=== PATIENT | male | born 1965 ===

== ENCOUNTER 2024-05-04 15:43 | Inpatient (IN) | payer BC, SELFPAY ==
[2024-05-04 15:48] VITALS: BP 140/83
--- NOTE | 2024-05-04 15:52 | HPS.HSE ---
Family Physician
-
Family Physician: Lesly GRIMM
Chief Complaint
-
NSTEMI/chest pain
History of Present Illness
58-year-old male with past medical history of insulin-dependent diabetes, HTN, hyperlipidemia presented to [facility] with complaints of chest pain for the last 2 to 3 days. Initial presentation to the emergency room showed a blood
pressure of 209/109 and EKG showed some abnormal T wave inversions and an heparin infusion was started after his troponins were positive. Echocardiogram showed an EF of 55-60% with apical anterior and apex abnormalities. He was eventually taken to
the Therapeutic Radiologist today and his left heart cath showed multivessel disease. Therefore he was transferred to [facility] for surgical evaluation.
Medical History
Past Medical History
Past Medical History: Reports HTN, Hypercholesterolemia, IDDM and MN
Past Surgical History: Reports None
Social History
Tobacco: Non-smoker
Alcohol: Occasional (weekly)
Drug: None
Personal:
Living: With Family
Family History
Family History: CAD
Allergies / Home Medications
Allergies reflects when Allergies were last updated in [facility].
Home Medications with original date entered in [facility]
Allergy/Medication List:
NKDA
Home Medications
�Medication �Instructions �Recorded
Humulin 70/30 U-100 Insulin 32 units SC BID 05/04/24
losartan 50 mg tablet 50 mg PO BID 05/04/24
rosuvastatin 20 mg tablet 20 mg PO DAILY 05/04/24
If medication reconciliation has not been performed, why?: Medication List N/A
Review of Systems
-
History Source: Patient (security orderly [id number])
A 12 point ROS was completed and negative except as noted: Yes
Cardiac: Reports Chest Pain
Physical Exam
Physical Exam
General: Well Developed and Well Nourished
HEENT: NormoCephalic and Moist mucous membranes
Respiratory: Clear
Cardiac: S1/S2 and Regular Rhythm
Breast: N/A
GI: Soft and Non Tender
Rectal: Deferred by Provider
Musculoskeletal: No Clubbing and No Edema
Skin: Warm and Dry
Neuro: AO x 3 and No Motor Deficits
Hematologic/Lymphatic: No Lymphadenopathy
Psych: Calm
Laboratory Results
-
05/04/24 17:17
05/04/24 17:17
Impression/Plan
-
IMPRESSION:
58 y/o male with PMHx listed above presented to [facility] with c/o CP x 2-3 days. He r/I for a NSTEMI and was found to have MVD via LHC. He was transferred to for CABG evaluation.
PLAN:
#CAD
#NSTEMI
- Patient's case will be discussed with attending physician. Further details regarding surgical timing intervention will be determined after attending physicians full evaluation
- Routine preoperative cardiothoracic surgery orders will be initiated.
- STS risk stratification score will be calculated after preoperative testing is complete
- Continue nitroglycerin paste and heparin gtt
- Surgery date TBD
- Continue ASA, check EKG
#Diabetes mellitus type 2
-Continue sliding scale insulin
-Hemoglobin A1c pending
#Hypertension
-Continue beta-blockers for blood pressure control
- Will hold losartan
#Hyperlipidemia
-Continue statin
--- NOTE | 2024-05-04 16:02 | CON.CAR ---
Addendum entered and electronically signed by Arley Lozano MD 05/04/24 17:34:
I saw and examined the patient.
The COMMUNITY DEVELOPMENT TECHNICIAN's note was reviewed and I agree with the note.
58-year-old male with a history of hypertension and diabetes who presented to [facility] with chest discomfort, severe hypertension and NSTEMI. Cath revealed multivessel disease Now transferred for evaluation for CABG by CT surgery. Currently
chest pain-free. Radial cath site stable.
-Continue IV heparin and aspirin
-Continue nitrates /Nitropaste if issues with recurrent chest pain would change to IV nitro
- Continue metoprolol
- CT surgery evaluationin progress. r
Original Note:
Consultation
Consultation Request
Date/Time Consultation Requested: 05/04/2024 15:55
Date/Time Consultation Performed: 05/04/2024 16:00
Requesting Provider: SIRISHA Velasquez
Performing Provider: SIRISHA Stewart for Dr. Lozano
Reason for Consultation: NSTEMI, CABG evaluation
Medical History
-
Chief Complaint: Chest pain
History of Present Illness:
Alon Zaragoza is a 58-year-old male with hypertension, dyslipidemia, and NIDDM who presented with acute onset of chest pain to [facility]. Initial blood pressure 200/109. He was found to have an elevated troponin. Transthoracic echocardiogram showed
preserved LVEF with apical lateral segment, apical anterior and apex abnormalities. He underwent cardiac catheterization with Dr. Inman. He was found to have multivessel coronary artery disease. He was transferred to [facility] for CABG
evaluation. He is currently free of chest pain at the time of this consultation.
Past Medical History
Past Medical History: CAD, HTN, Hypercholesterolemia and NIDDM
Past Surgical History: Other (Skin graft)
Social History
Alcohol: None
Drug: None
Personal:
Living: With Family
Family History
Family History: Reviewed & Not Pertinent
Review of Systems
-
History Source: Patient
All other systems: Negative unless noted
Constitutional: No Symptoms
EENT: No Symptoms
Respiratory: No Symptoms
Cardiac: No Symptoms
Abdomen/GI: No Symptoms
: No Symptoms
Musculoskeletal: No Symptoms
Skin: No Symptoms
Neurological: No Symptoms
Endocrine: No Symptoms
Hematologic/Lymphatic: No Symptoms
Physical Exam
Physical Exam
General: Well Developed, Well Nourished, No Apparent Distress and Comfortable
HEENT: Normocephalic, Anicteric and Moist Mucous Membranes
Respiratory: Clear and Non Labored Respirations
Cardiac: S1/S2 and Regular Rhythm
Breast: Deferred by me
GI: Soft, Non Tender, Non Distended and Normal Bowel Sounds
Rectal: Deferred by Provider
Genito-urinary: No Costovertebral Tender
Musculoskeletal: No Clubbing, No Cyanosis and No Edema
Skin: Warm and Dry
Neuro: AO x 3
Hematologic/Lymphatic: No Lymphadenopathy
Psych: Calm
Impression / Plan
-
IMPRESSION/PLAN: 58M with HTN, HLD, and NIDDM presented to [facility] with chest pain. An abnormal troponin led to C which demonstrated MVCAD.
NSTEMI
MVCAD
-Continue ASA/heparin
-Avoiding ACEI/ARB pending CABG evaluation
-Chest pain-free
-Right radial site stable without hematoma
-Preoperative testing per CT surgery
HTN emergency, resolved
-Initial blood pressure 200/109 in the emergency department at [facility]
-Outpatient losartan on hold
-Continue beta-tone and NTG paste
HLD
-Fasting lipid panel pending
-High intensity statin with goal LDL <55
NIDDM, HgbA1c pending
DATA:
Transthoracic echocardiogram, 05/04/2024 ([facility]):
#1 left ventricular systolic function is low normal
2. Left ventricular ejection fraction is estimated 55-60%
3. Apical lateral segment, apical anterior segment, and apex are abnormal
4. Grade 1 DD
5. Borderline LVH
6. TDS
7. Mildly dilated LA
8. Mild mitral valve regurgitation
Cardiac catheterization, 05/04/2024 ([facility]):
#1 PDA is occluded with collaterals
2. Significant distal RCA lesion
3. Significant mid LAD and proximal and mid junction D2 lesions
4. Significant OM 4 proximal and moderate mid lesions
5. OM 3 is an atretic vessel with subtotal stenosis
6. Mild disease and multiple other areas
Data Reviewed
-
Medical Tests (Nuc Med, Echo etc): Report Reviewed by me
Old Records: Reviewed
--- NOTE | 2024-05-04 16:06 | PTCARENOTE ---
Received patient transferred by ambulance to 2244. IV heparin infusing at 15ml/hr on the pump via left hand. Right radial site dressing is dry and intact with palpable radial pulse. Patient speaks malayalam, will use language line to do nursing
admission assessment. Call boyle within reach, family at the bedside.
[2024-05-04 16:13] VITALS: BMI 29.8
--- NOTE | 2024-05-04 17:23 | PTCARENOTE ---
Nursing admission assessment completed using ipad aix system administrator to answer questions. Patient denies any chest pain or sob, aware that he should notify nursing with any discomfort. Patient noted to be coughing occasionally and stated he has had some
throat pain for the past 3 days and has had a cough with some dark brown mucous. Notified CT surgery/cardiology OVEREDGE SEWER, labs sent as ordered.
[2024-05-04 17:32] LABS: Hematocrit 34.7 % (39.0-52.0); Hemoglobin 11.8 g/dL (13.0-18.0); Mean Corpuscular Hgb 30.3 pg (27.0-31.0); Mean Platelet Volume 10.3 fL (7.4-10.4); Platelet Count 238 10^3/uL (130-400); White Blood Cell Count 7.5 10^3/uL (4.8-10.8)
[2024-05-04 17:42] LABS: INR 0.97; PT 13.2 Sec (11.4-14.6)
[2024-05-04 17:44] LABS: APTT 85.1 Sec (23.4-35.0)
[2024-05-04 17:46] LABS: Glucose - Point of Care 230 mg/dl (70-99)
[2024-05-04 17:59] LABS: ALT (SGPT) 21 U/L (0-50); AST (SGOT) 29 U/L (17-59); Alkaline Phosphatase 127 U/L (38-126); Blood Urea Nitrogen 17 mg/dl (9-20); Calcium 9.1 mg/dl (8.4-10.2); Carbon Dioxide 23 mmol/L (22-30); Chloride 100 mmol/L (98-107); Estimated Creatinine Clearance 100 ml/min; Glucose 234 mg/dl (70-99); HDL Cholesterol 105 mg/dl; LDL Cholesterol, Calculated 32 mg/dl; Magnesium 1.8 mg/dl (1.6-2.3); Potassium 4.5 mmol/L (3.5-5.1); Sodium 135 mmol/L (135-145); Total Bilirubin 0.7 mg/dl (0.2-1.3); Total Cholesterol 167 mg/dl (50-199); Total Protein 6.7 g/dl (6.3-8.2); Triglyceride 152 mg/dl (10-149); Very Low Density Lipoprotein 30 mg/dl (0-30); eGFR > 60.00
[2024-05-04] MEDS: NOVOLOG FLEXPEN-MODERATE RESISTANCE 3 UNITS SC (18:00)
[2024-05-04 18:11] VITALS: BP 155/75
[2024-05-04 18:13] VITALS: BP 137/79
[2024-05-04 19:17] VITALS: BP 142/78
[2024-05-04] MEDS: LOPRESSOR 25 MG PO (19:26)
[2024-05-04] MEDS: COLACE 100 MG PO (19:26)
[2024-05-04] MEDS: SENOKOT 8.6 MG PO (19:26)
[2024-05-04] MEDS: NITRO-BID TOPICAL ×2 (19:30→23:54)
--- NOTE | 2024-05-04 19:44 | PTCARENOTE ---
Pt. received at change of shift. Pt. seen and assessed in room. Pt.'s son and at the bedside. Pt. AOx3, tele reading NSR. Pt. reports no chest pain at this time, but slight headache. Otherwise sitting comfortably in bed. This RN explained the
plan of care to patient and family, both verbalizing plan of care. Heparin gtt running at 1500units/hr, next PTT at 2300. Call boyle within reach. Continuing to monitor at this time.
[2024-05-04] MEDS: ANESTHETIC LOZENGE 1 LOZENGE PO (21:09)
[2024-05-04 21:42] LABS: Glucose - Point of Care 267 mg/dl (70-99)
[2024-05-04 22:59] VITALS: BP 112/72
[2024-05-04] MEDS: TYLENOL 650 MG PO (23:11)
[2024-05-04 23:27] LABS: APTT 115.5 Sec (23.4-35.0)
[2024-05-05] VITALS (8 sets, daily range): BP systolic 145–177; BP diastolic 74–97; BMI 29.7
--- NOTE | 2024-05-05 01:16 | W.PN.CT ---
Today's Communication / Plan
-
Plan:
-Cont. current meds (ASA, Heparin gtt, NTG paste, Lopressor, Novolog, Crestor, Artificial tears)
-Ongoing preop workup/evaluation
-Avoid JAMES-I/ARBs/Farxiga in preparation for OR
-Dr. Zaragoza to see and determine timing of CABG
Assessment / Plan
-
Assessment: 58 y/o male transfer from [facility] with MVCAD
-Multivessel CAD
-NSTEMI
-USA
-No valvular disease, per echo 05/04/24 @ [facility]
-LVEF 50-60%
-HTN (presented to [facility] with hypertensive urgency -BP 209/109)
-HLD
-T2DM (insulin dependent, A1C pending)
-Hx Shingles
-S/P skin grafts
Discussed patient care with: Cardiology, Nursing, Respiratory Therapy, Pharmacy and Care Team
Subjective
-
Date of Service: May 05, 2024
C/o 10/10 eye pain overnight which required flushing with saline this AM, appears to have resolved as pt is currently sound asleep. Denies CP/SOB
Objective Data
-
Lab Results
05/04/24 17:17
PT 13.2 Sec (11.4-14.6) 05/04/24 17:17
INR 0.97 05/04/24 17:17
APTT 115.5 Sec (23.4-35.0) H 05/04/24 23:07
Vital Signs
Vital Signs
Temp Pulse Resp BP Pulse Ox
97.8 F 89 18 112/72 97
05/04/24 23:11 05/04/24 23:00 05/04/24 23:11 05/04/24 22:59 05/04/24 23:11
SaO2: 97 (RA)
Physical Exam
-
General: Awake, Oriented and AOx3
Cardiovascular: Regular rate & rhythm, No Murmurs, No Rub and No Gallop
Respiratory: Clear
Extremities: No Edema
Data Reviewed
-
Lab Results: Results Reviewed
Medications: Active Meds Reviewed
Chest X-Ray: Report Reviewed and Image Reviewed
ECG: Report Reviewed and Image Reviewed
--- NOTE | 2024-05-05 03:15 | PTCARENOTE ---
VSS, no acute changes in assessment. SR 70s-80s. B/L radial and DP pulses palpable. Heparin gtt infusing per protocol. heart tones clear. B/L breath sounds present. pt wore 2L NC overnight, POX 97. on room air this morning, POX 99%. bowel sounds
audible. pt voids without difficulty. AM labs drawn and sent, EKG completed. pt c/o right eye discomfort, unrelieved by eye drops. CT PA notified of family's request to come to bedside.
[2024-05-05] MEDS: ANESTHETIC LOZENGE 1 LOZENGE PO ×2 (03:19→23:21)
--- NOTE | 2024-05-05 04:20 | PTCARENOTE ---
CT PA at bedside to flush pt's eye out with saline. pt reports the discomfort improved but is still there. orders received for artificial tears.
[2024-05-05 04:40] LABS: PT 13.5 Sec (11.4-14.6)
[2024-05-05 04:43] LABS: APTT 141.5 Sec (23.4-35.0)
[2024-05-05 04:59] LABS: ALT (SGPT) 20 U/L (0-50); AST (SGOT) 25 U/L (17-59); Albumin 3.8 g/dl (3.5-5.0); Alkaline Phosphatase 122 U/L (38-126); Blood Urea Nitrogen 18 mg/dl (9-20); Calcium 9.3 mg/dl (8.4-10.2); Carbon Dioxide 23 mmol/L (22-30); Chloride 103 mmol/L (98-107); Estimated Creatinine Clearance 89 ml/min; Glucose 259 mg/dl (70-99); Potassium 4.5 mmol/L (3.5-5.1); Sodium 138 mmol/L (135-145); Total Bilirubin 0.8 mg/dl (0.2-1.3); Total Protein 6.6 g/dl (6.3-8.2); eGFR > 60.00
[2024-05-05] MEDS: NITRO-BID TOPICAL ×3 (07:00→23:12)
[2024-05-05] MEDS: HEPARIN 25000 UNITS/250 ML IV ×2 (07:10→23:56)
[2024-05-05 07:47] LABS: Glucose - Point of Care 218 mg/dl (70-99)
[2024-05-05] MEDS: LOPRESSOR 25 MG PO ×2 (07:57→19:52)
[2024-05-05] MEDS: LOW STRENGTH ASPIRIN 81 MG PO (07:57)
[2024-05-05] MEDS: COLACE 100 MG PO ×2 (07:57→19:52)
[2024-05-05] MEDS: SENOKOT 8.6 MG PO ×2 (07:57→19:52)
[2024-05-05] MEDS: NOVOLOG FLEXPEN-MODERATE RESISTANCE 3 UNITS SC ×2 (08:01→12:04)
[2024-05-05] MEDS: CRESTOR 20 MG PO (08:01)
[2024-05-05] MEDS: REFRESH EYE DROPS (PF) 1 DROPS OPHTH (08:01)
--- NOTE | 2024-05-05 08:10 | W.PN.CD ---
Today's Communication / Plan
-
CP free overnight.
No new recommendation
Impression / Plan
-
IMPRESSION/PLAN: 58M with HTN, HLD, and NIDDM presented to [facility] with chest pain. An abnormal troponin led to [facility] which demonstrated MVCAD.
NSTEMI
MVCAD
-Continue ASA/heparin
-Avoiding ACEI/ARB pending CABG evaluation
-Chest pain-free
-Right radial site stable without hematoma
-Preoperative testing per CT surgery in progress
HTN emergency, resolved
-Initial blood pressure 200/109 in the emergency department at [facility]
-Outpatient losartan on hold
-Continue beta-tone
- NTP stopped due to headache
HLD
-High intensity statin with goal LDL <55
NIDDM, HgbA1c pending
DATA:
Transthoracic echocardiogram, 05/04/2024 ([facility]):
#1 left ventricular systolic function is low normal
2. Left ventricular ejection fraction is estimated 55-60%
3. Apical lateral segment, apical anterior segment, and apex are abnormal
4. Grade 1 DD
5. Borderline LVH
6. TDS
7. Mildly dilated LA
8. Mild mitral valve regurgitation
Cardiac catheterization, 05/04/2024 ([facility]):
#1 PDA is occluded with collaterals
2. Significant distal RCA lesion
3. Significant mid LAD and proximal and mid junction D2 lesions
4. Significant OM 4 proximal and moderate mid lesions
5. OM 3 is an atretic vessel with subtotal stenosis
6. Mild disease and multiple other areas
Physical Exam
Vital Signs/Labs
Vital Signs
Temp Pulse Resp BP Pulse Ox
97.8 F 81 18 159/75 95
05/05/24 07:52 05/05/24 07:51 05/05/24 07:52 05/05/24 07:51 05/05/24 07:52
05/04/24 05/05/24 05/06/24
06:59 06:59 06:59
Actual Weight 88.7 kg
05/04/24 17:17
05/05/24 03:28
PT 13.5 Sec (11.4-14.6) 05/05/24 03:28
INR 1.00 05/05/24 03:28
APTT 141.5 Sec (23.4-35.0) H 05/05/24 03:28
Magnesium 1.8 mg/dl (1.6-2.3) 05/04/24 17:17
Triglycerides 152 mg/dl (10-149) H 05/04/24 17:17
LDL Cholesterol, Calc 32 mg/dl 05/04/24 17:17
VLDL Cholesterol, Calc 30 mg/dl (0-30) 05/04/24 17:17
HDL Cholesterol 105 mg/dl 05/04/24 17:17
Physical Exam
Constitutional: No acute distress
Cardiovascular: Rhythm & rate is regular
Respiratory: Respiratory effort normal
GI: Soft
Neuro/Psych: Alert
Other: Other (cath site is fine)
Data Reviewed
-
Date of Service: May 05, 2024
Medical Decision Making: Reviewed Test Results
Medical Tests (PFT, Pathology etc): Report Reviewed by me
Labs: Labs Reviewed by me
[2024-05-05 09:11] LABS: Glycohemoglobin (HgbA1c) 10.6 % (4.0-5.6)
--- NOTE | 2024-05-05 11:19 | W.PN.UPDATE ---
Update Note
Progress Note Update
Occluded NICOLE d/shanon Bae. No intervention as unilateral disease and recommend outpatient follow-up.
[2024-05-05 12:05] LABS: Glucose - Point of Care 228 mg/dl (70-99)
--- NOTE | 2024-05-05 12:24 | CM ---
spoke to pt, and with son ( translating), he is prev indep, lives with his , 2 sons and a daughter in law in a 1 story home with no steps to enter. he is being worked up for CABG this admission. cm to preop teach medically ready. cm
following
[2024-05-05] MEDS: NITRO-BID 1 INCH TOPICAL (17:03)
[2024-05-05 17:13] LABS: Glucose - Point of Care 254 mg/dl (70-99)
[2024-05-05] MEDS: NOVOLOG FLEXPEN-MODERATE RESISTANCE 5 UNITS SC (17:14)
--- NOTE | 2024-05-05 17:25 | PTCARENOTE ---
Heparin gtt continues; Patient has denied chest pain throughout this shift; Telemetry shows normal sinus rhythm on the monitor; Patient on room air; PRN eye drops administered x1 per patient request; CT chest and cerebrovascular ultrasound completed
today; Son, , and other family members with patient throughout the day; Plan of care ongoing
[2024-05-05 18:45] LABS: APTT 104.2 Sec (23.4-35.0)
--- NOTE | 2024-05-05 21:52 | PTCARENOTE ---
Received patient at change of shift. NSR on the monitor, HR in the 80-90s. VSS. Urvashi patel in room to communicate with pt. No complaints from pt at this time, call boyle within reach.
[2024-05-05 22:26] LABS: Glucose - Point of Care 211 mg/dl (70-99)
[2024-05-06] VITALS (9 sets, daily range): BP systolic 125–174; BP diastolic 81–108; BMI 29.0
[2024-05-06] MEDS: ANESTHETIC LOZENGE 1 LOZENGE PO ×2 (03:36→20:33)
[2024-05-06] MEDS: TYLENOL 650 MG PO ×2 (03:36→21:32)
[2024-05-06 04:00] LABS: APTT 73.8 Sec (23.4-35.0)
[2024-05-06] MEDS: NITRO-BID TOPICAL ×3 (06:10→18:17)
--- NOTE | 2024-05-06 06:22 | W.PN.UPDATE ---
Update Note
Progress Note Update
CARDIAC SURGERY ATTENDING:
It was my pleasure to evaluate Mr. Zaragoza. I reviewed his available imaging. His preoperative workup is ongoing at present. I had a long conversation with Mr. Zaragoza and his family with the aid of [employer] dehydrogenation operator #[id number]. We reviewed his
coronary pathology, discussed the proposed operative interventions, reviewed the periprocedural risks (including, but not limited to, , stroke, FL, arrhythmia, PNA, MARISOL/F, bleeding, and infection), discussed the expected in-hospital
postprocedural course, and reviewed the expected outpatient recovery. All questions were answered to the best of my abilities. The patient was agreeable to proceed with surgery. I anticipate coronary artery bypass grafting x 3-5 with LONGORIA to LAD,
possible radial artery to OM, greater saphenous vein grafts to PDA, D2, and potentially D1. His carotid ultrasound demonstrated 100% occluded NICOLE, additional imaging of his head and neck have been ordered. We will complete the remainder of his
preoperative workup. I have scheduled him for surgical intervention this coming Saturday.
Thank you for the opportunity participate in the care of this patient.
Please call with any questions or concerns.
Olu Zaragoza MD
[phone]
--- NOTE | 2024-05-06 06:51 | W.PN.CT ---
Today's Communication / Plan
-
Plan:
-Cont. current meds (ASA, Heparin gtt, NTG paste, Lopressor, Novolog, Crestor, Artificial tears)
-Ongoing preop workup/evaluation (CTA of head/neck today)
-Avoid JAMES-I/ARBs/Farxiga in preparation for OR
-Cleared for surgery by Vascular Surgery in light of occluded NICOLE
-For CABG by Dr. Zaragoza on Friday 05/11
Assessment / Plan
-
Assessment: 58 y/o male transfer from [facility] with MVCAD
-Multivessel CAD
-NSTEMI
-[place]
-No valvular disease, per echo 05/04/24 @ [facility]
-LVEF 50-60%
-HTN (presented to [facility] with hypertensive urgency -BP 209/109)
-HLD
-T2DM (insulin dependent, A1C pending)
-Hx Shingles
-Carotid artery disease (100% occluded NICOLE per u/s 05/05/24)
-S/P skin grafts
Discussed patient care with: Cardiology, Nursing, Respiratory Therapy, Pharmacy and Care Team
Subjective
-
Date of Service: May 06, 2024
No issues overnight. Denies CP/SOB
Objective Data
-
Lab Results
05/04/24 17:17
05/05/24 03:28
PT 13.5 Sec (11.4-14.6) 05/05/24 03:28
INR 1.00 05/05/24 03:28
APTT 73.8 Sec (23.4-35.0) H 05/06/24 03:03
Vital Signs
Vital Signs
Temp Pulse Resp BP Pulse Ox
97.9 F 93 18 140/86 95
05/06/24 04:19 05/06/24 04:00 05/06/24 04:19 05/06/24 02:38 05/06/24 04:19
CT Intake/Output/Weight
05/05/24 05/05/24 05/06/24
06:59 18:59 06:59
Intake Total 144 / 144
Balance 144 / 144
SaO2: 95 (RA)
Physical Exam
-
General: Awake, Oriented and AOx3
Cardiovascular: Regular rate & rhythm, No Murmurs and No Gallop
Respiratory: Decreased Breath Sounds
Sternum: Stable
Incision: Clean, Dry, Intact and Dressing Intact
Extremities: No Edema
Data Reviewed
-
Lab Results: Results Reviewed
Medications: Active Meds Reviewed
Chest X-Ray: Report Reviewed and Image Reviewed
ECG: Report Reviewed and Image Reviewed
--- NOTE | 2024-05-06 08:02 | PN.DE.MGMTRT ---
Insulin Management
- -
05/06/2024 Diabetes Management Consult
Patient transferred from [facility], presented with chest pain, Nstemi, found to have multivessel disease. PMH diabetes, HTN, HLD. Prior to admission was taking 70/30 insulin 32 units BID. A1C 10.6%, cr .9, eGFR > 60.
Attempted to see patient twice this morning, patient off of the unit for testing.
Patient for CABG Saturday, 05/11. Patient receiving only corrective insulin. Glucose range yesterday 211 to 259, received 3 to 5 units corrective insulin. Will restart 70/30 insulin today at reduced dose 20 units BID first dose this AM with
moderate corrective insulin. 1800 calorie diet ordered.
Will follow
Discussed with patients nurse.
Diabetes History
- -
Pre-Admission Diabetes Regimen
Lab Results
Hemoglobin A1c 10.6 % (4.0-5.6) H 05/04/24 17:17
Insulin Pump Settings
IP Diabetes Regimen
05/05/24 05/05/24 05/05/24
12:03 17:12 22:22
POC Glucose 228 H 254 H 211 H
Meal type: Dinner
Meal type: Breakfast
Amount consumed: 100%
Amount consumed: 100%
Patient Education
[2024-05-06] MEDS: COLACE 100 MG PO ×2 (08:22→20:32)
[2024-05-06] MEDS: LOPRESSOR 25 MG PO (08:22)
[2024-05-06] MEDS: CRESTOR 20 MG PO (08:22)
[2024-05-06] MEDS: MIRALAX 17 GRAMS PO (08:22)
[2024-05-06] MEDS: SENOKOT 8.6 MG PO ×2 (08:22→20:32)
[2024-05-06] MEDS: LOW STRENGTH ASPIRIN 81 MG PO (08:22)
--- NOTE | 2024-05-06 08:46 | PN.CDI ---
CDI
- -
CDI:
Physician Documentation Request
Admit Date: 05/04/24 15:43
Dear Doctor Blake,
Patient admitted with multivessel disease.
Please review the following and provide your response in the progress notes.
The purpose of this query is not to question medical judgement, but to ensure the accuracy of the conditions reported for your patient.
Diagnosis: Hypertensive emergency
The diagnosis is documented in the record on 05/05.
There is either a lack of clinical support for this condition in the current medical record, or there is a lack of recognized standard criteria to support the condition.
Essential primary hypertension
Hypertensive Urgency - B/P is severely elevated (systolic > or = to 180 or diastolic > or = to 110) but there is no associated organ damage. Symptoms may include: headache, shortness of breath, nosebleeds, severe anxiety. Treatment usually consists
of addition to or adjusting of oral medications and does not generally necessitate hospitalization.
Hypertensive Emergency - B/P is severely elevated (systolic > or = to 180 or diastolic > or = to 110) but can occur at lower levels especially in patients who did not previously have high B/P. There is usually associated organ damage. Symptoms may
include: memory loss, LOC, CVA, VA, angina, renal failure, pulmonary edema. Generally requires more aggressive treatment and a hospitalization.
The request is for one of the following:
- Additional documentation to support the condition. Indicate if this is in lieu of what may be considered standard criteria, and/or support why the standard criteria may not be present for this patient.
- A more appropriate diagnosis, reflecting the patient's condition
- Hypertensive emergency remains a known or suspected condition for this patient and is further supported by (include additional documentation in the medical record- Ex/ associated organ damage)
- Hypertensive emergency has been ruled out and a more appropriate diagnosis for this patient's condition is .
- Other (please specify)
- Unable to determine
Use of terms such as suspected, likely, concern for, or probable (associated with a specific diagnosis that is being evaluated, monitored, or treated as if it exists) are acceptable and can be coded in the inpatient setting, when documented at the
time of discharge.
Thank you,
Camryn Tam RN, BSN
CDI Specialist
Available via [place] text
Please use your independent medical judgment in providing your response.
--- NOTE | 2024-05-06 08:59 | PN.CDI ---
CDI
- -
CDI:
Physician Documentation Request
Admit Date: 05/04/24 15:43
Dear Doctor Blake,
Patient admitted with multivessel disease.
05/05 Cardiology PN: 'HTN emergency, resolved
-Initial blood pressure 200/109 in the emergency department at [facility]
-Outpatient losartan on hold
-Continue beta-tone
- NTP stopped due to headache'
Please review the following and provide your response in the progress notes.
The purpose of this query is not to question medical judgement, but to ensure the accuracy of the conditions reported for your patient.
Diagnosis: Hypertensive emergency
The diagnosis is documented in the record on 05/05.
There is either a lack of clinical support for this condition in the current medical record, or there is a lack of recognized standard criteria to support the condition.
Essential primary hypertension
Hypertensive Urgency - B/P is severely elevated (systolic > or = to 180 or diastolic > or = to 110) but there is no associated organ damage. Symptoms may include: headache, shortness of breath, nosebleeds, severe anxiety. Treatment usually consists
of addition to or adjusting of oral medications and does not generally necessitate hospitalization.
Hypertensive Emergency - B/P is severely elevated (systolic > or = to 180 or diastolic > or = to 110) but can occur at lower levels especially in patients who did not previously have high B/P. There is usually associated organ damage. Symptoms may
include: memory loss, LOC, CVA, ND, angina, renal failure, pulmonary edema. Generally requires more aggressive treatment and a hospitalization.
The request is for one of the following:
- Additional documentation to support the condition. Indicate if this is in lieu of what may be considered standard criteria, and/or support why the standard criteria may not be present for this patient.
- A more appropriate diagnosis, reflecting the patient's condition
- Hypertensive emergency remains a known or suspected condition for this patient and is further supported by (include additional documentation in the medical record- Ex/ associated organ damage)
- Hypertensive emergency has been ruled out and a more appropriate diagnosis for this patient's condition is .
- Other (please specify)
- Unable to determine
Use of terms such as suspected, likely, concern for, or probable (associated with a specific diagnosis that is being evaluated, monitored, or treated as if it exists) are acceptable and can be coded in the inpatient setting, when documented at the
time of discharge.
Thank you,
Camryn Tam RN, BSN
CDI Specialist
Available via [facility] text
Please use your independent medical judgment in providing your response.
--- NOTE | 2024-05-06 09:29 | PTCARENOTE ---
Patient received at change of shift; Patient offers no complaints of pain or shortness of breath; Patient reports constipation, PRN miralax given; Heparin gtt infusing; radiation monitor demonstrates normal sinus rhythm; Plan of care ongoing
[2024-05-06 09:35] LABS: Glucose - Point of Care 209 mg/dl (70-99)
[2024-05-06] MEDS: NOVOLOG MIX 70/30 FLEXPEN 20 UNITS SC ×2 (09:36→18:13)
[2024-05-06] MEDS: NOVOLOG FLEXPEN-MODERATE RESISTANCE 3 UNITS SC ×2 (09:37→18:14)
--- NOTE | 2024-05-06 12:06 | CM ---
CM following for DC planning needs.
Met w/ patient, son Jerry and spouse at bedside. Son, Jerry translated for patient.
Plan is for Surgery, 05/11.
We reviewed CM role. Will plan to meet w/ patient on Saturday to complete pre-op teaching w/ family + bisque finisher.
Antic. DC to home w/ family support once medically stable.
Will follow.
[2024-05-06 12:49] LABS: Glucose - Point of Care 317 mg/dl (70-99)
[2024-05-06] MEDS: NOVOLOG FLEXPEN-MODERATE RESISTANCE 7 UNITS SC (12:59)
[2024-05-06 18:05] LABS: Glucose - Point of Care 215 mg/dl (70-99)
--- NOTE | 2024-05-06 18:45 | W.PN.CD ---
Today's Communication / Plan
-
Monitor BP.
Betab;locker increased to 50mg BID
can add amlodipine if addtional BPO control is needed.
Impression / Plan
-
IMPRESSION/PLAN: 58M with HTN, HLD, and NIDDM presented to [facility] with chest pain. An abnormal troponin led to [facility] which demonstrated MVCAD.
NSTEMI
MVCAD
-Continue ASA/heparin
-Avoiding ACEI/ARB pending CABG evaluation
-Chest pain-free
-Right radial site stable without hematoma
-Preoperative testing per CT surgery in progress
HTN emergency, resolved
-Initial blood pressure 200/109 in the emergency department at [facility]
-Continue beta-tone
- NTP
NICOLE occlusion -
per notes CT surgery has reviewed with vascular
plan to proceed with CABg
HLD - Rosuvasttain
-High intensity statin with goal LDL <55
NIDDM, HgbA1c >10
DM masnagment consult has been requested
DATA:
Transthoracic echocardiogram, 05/04/2024 ([facility]):
#1 left ventricular systolic function is low normal
2. Left ventricular ejection fraction is estimated 55-60%
3. Apical lateral segment, apical anterior segment, and apex are abnormal
4. Grade 1 DD
5. Borderline LVH
6. TDS
7. Mildly dilated LA
8. Mild mitral valve regurgitation
Cardiac catheterization, 05/04/2024 ([facility]):
#1 PDA is occluded with collaterals
2. Significant distal RCA lesion
3. Significant mid LAD and proximal and mid junction D2 lesions
4. Significant OM 4 proximal and moderate mid lesions
5. OM 3 is an atretic vessel with subtotal stenosis
6. Mild disease and multiple other areas
Physical Exam
Vital Signs/Labs
Vital Signs
Temp Pulse Resp BP Pulse Ox
98.6 F 90 18 142/81 98
05/06/24 15:38 05/06/24 18:00 05/06/24 15:38 05/06/24 15:26 05/06/24 15:45
05/05/24 05/06/24 05/07/24
06:59 06:59 06:59
Actual Weight 88.7 kg 86.6 kg
05/04/24 17:17
05/05/24 03:28
PT 13.5 Sec (11.4-14.6) 05/05/24 03:28
INR 1.00 05/05/24 03:28
APTT 73.8 Sec (23.4-35.0) H 05/06/24 03:03
Magnesium 1.8 mg/dl (1.6-2.3) 05/04/24 17:17
Triglycerides 152 mg/dl (10-149) H 05/04/24 17:17
LDL Cholesterol, Calc 32 mg/dl 05/04/24 17:17
VLDL Cholesterol, Calc 30 mg/dl (0-30) 05/04/24 17:17
HDL Cholesterol 105 mg/dl 05/04/24 17:17
Physical Exam
Constitutional: No acute distress
Cardiovascular: Rhythm & rate is regular
Respiratory: Respiratory effort normal
GI: Soft
Neuro/Psych: Alert
Data Reviewed
-
Date of Service: May 06, 2024
Medical Decision Making: Reviewed Test Results
--- NOTE | 2024-05-06 20:10 | PTCARENOTE ---
Addendum entered by Pamella Del Angel RN 05/06/24 22:32:
Patient still complaining of sore throat-- 15/10 pain. Gave Tylenol-- see MAR. Talked with son who states father has GERD. Discussed could be possible reflux given it is happening at night when patient lays flat. Told patient to call if pain does
not get better with everything given. Call boyle within reach.
Addendum entered by Pamella Del Angel RN 05/06/24 22:31:
Robitussin given-- see MAR.
Original Note:
Received patient at change of shift. Patient awake, alert, and oriented sitting on edge of bed. Family bedside. BP 165/88, NSR 70s-80s, 97% on room air. Patient c/o coughing and sore throat. States he has been coughing the last few nights.. Gave
Cepacol-- see MAR. Reached out to Narendra Jesus NP, to see about getting a cough syrup. Heparin drip running at 1200 units/min through left hand IV. Discussed plan of care. Verbalized understanding. Call boyle within reach.
[2024-05-06] MEDS: LOPRESSOR 50 MG PO (20:32)
[2024-05-06] MEDS: ROBITUSSIN DM 5 ML PO (21:01)
[2024-05-06] MEDS: HEPARIN 25000 UNITS/250 ML IV (21:02)
[2024-05-06 22:50] LABS: Glucose - Point of Care 105 mg/dl (70-99)
[2024-05-07] VITALS (8 sets, daily range): BP systolic 121–147; BP diastolic 64–86; BMI 29.0
[2024-05-07] MEDS: NITRO-BID TOPICAL ×2 (00:26→06:27)
--- NOTE | 2024-05-07 04:57 | W.PN.CT ---
Today's Communication / Plan
-
Plan:
-c/o dry cough, sore throat, mostly at night since Saturday. Remains afebrile -tx with Robitussin, Cepacol last night without much relief. Denies any pain or difficulty swallowing food. Denies nasal congestion or postnasal drip. Started Protonix for
possible GERD. R/o influenza/Covid (both negative)
-Denies any CP at rest or with walking. Refuses Nitro paste d/t headache. on Iv Heparin @ 1200 (renewed)
-Lopressor was increased to 50 bid for HTN
-Cont. current meds (ASA, Heparin gtt, Lopressor, Novolog 70/30, Crestor, Artificial tears)
-Ongoing preop workup/evaluation
-CTA of head/neck today 05/06 confirmed occluded NICOLE. Widely patent left carotid arterial system and proximal intracranial arterial circulation bilaterally.
-Avoid JAMES-I/ARBs/Farxiga in preparation for OR
-Cleared for surgery by Vascular Surgery in light of occluded NICOLE
-tentatively for CABG by Dr. Zaragoza on Friday 05/11
Assessment / Plan
-
Assessment: 58 y/o male transfer from [facility] with MVCAD
-Multivessel CAD
-NSTEMI
-USA
-100% occluded NICOLE, presumed chronic (US 05/05/24, Head/neck CTA 05/06/24)
-No valvular disease, per echo 05/04/24 @ [facility]
-LVEF 50-60%
-HTN (presented to [facility] with hypertensive urgency -BP 209/109)
-HLD
-T2DM (insulin dependent, A1C pending)
-Hx Shingles
-Carotid artery disease (100% occluded NICOLE per u/s 05/05/24)
-S/P skin grafts
-GERD
Chest CT 05/05/24:
1. No definitive acute abnormalities within the chest.
2. Normal caliber thoracic aorta with minimal foci of calcified plaque within the arch.
3. Moderate calcified plaque within the left coronary artery.
4. Small nodular area of consolidation within the posterior right lower lobe, likely atelectasis.
Carotid US 05/05/24:
1. Right carotid: Occluded right internal carotid artery. Likely chronic, but cannot ascertain definitively chronicity. Clinical correlation is advised. Recommend confirmatory enhanced imaging study.
2. Left carotid: No significant plaque or stenosis left internal carotid artery.
3. Antegrade flow bilateral vertebral arteries.
Head/neck CTA 05/06/24:
1. No blood flow identified in the right internal carotid artery suggesting proximal complete occlusion.
2. Widely patent left carotid arterial system and proximal intracranial arterial circulation bilaterally.
3. No findings to suggest bilateral vertebral artery or left internal carotid artery dissection bilaterally.
4. Mildly dominant left vertebral artery.
Palmar arch US 05/06/24:
findings suggestive of complete palmar arch
Discussed patient care with: Nursing and Care Team
Subjective
-
Date of Service: May 07, 2024
Objective Data
-
PT 13.5 Sec (11.4-14.6) 05/05/24 03:28
INR 1.00 05/05/24 03:28
APTT 73.8 Sec (23.4-35.0) H 05/06/24 03:03
Vital Signs
Vital Signs
Temp Pulse Resp BP Pulse Ox
98.1 F 72 20 145/108 98
05/06/24 23:24 05/06/24 22:00 05/06/24 23:24 05/06/24 20:32 05/06/24 23:42
CT Intake/Output/Weight
05/06/24 05/06/24 05/07/24
06:59 18:59 06:59
Intake Total 144 / 144
Balance 144 / 144
SaO2: 98
Data Reviewed
-
Lab Results: Results Reviewed
Medications: Active Meds Reviewed
Chest X-Ray: Report Reviewed and Image Reviewed
CT Scan: Report Reviewed
ECG: Report Reviewed and Image Reviewed
[2024-05-07 05:19] LABS: Hematocrit 37.6 % (39.0-52.0); Hemoglobin 12.4 g/dL (13.0-18.0); Mean Corpuscular Volume 90.8 fL (80.0-94.0); Mean Platelet Volume 10.5 fL (7.4-10.4); Platelet Count 229 10^3/uL (130-400); Red Blood Cell Count 4.14 10^6/uL (4.70-6.10); White Blood Cell Count 5.5 10^3/uL (4.8-10.8)
[2024-05-07 05:22] LABS: APTT 110.7 Sec (23.4-35.0)
[2024-05-07 05:37] LABS: Blood Urea Nitrogen 20 mg/dl (9-20); Calcium 9.2 mg/dl (8.4-10.2); Carbon Dioxide 27 mmol/L (22-30); Chloride 102 mmol/L (98-107); Estimated Creatinine Clearance 80 ml/min; Glucose 106 mg/dl (70-99); Magnesium 1.9 mg/dl (1.6-2.3); Potassium 4.2 mmol/L (3.5-5.1); Sodium 142 mmol/L (135-145); eGFR > 60.00
[2024-05-07 06:49] LABS: COVID-19 Antigen Negative (Negative)
[2024-05-07 09:31] LABS: Glucose - Point of Care 116 mg/dl (70-99)
[2024-05-07] MEDS: NOVOLOG FLEXPEN-MODERATE RESISTANCE SC (09:40)
[2024-05-07] MEDS: NOVOLOG MIX 70/30 FLEXPEN 20 UNITS SC ×2 (09:41→19:14)
[2024-05-07] MEDS: CRESTOR 20 MG PO (09:46)
[2024-05-07] MEDS: LOPRESSOR 50 MG PO ×2 (09:46→20:12)
[2024-05-07] MEDS: PROTONIX 40 MG PO (09:46)
[2024-05-07] MEDS: LOW STRENGTH ASPIRIN 81 MG PO (09:46)
[2024-05-07] MEDS: SENOKOT 8.6 MG PO ×2 (09:46→20:11)
[2024-05-07] MEDS: COLACE 100 MG PO ×2 (09:46→20:11)
--- NOTE | 2024-05-07 11:06 | W.PN.CD ---
Today's Communication / Plan
-
Continue current medical management.
Consider further evaluation for odynophagia
Impression / Plan
-
IMPRESSION/PLAN: 58M with HTN, HLD, and NIDDM presented to [facility] with chest pain. An abnormal troponin led to [facility] which demonstrated MVCAD.
NSTEMI
MVCAD
-Continue ASA/heparin
-Avoiding ACEI/ARB pending CABG evaluation
-Chest pain-free
-Right radial site stable without hematoma
-Preoperative testing per CT surgery in progress
HTN emergency, resolved
-improved, continue medications
- NTP
NICOLE occlusion -
per notes CT surgery has reviewed with vascular
plan to proceed with CABg
HLD - Rosuvasttain
-High intensity statin with goal LDL <55
NIDDM, HgbA1c >10
DM masnagment consult has been requested
Odynophagia:
-No white count, no fever
-worse last night with cough
-supportive measures not helping
-family requesting Abx, will d/w primary team, t/c medicine consult.
Subjective:
Feeling well right now but at night has severe sore throat with a cough that is nonproductive, does bring up some sputum in the AM. He has been afebrile. No white count.
DATA:
Transthoracic echocardiogram, 05/04/2024 ([facility]):
#1 left ventricular systolic function is low normal
2. Left ventricular ejection fraction is estimated 55-60%
3. Apical lateral segment, apical anterior segment, and apex are abnormal
4. Grade 1 DD
5. Borderline LVH
6. TDS
7. Mildly dilated LA
8. Mild mitral valve regurgitation
Cardiac catheterization, 05/04/2024 ([facility]):
#1 PDA is occluded with collaterals
2. Significant distal RCA lesion
3. Significant mid LAD and proximal and mid junction D2 lesions
4. Significant OM 4 proximal and moderate mid lesions
5. OM 3 is an atretic vessel with subtotal stenosis
6. Mild disease and multiple other areas
Physical Exam
Vital Signs/Labs
Vital Signs
Temp Pulse Resp BP Pulse Ox
98.1 F 100 20 138/79 94
05/07/24 08:08 05/07/24 10:00 05/07/24 08:08 05/07/24 09:46 05/07/24 08:10
05/06/24 05/07/24 05/08/24
06:59 06:59 06:59
Actual Weight 86.5 kg
05/07/24 04:37
05/07/24 04:37
PT 13.5 Sec (11.4-14.6) 05/05/24 03:28
INR 1.00 05/05/24 03:28
APTT 110.7 Sec (23.4-35.0) H 05/07/24 04:38
Magnesium 1.9 mg/dl (1.6-2.3) 05/07/24 04:37
Triglycerides 152 mg/dl (10-149) H 05/04/24 17:17
LDL Cholesterol, Calc 32 mg/dl 05/04/24 17:17
VLDL Cholesterol, Calc 30 mg/dl (0-30) 05/04/24 17:17
HDL Cholesterol 105 mg/dl 05/04/24 17:17
Physical Exam
Constitutional: No acute distress
Cardiovascular: Rhythm & rate is regular, Pedal edema is absent, JVD pressure is normal, Systolic murmur absent and Diastolic murmur absent
Respiratory: Respiratory effort normal, Lungs clear to auscul., Wheeze Absent, Crackles Absent and Rhonchi Absent
Neuro/Psych: AO x 3
Data Reviewed
-
Date of Service: May 07, 2024
Medical Decision Making: Review of Case with other Provider (ctpa C/O SORETHROAT)
EKG: Other (sinus with sinus tachycardia at times)
--- NOTE | 2024-05-07 11:17 | PTCARENOTE ---
Discussed all nursing measures and plan of care w/ pt's family. Pt's family translated plan of care w/ pt. Encouraged questions. Will monitor.
[2024-05-07 13:01] LABS: Glucose - Point of Care 202 mg/dl (70-99)
[2024-05-07] MEDS: NITRO-BID 1 INCH TOPICAL ×3 (13:16→22:56)
[2024-05-07] MEDS: NOVOLOG FLEXPEN-MODERATE RESISTANCE 3 UNITS SC ×2 (14:23→19:15)
--- NOTE | 2024-05-07 16:14 | W.PN.UPDATE ---
Update Note
Progress Note Update
Procedure Type:�Isolated CABG
PERIOPERATIVE OUTCOME ESTIMATE %
Operative Mortality 0.467%
Morbidity & Mortality 4.49%
Stroke 2.47%
Renal Failure 0.643%
Reoperation 1.39%
Prolonged Ventilation 1.65%
Deep Sternal Wound Infection 0.263%
Long Hospital Stay (>14 days) 1.89%
Short Hospital Stay (<6 days)* 68.1%
Clinical Summary
Planned Surgery: Isolated CABG, Urgent, First cardiovascular surgery
Demographics: 58 year old, male, 89kg, 173cm, BMI: 29.7 kg/m�
Lab Values: Creatinine: 0.8 mg/dL, Hematocrit: 34.7%, WBC Count: 7.5 10�/�L, Platelet Count: 220027 cells/�L
PreOp Medications: Insulin diabetes control
Substance Abuse: Never smoker, Alcohol use: 2-7 drinks/week
Risk Factors / Comorbidities: Insulin-dependent Diabetes Mellitus, Hypertension, Family Hx of CAD
Vascular RF: Cerebrovascular Disease: Other CVD, RT Carotid Sten. >=80%
Cardiac Status: NYHA Class II, Ejection Fraction = 55%
Coronary Artery Disease: 3 vessels diseased, Proximal LAD Stenosis >=70%, Non-ST Elevation WV, WV: 1 to 7 Days
Valve Disease: Mild MR, Mild TR
[2024-05-07] MEDS: TESSALON PERLES 200 MG PO (17:35)
[2024-05-07 19:08] LABS: Glucose - Point of Care 208 mg/dl (70-99)
[2024-05-07] MEDS: HEPARIN 25000 UNITS/250 ML IV (19:12)
[2024-05-07] MEDS: TYLENOL 650 MG PO (20:20)
--- NOTE | 2024-05-07 21:09 | PTCARENOTE ---
Received patient at change of shift. Patient awake, alert, and oriented, sitting on edge of bed. Family beside. 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 Heparin drip running @ 1200 units/min into left hand IV. No c/o of chest pain.
BP 123/76, NSR 90s, 100% on room air. Discussed plan of care for evening. Patient verbalized understanding. Call boyle within reach.
[2024-05-07 23:06] LABS: Glucose - Point of Care 142 mg/dl (70-99)
[2024-05-07] MEDS: CHLORASEPTIC/SORE THROAT SPRAY 1 SPRAY PO (23:19)
[2024-05-08] VITALS (7 sets, daily range): BP systolic 114–156; BP diastolic 69–89; BMI 28.8
--- NOTE | 2024-05-08 00:11 | PTCARENOTE ---
Patient c/o sore throat this evening. Order for chloraseptic/sore throat spray ordered and given-- see MAR. Patient stated it helped already.
--- NOTE | 2024-05-08 05:42 | W.PN.CT ---
Today's Communication / Plan
-
Plan:
-no significant issues overnight. Denies CP. C/o cough/sore throat - started Protonix for possible GERD, anesthetic spray, Tylenol. Negative for Influenza and Covid
-iv Heparin @ 1200 (renewed)
-BP is better controlled with increased Lopressor dose 50 bid
-Cleared for surgery by Vascular Surgery in light of occluded NICOLE
-tentatively for CABG on 05/[address] Zaragoza
Assessment / Plan
-
Assessment: 58 y/o male transfer from [facility] with MVCAD
-Multivessel CAD
-NSTEMI
-USA
-100% occluded NICOLE, presumed chronic (US 05/05/24, Head/neck CTA 05/06/24 with Widely patent left carotid arterial system and proximal intracranial arterial circulation bilaterally)
-No valvular disease, per echo 05/04/24 @ [facility]
-LVEF 50-60%
-HTN (presented to [facility] with hypertensive urgency -BP 209/109)
-HLD
-T2DM (insulin dependent, A1C pending)
-Hx Shingles
-Carotid artery disease (100% occluded NICOLE per u/s 05/05/24)
-S/P skin grafts
-GERD
-Sore throat/cough- afebrile, nl wbc. Negative for Covid and Influenza A&B
Chest CT 05/05/24:
1. No definitive acute abnormalities within the chest.
2. Normal caliber thoracic aorta with minimal foci of calcified plaque within the arch.
3. Moderate calcified plaque within the left coronary artery.
4. Small nodular area of consolidation within the posterior right lower lobe, likely atelectasis.
Carotid US 05/05/24:
1. Right carotid: Occluded right internal carotid artery. Likely chronic, but cannot ascertain definitively chronicity. Clinical correlation is advised. Recommend confirmatory enhanced imaging study.
2. Left carotid: No significant plaque or stenosis left internal carotid artery.
3. Antegrade flow bilateral vertebral arteries.
Head/neck CTA 05/06/24:
1. No blood flow identified in the right internal carotid artery suggesting proximal complete occlusion.
2. Widely patent left carotid arterial system and proximal intracranial arterial circulation bilaterally.
3. No findings to suggest bilateral vertebral artery or left internal carotid artery dissection bilaterally.
4. Mildly dominant left vertebral artery.
Palmar arch US 05/06/24:
findings suggestive of complete palmar arch
Discussed patient care with: Nursing and Care Team
Subjective
-
Date of Service: May 08, 2024
Objective Data
-
Lab Results
05/07/24 04:37
05/07/24 04:37
PT 13.5 Sec (11.4-14.6) 05/05/24 03:28
INR 1.00 05/05/24 03:28
APTT 110.7 Sec (23.4-35.0) H 05/07/24 04:38
Vital Signs
Vital Signs
Temp Pulse Resp BP Pulse Ox
97.9 F 77 16 124/73 98
05/07/24 23:09 05/07/24 22:56 05/07/24 23:09 05/07/24 22:56 05/07/24 23:09
CT Intake/Output/Weight
05/07/24 05/07/24 05/08/24
06:59 18:59 06:59
Intake Total 504 / 504
Balance 504 / 504
SaO2: 98
Physical Exam
-
General: Awake and AOx3
Cardiovascular: Regular rate & rhythm, No Murmurs and No Rub
Respiratory: Clear and Decreased Breath Sounds
Extremities: No Edema (DPs 2+ b/l)
Abdomen: soft, nontender, nondistended, + bowel sounds
Data Reviewed
-
Lab Results: Results Reviewed
Medications: Active Meds Reviewed
Chest X-Ray: Report Reviewed and Image Reviewed
ECG: Report Reviewed and Image Reviewed
[2024-05-08 06:07] LABS: APTT > 200 Sec (23.4-35.0)
[2024-05-08 06:09] LABS: Hematocrit 36.9 % (39.0-52.0); Hemoglobin 12.8 g/dL (13.0-18.0); Mean Corp Hgb Conc. 34.7 g/dL (33.0-37.0); Mean Corpuscular Hgb 31.3 pg (27.0-31.0); Mean Corpuscular Volume 90.2 fL (80.0-94.0); Mean Platelet Volume 10.7 fL (7.4-10.4); Platelet Count 249 10^3/uL (130-400); Red Blood Cell Count 4.09 10^6/uL (4.70-6.10); Red Cell Dist. Width 12.1 % (11.5-14.5); White Blood Cell Count 5.8 10^3/uL (4.8-10.8)
--- NOTE | 2024-05-08 08:54 | PN.DE.MGMTRT ---
Insulin Management
- -
05/08/2024 Diabetes Management f/u:
Patient transferred from , presented with chest pain, NSTEMI, found to have MVD CAD.
PMH: T2DM, HTN, HLD. Prior to admission was taking 70/30 insulin 32 units BID. States he has a working glucose monitor at home.
A1C 10.6%, cr .9, eGFR > 60.
Pt awake, alert, sitting up in chair with lots of family members at bedside, able to discuss diabetes mgt.
Patient for CABG Saturday, 05/11. Current diabetes regimen includes 20 units BID of 70/30 and low corrective
Glucose range yesterday 116 to 208. FBG 119 this AM.
Will make no changes to current regimen-70/30 20 units BID with moderate corrective insulin.
Will follow and adjust dose insulin if needed. Encouraged pt to contact PCP for script to start CGM use at home post discharge
Discussed with patient, family and Nurse.
Diabetes History
- -
Type of Diabetes: 2 requiring insulin
Pre-Admission Diabetes Regimen
Lab Results
Hemoglobin A1c 10.6 % (4.0-5.6) H 05/04/24 17:17
Insulin Pump Settings
IP Diabetes Regimen
05/07/24 05/07/24 05/07/24
09: 12:59 19:07
POC Glucose 116 H 202 H 208 H
05/07/24
23:05
POC Glucose 142 H
Patient Education
[2024-05-08] MEDS: NITRO-BID 1 INCH TOPICAL ×2 (09:02→17:37)
[2024-05-08 09:03] LABS: Glucose - Point of Care 119 mg/dl (70-99)
[2024-05-08] MEDS: CRESTOR 20 MG PO (09:03)
[2024-05-08] MEDS: SENOKOT 8.6 MG PO ×2 (09:03→19:28)
[2024-05-08] MEDS: LOPRESSOR 50 MG PO ×2 (09:03→19:28)
[2024-05-08] MEDS: PROTONIX 40 MG PO (09:03)
[2024-05-08] MEDS: COLACE 100 MG PO ×2 (09:03→19:28)
[2024-05-08] MEDS: LOW STRENGTH ASPIRIN 81 MG PO (09:04)
[2024-05-08] MEDS: NOVOLOG MIX 70/30 FLEXPEN 20 UNITS SC ×2 (09:04→18:06)
[2024-05-08] MEDS: NOVOLOG FLEXPEN-MODERATE RESISTANCE SC ×2 (09:07→13:18)
--- NOTE | 2024-05-08 10:59 | PTCARENOTE ---
Assumed care at 0700. Patient denies chest pain, SR on telemetry. Heparin was held until 0815 and restarted at 1000 units/hr. Family at bedside to help translate, call boyle in reach
[2024-05-08 13:15] LABS: Glucose - Point of Care 126 mg/dl (70-99)
[2024-05-08] MEDS: NITRO-BID TOPICAL (13:19)
[2024-05-08 14:20] LABS: APTT 123.3 Sec (23.4-35.0)
--- NOTE | 2024-05-08 16:41 | CM ---
CM following for DC planning needs.
Plan for CT Surgery, 05/11.
Met w/ patient, son Debi and spouse on this date to complete pre-op teaching w/ assistance of [employer] diesel crane operator.
Explained pre and post op routines.
Reviewed post op restrictions to include lifting, driving, flying and sternal precautions.
Cardiac Surgery booklet provided.
Reviewed post op MD appointments, Cardiac Rehab and visit from Transitional Care RN/ or VN based on geographical location.
Plan for Surgery 05/11.
Anticipated DC plan is for home w/ CT Transitional Care RN vs. VN.
Will follow.
[2024-05-08 17:37] LABS: Glucose - Point of Care 183 mg/dl (70-99)
[2024-05-08] MEDS: NOVOLOG FLEXPEN-MODERATE RESISTANCE 1 UNITS SC (17:42)
--- NOTE | 2024-05-08 17:54 | W.PN.CD ---
Addendum entered and electronically signed by Kimberlyn Fisher MD 05/08/24 20:11:
I saw and examined the patient.
The WOOL SCOURER's note was reviewed and I agree with the note.
Comment: No complaints me today, no chest pain shortness of breath or palpitations. On exam, he has a regular rate and rhythm normal S1-S2 no murmurs gallops were appreciated lungs clear to auscultation bilaterally. Will continue with heparin,
plan for On Saturday. Continue beta-tone. JAMES inhibitor on hold as per CT surgery team recommendation. Continue nitrate.
Original Note:
Today's Communication / Plan
-
-continue ASA, statin, BB
-continue IV heparin
Impression / Plan
-
IMPRESSION/PLAN: 58M with HTN, HLD, and NIDDM presented to [facility] with chest pain. An abnormal troponin led to [facility] which demonstrated MVCAD.
MVCAD, NSTEMI:
-Continue ASA/heparin
-Avoiding ACEI/ARB pending CABG evaluation
-Chest pain-free
-Right radial site stable without hematoma
-Preoperative testing per CT surgery in progress
HTN emergency: resolved
-continue metoprolol and nitro-paste
NICOLE occlusion:
-per notes CT surgery has reviewed with vascular and plan to proceed with CABG
HLD:
-High intensity statin with goal LDL <55
NIDDM, HgbA1c >10:
-diabetic WOOL SCOURER is following
Odynophagia:
-w/u and management per primary team
Subjective:
No complaints at present. He is OOB to chair. Denies any CP. Family helped with translation.
DATA:
Transthoracic echocardiogram, 05/04/2024 ([facility]):
#1 left ventricular systolic function is low normal
2. Left ventricular ejection fraction is estimated 55-60%
3. Apical lateral segment, apical anterior segment, and apex are abnormal
4. Grade 1 DD
5. Borderline LVH
6. TDS
7. Mildly dilated LA
8. Mild mitral valve regurgitation
Cardiac catheterization, 05/04/2024 ([facility]):
#1 PDA is occluded with collaterals
2. Significant distal RCA lesion
3. Significant mid LAD and proximal and mid junction D2 lesions
4. Significant OM 4 proximal and moderate mid lesions
5. OM 3 is an atretic vessel with subtotal stenosis
6. Mild disease and multiple other areas
Physical Exam
Vital Signs/Labs
Vital Signs
Temp Pulse Resp BP Pulse Ox
97.6 F 91 18 127/89 100
05/08/24 11:14 05/08/24 09:07 05/08/24 11:14 05/08/24 09:07 05/08/24 11:14
05/07/24 05/08/24 05/09/24
06:59 06:59 06:59
Actual Weight 86.5 kg 86 kg
05/08/24 05:35
05/07/24 04:37
PT 13.5 Sec (11.4-14.6) 05/05/24 03:28
INR 1.00 05/05/24 03:28
APTT 123.3 Sec (23.4-35.0) H 05/08/24 13:57
Magnesium 1.9 mg/dl (1.6-2.3) 05/07/24 04:37
Triglycerides 152 mg/dl (10-149) H 05/04/24 17:17
LDL Cholesterol, Calc 32 mg/dl 05/04/24 17:17
VLDL Cholesterol, Calc 30 mg/dl (0-30) 05/04/24 17:17
HDL Cholesterol 105 mg/dl 05/04/24 17:17
Physical Exam
Constitutional: No acute distress
EENT: Anicteric
Cardiovascular: Rhythm & rate is regular
Respiratory: Respiratory effort normal and Lungs clear to auscul.
Neuro/Psych: AO x 3
Data Reviewed
-
Date of Service: May 08, 2024
EKG: Other (tele )
--- NOTE | 2024-05-08 18:39 | PTCARENOTE ---
Patient with no complaints during the day. Heparin infusing per MAR. NSR on tele, call boyle in reach
[2024-05-08 20:17] LABS: APTT 107.8 Sec (23.4-35.0)
[2024-05-08] MEDS: ANESTHETIC LOZENGE 1 LOZENGE PO (20:34)
--- NOTE | 2024-05-08 21:03 | PTCARENOTE ---
Pt. received at change of shift. Pt. seen and assessed in room with and son at bedside. Pt. AOx3, no chest pain at this time with occasional non-productive cough. Tele reading NSR. Heparin gtt running at 900units/hr. Last PTT drawn at 8pm,
therapeutic x1. Next PTT to be drawn 05/09 at 2am. This RN explained plan of care to patient and family. Pt. and family verbalizes understanding. Call boyle within reach. Continuing to monitor at this time.
[2024-05-08 22:32] LABS: Glucose - Point of Care 73 mg/dl (70-99)
[2024-05-09] VITALS (7 sets, daily range): BP systolic 117–148; BP diastolic 66–84; BMI 28.9
[2024-05-09] MEDS: NITRO-BID TOPICAL ×2 (00:21→05:15)
[2024-05-09 02:35] LABS: Glucose - Point of Care 97 mg/dl (70-99)
[2024-05-09 03:17] LABS: APTT > 200 Sec (23.4-35.0)
--- NOTE | 2024-05-09 03:25 | PTCARENOTE ---
2am PTT resulted greater than 200, heparin drip on hold and titrated per protocol. CT Surg PA made aware. Continuing to monitor at this time.
--- NOTE | 2024-05-09 05:22 | W.PN.CT ---
Addendum entered and electronically signed by SIRISHA Bautista 05/09/24 14:45:
E&M code: [id number]
Original Note:
Today's Communication / Plan
-
Plan:
-no significant issues overnight. Denies CP. C/o cough/sore throat - started Protonix for possible GERD, anesthetic spray, Tylenol. Negative for Influenza and Covid
-PTT>200. iv Heparin was decreased to 700
-Cleared for surgery by Vascular Surgery in light of occluded NICOLE
-tentatively for CABG on 05/[address] Zaragoza
Assessment / Plan
-
Assessment: 58 y/o male transfer from [facility] with MVCAD
-Multivessel CAD
-NSTEMI
-[place]
-100% occluded NICOLE, presumed chronic (US 05/05/24, Head/neck CTA 05/06/24 with Widely patent left carotid arterial system and proximal intracranial arterial circulation bilaterally)
-No valvular disease, per echo 05/04/24 @ [facility]
-LVEF 50-60%
-HTN (presented to [facility] with hypertensive urgency -BP 209/109)
-HLD
-T2DM (insulin dependent, A1C pending)
-Hx Shingles
-Carotid artery disease (100% occluded NICOLE per u/s 05/05/24)
-S/P skin grafts
-GERD
-Sore throat/cough- afebrile, nl wbc. Negative for Covid and Influenza A&B
Chest CT 05/05/24:
1. No definitive acute abnormalities within the chest.
2. Normal caliber thoracic aorta with minimal foci of calcified plaque within the arch.
3. Moderate calcified plaque within the left coronary artery.
4. Small nodular area of consolidation within the posterior right lower lobe, likely atelectasis.
Carotid US 05/05/24:
1. Right carotid: Occluded right internal carotid artery. Likely chronic, but cannot ascertain definitively chronicity. Clinical correlation is advised. Recommend confirmatory enhanced imaging study.
2. Left carotid: No significant plaque or stenosis left internal carotid artery.
3. Antegrade flow bilateral vertebral arteries.
Head/neck CTA 05/06/24:
1. No blood flow identified in the right internal carotid artery suggesting proximal complete occlusion.
2. Widely patent left carotid arterial system and proximal intracranial arterial circulation bilaterally.
3. No findings to suggest bilateral vertebral artery or left internal carotid artery dissection bilaterally.
4. Mildly dominant left vertebral artery.
Palmar arch US 05/06/24:
findings suggestive of complete palmar arch
Discussed patient care with: Nursing and Care Team
Subjective
-
Date of Service: May 09, 2024
Objective Data
-
Lab Results
05/08/24 05:35
05/07/24 04:37
PT 13.5 Sec (11.4-14.6) 05/05/24 03:28
INR 1.00 05/05/24 03:28
APTT 107.8 Sec (23.4-35.0) H 05/08/24 19:57
Vital Signs
Vital Signs
Temp Pulse Resp BP Pulse Ox
98.3 F 78 20 132/79 98
05/08/24 22:58 05/08/24 23:00 05/08/24 22:58 05/08/24 22:28 05/08/24 22:58
CT Intake/Output/Weight
05/08/24 05/08/24 05/09/24
06:59 18:59 06:59
Intake Total 708 / 708
Balance 708 / 708
SaO2: 98
Physical Exam
-
General: Awake and AOx3
Cardiovascular: Regular rate & rhythm, No Murmurs and No Rub
Respiratory: Clear and Decreased Breath Sounds
Abdomen: soft, nontender, nondistended, + bowel sounds
Extremities: No Edema (DPs 2+ b/l)
Data Reviewed
-
Lab Results: Results Reviewed
Medications: Active Meds Reviewed
Chest X-Ray: Report Reviewed and Image Reviewed
ECG: Report Reviewed and Image Reviewed
[2024-05-09 08:43] LABS: Glucose - Point of Care 100 mg/dl (70-99)
[2024-05-09] MEDS: CRESTOR 20 MG PO (08:45)
[2024-05-09] MEDS: LOW STRENGTH ASPIRIN 81 MG PO (08:45)
[2024-05-09] MEDS: SENOKOT 8.6 MG PO ×2 (08:45→19:26)
[2024-05-09] MEDS: NOVOLOG FLEXPEN-MODERATE RESISTANCE SC (08:45)
[2024-05-09] MEDS: PROTONIX 40 MG PO (08:45)
[2024-05-09] MEDS: COLACE 100 MG PO ×2 (08:45→19:25)
[2024-05-09] MEDS: LOPRESSOR 50 MG PO ×2 (08:46→19:26)
[2024-05-09] MEDS: NOVOLOG MIX 70/30 FLEXPEN 20 UNITS SC ×2 (08:46→17:57)
--- NOTE | 2024-05-09 09:27 | W.PN.CD ---
Today's Communication / Plan
-
stble overnight
no new recommendations
Impression / Plan
-
IMPRESSION/PLAN: 58M with HTN, HLD, and NIDDM presented to [facility] with chest pain. An abnormal troponin led to [facility] which demonstrated MVCAD.
MVCAD, NSTEMI:
-Continue ASA/heparin
-Avoiding ACEI/ARB pending CABG evaluation
-Chest pain-free
-Right radial site stable without hematoma
-Pln for surgery Saturday
HTN emergency: resolved
-continue metoprolol and nitro-paste
NICOLE occlusion:
-per notes CT surgery has reviewed with vascular and plan to proceed with CABG
HLD:
-High intensity statin with goal LDL <55
NIDDM, HgbA1c >10:
-diabetic SENIOR DYNAMICS CRM DEVELOPER is following
Odynophagia:
-w/u and management per primary team
Subjective:
Comfortable
DATA:
Transthoracic echocardiogram, 05/04/2024 ([facility]):
#1 left ventricular systolic function is low normal
2. Left ventricular ejection fraction is estimated 55-60%
3. Apical lateral segment, apical anterior segment, and apex are abnormal
4. Grade 1 DD
5. Borderline LVH
6. TDS
7. Mildly dilated LA
8. Mild mitral valve regurgitation
Cardiac catheterization, 05/04/2024 ([facility]):
#1 PDA is occluded with collaterals
2. Significant distal RCA lesion
3. Significant mid LAD and proximal and mid junction D2 lesions
4. Significant OM 4 proximal and moderate mid lesions
5. OM 3 is an atretic vessel with subtotal stenosis
6. Mild disease and multiple other areas
Physical Exam
Vital Signs/Labs
Vital Signs
Temp Pulse Resp BP Pulse Ox
97.8 F 84 18 122/70 98
05/09/24 07:28 05/09/24 08:00 05/09/24 07:28 05/09/24 07:30 05/09/24 07:30
05/08/24 05/09/24 05/10/24
06:59 06:59 06:59
Actual Weight 86 kg 86.2 kg
05/08/24 05:35
05/07/24 04:37
PT 13.5 Sec (11.4-14.6) 05/05/24 03:28
INR 1.00 05/05/24 03:28
APTT > 200 Sec (23.4-35.0) H* 05/09/24 02:42
Magnesium 1.9 mg/dl (1.6-2.3) 05/07/24 04:37
Triglycerides 152 mg/dl (10-149) H 05/04/24 17:17
LDL Cholesterol, Calc 32 mg/dl 05/04/24 17:17
VLDL Cholesterol, Calc 30 mg/dl (0-30) 05/04/24 17:17
HDL Cholesterol 105 mg/dl 05/04/24 17:17
Physical Exam
Constitutional: No acute distress
Cardiovascular: Rhythm & rate is regular
Respiratory: Respiratory effort normal
GI: Soft
Data Reviewed
-
Date of Service: May 09, 2024
Medical Tests (PFT, Pathology etc): Report Reviewed by me
Labs: Labs Reviewed by me
[2024-05-09] MEDS: TESSALON PERLES 200 MG PO ×2 (11:31→19:26)
[2024-05-09] MEDS: NITRO-BID 1 INCH TOPICAL ×3 (11:31→23:30)
[2024-05-09 12:47] LABS: Glucose - Point of Care 156 mg/dl (70-99)
[2024-05-09] MEDS: NOVOLOG FLEXPEN-MODERATE RESISTANCE 1 UNITS SC ×2 (12:49→17:56)
[2024-05-09 17:37] LABS: Glucose - Point of Care 195 mg/dl (70-99)
--- NOTE | 2024-05-09 18:06 | PTCARENOTE ---
Pt completely content, denies any discomfort. Telemetry shows sinus rhythm.
[2024-05-09 19:04] LABS: APTT 64.7 Sec (23.4-35.0)
--- NOTE | 2024-05-09 20:53 | PTCARENOTE ---
Pt received at change of shift. NSR on tele with HR 70-80s. Pt with complaints of frequent dry cough, Tessalon given per order, see MAR. Martinez CP. R radial cath site c/d/i and MANUEL. Heparin gtt currently infusing at 700units/hr. Ambulating
independently in room without difficulty. Can make needs known. Call boyle within reach.
[2024-05-09 23:23] LABS: Glucose - Point of Care 260 mg/dl (70-99)
[2024-05-10] VITALS (7 sets, daily range): BP systolic 130–155; BP diastolic 75–89; BMI 28.9
[2024-05-10 01:42] LABS: Hematocrit 34.1 % (39.0-52.0); Hemoglobin 11.4 g/dL (13.0-18.0); Mean Corp Hgb Conc. 33.4 g/dL (33.0-37.0); Mean Corpuscular Hgb 30.2 pg (27.0-31.0); Mean Corpuscular Volume 90.5 fL (80.0-94.0); Platelet Count 235 10^3/uL (130-400); Red Blood Cell Count 3.77 10^6/uL (4.70-6.10); White Blood Cell Count 5.7 10^3/uL (4.8-10.8)
[2024-05-10] MEDS: TESSALON PERLES 200 MG PO ×3 (01:44→14:30)
[2024-05-10] MEDS: HEPARIN 25000 UNITS/250 ML IV (01:44)
[2024-05-10] MEDS: ANESTHETIC LOZENGE 1 LOZENGE PO ×4 (01:51→20:33)
--- NOTE | 2024-05-10 06:40 | W.PN.CT ---
Today's Communication / Plan
-
-No chest pain
-no significant issues overnight.
-heparin titrated to PTT, last ptt 134 drip now down to 500 u/hr pending repeat ptt
-Cleared for surgery by Vascular Surgery in light of occluded NICOLE
-tentatively for CABG on Mon 05/[address] Zaragoza
Assessment / Plan
-
Assessment: 58 y/o male transfer from [facility] with MVCAD
-Multivessel CAD
-NSTEMI
-[place]
-100% occluded NICOLE, presumed chronic (US 05/05/24, Head/neck CTA 05/06/24 with Widely patent left carotid arterial system and proximal intracranial arterial circulation bilaterally)
-No valvular disease, per echo 05/04/24 @ [facility]
-LVEF 50-60%
-HTN (presented to [facility] with hypertensive urgency -BP 209/109)
-HLD
-T2DM (insulin dependent, A1C pending)
-Hx Shingles
-Carotid artery disease (100% occluded NICOLE per u/s 05/05/24)
-S/P skin grafts
-GERD
-Sore throat/cough- afebrile, nl wbc. Negative for Covid and Influenza A&B
Chest CT 05/05/24:
1. No definitive acute abnormalities within the chest.
2. Normal caliber thoracic aorta with minimal foci of calcified plaque within the arch.
3. Moderate calcified plaque within the left coronary artery.
4. Small nodular area of consolidation within the posterior right lower lobe, likely atelectasis.
Carotid US 05/05/24:
1. Right carotid: Occluded right internal carotid artery. Likely chronic, but cannot ascertain definitively chronicity. Clinical correlation is advised. Recommend confirmatory enhanced imaging study.
2. Left carotid: No significant plaque or stenosis left internal carotid artery.
3. Antegrade flow bilateral vertebral arteries.
Head/neck CTA 05/06/24:
1. No blood flow identified in the right internal carotid artery suggesting proximal complete occlusion.
2. Widely patent left carotid arterial system and proximal intracranial arterial circulation bilaterally.
3. No findings to suggest bilateral vertebral artery or left internal carotid artery dissection bilaterally.
4. Mildly dominant left vertebral artery.
Palmar arch US 05/06/24:
findings suggestive of complete palmar arch
Subjective
-
Date of Service: May 10, 2024
Objective Data
-
Lab Results
05/10/24 01:33
05/07/24 04:37
PT 13.5 Sec (11.4-14.6) 05/05/24 03:28
INR 1.00 05/05/24 03:28
APTT 134.0 Sec (23.4-35.0) H 05/10/24 01:33
APTT Cancelled 05/10/24 01:33
Vital Signs
Vital Signs
Temp Pulse Resp BP Pulse Ox
97.7 F 78 16 133/84 98
05/10/24 01:58 05/10/24 02:00 05/10/24 01:58 05/10/24 01:59 05/10/24 01:59
CT Intake/Output/Weight
05/09/24 05/09/24 05/10/24
06:59 18:59 06:59
Intake Total 708 / 708
Balance 708 / 708
SaO2: 98
Physical Exam
-
General: Awake, Oriented and AOx3
Cardiovascular: Regular rate & rhythm
Respiratory: Clear
Extremities: No Edema
Data Reviewed
-
Lab Results: Results Reviewed
Medications: Active Meds Reviewed
CT Scan: Report Reviewed
ECG: Report Reviewed
[2024-05-10] MEDS: NITRO-BID 1 INCH TOPICAL ×4 (06:41→22:24)
[2024-05-10 08:06] LABS: Glucose - Point of Care 155 mg/dl (70-99)
--- NOTE | 2024-05-10 08:10 | PTCARENOTE ---
Assumed care of pt from prev nsg shift; Pt AAOx3 w/no c/o CP or SOB. Pt does speak only Malayalan, but has family at bedside to translate & translation device also in . Pt is able to make general needs known on his own. Pt's Vs stable this AM w/HR
in the 70's, BP 142/84. Pt w/Heparin IV infusing as ordered through patent IV line. Pt with callbell within reach & no addtl needs at this time.
--- NOTE | 2024-05-10 08:14 | W.PN.CD ---
Today's Communication / Plan
-
Dry cough reported last night. Lungs clear. Will check chest x-ray
PPI
No chest pain. Stable on telemetry.
Impression / Plan
-
IMPRESSION/PLAN: 58M with HTN, HLD, and NIDDM presented to [facility] with chest pain. An abnormal troponin led to [facility] which demonstrated MVCAD.
Mu;ltivessel CAD, NSTEMI-
-Continue ASA/heparin
-Avoiding ACEI/ARB pending CABG evaluation
-Chest pain-free
-Pln for surgery Saturday
HTN emergency: resolved
-continue metoprolol and nitro-paste
NICOLE occlusion:
-per notes CT surgery has reviewed with vascular and plan to proceed with CABG
HLD:
-High intensity statin with goal LDL <55
NIDDM, HgbA1c >10:
-diabetic BUILDING MAINTENANCE MECHANIC is following
Odynophagia listed in a previous note but in discussion with the patient with daughter interpreting he has no problem swallowing and no pain with swallowing he just had some discomfort in his throat on some nights when he was laying down. Exact
etiology unclear unclear if this could represent GERD. But he is had no problems eating no problems with food getting stuck.
Cough. Dry cough reported last night. Lungs clear. Will check chest x-ray
Subjective:
Comfortable
DATA:
Transthoracic echocardiogram, 05/04/2024 ([facility]):
#1 left ventricular systolic function is low normal
2. Left ventricular ejection fraction is estimated 55-60%
3. Apical lateral segment, apical anterior segment, and apex are abnormal
4. Grade 1 DD
5. Borderline LVH
6. TDS
7. Mildly dilated LA
8. Mild mitral valve regurgitation
Cardiac catheterization, 05/04/2024 ([facility]):
#1 PDA is occluded with collaterals
2. Significant distal RCA lesion
3. Significant mid LAD and proximal and mid junction D2 lesions
4. Significant OM 4 proximal and moderate mid lesions
5. OM 3 is an atretic vessel with subtotal stenosis
6. Mild disease and multiple other areas
Physical Exam
Vital Signs/Labs
Vital Signs
Temp Pulse Resp BP Pulse Ox
98.4 F 78 20 137/89 98
05/10/24 07:27 05/10/24 02:00 05/10/24 07:27 05/10/24 06:41 05/10/24 07:27
05/09/24 05/10/24 05/11/24
06:59 06:59 06:59
Actual Weight 86.2 kg 86.3 kg
05/10/24 01:33
05/07/24 04:37
PT 13.5 Sec (11.4-14.6) 05/05/24 03:28
INR 1.00 05/05/24 03:28
APTT 134.0 Sec (23.4-35.0) H 05/10/24 01:33
APTT Cancelled 05/10/24 01:33
Magnesium 1.9 mg/dl (1.6-2.3) 05/07/24 04:37
Triglycerides 152 mg/dl (10-149) H 05/04/24 17:17
LDL Cholesterol, Calc 32 mg/dl 05/04/24 17:17
VLDL Cholesterol, Calc 30 mg/dl (0-30) 05/04/24 17:17
HDL Cholesterol 105 mg/dl 05/04/24 17:17
Physical Exam
Constitutional: No acute distress
Cardiovascular: Rhythm & rate is regular
GI: Soft, Non tender and Normal bowel sounds
Neuro/Psych: Alert and Oriented
Data Reviewed
-
Date of Service: May 10, 2024
Medical Decision Making: Reviewed Test Results
Echo: Report Reviewed by me
Medical Tests (PFT, Pathology etc): Report Reviewed by me
Labs: Labs Reviewed by me
[2024-05-10] MEDS: CRESTOR 20 MG PO (08:50)
[2024-05-10] MEDS: LOPRESSOR 50 MG PO ×2 (08:50→20:32)
[2024-05-10] MEDS: NOVOLOG FLEXPEN-MODERATE RESISTANCE 1 UNITS SC ×2 (08:50→13:24)
[2024-05-10] MEDS: LOW STRENGTH ASPIRIN 81 MG PO (08:50)
[2024-05-10] MEDS: SENOKOT 8.6 MG PO ×2 (08:50→20:32)
[2024-05-10] MEDS: COLACE 100 MG PO ×2 (08:50→20:32)
[2024-05-10] MEDS: NOVOLOG MIX 70/30 FLEXPEN 20 UNITS SC ×2 (08:51→18:28)
[2024-05-10] MEDS: PROTONIX 40 MG PO (08:51)
[2024-05-10 12:48] LABS: Glucose - Point of Care 189 mg/dl (70-99)
[2024-05-10 16:24] LABS: APTT 55.5 Sec (23.4-35.0)
[2024-05-10 16:53] LABS: Glucose - Point of Care 212 mg/dl (70-99)
[2024-05-10] MEDS: NOVOLOG FLEXPEN-MODERATE RESISTANCE 3 UNITS SC (18:29)
[2024-05-10 22:33] LABS: Glucose - Point of Care 102 mg/dl (70-99)
[2024-05-10 22:54] LABS: APTT 69.3 Sec (23.4-35.0)
[2024-05-11] VITALS (15 sets, daily range): BP systolic 92–163; BP diastolic 54–85; BMI 28.3
--- NOTE | 2024-05-11 00:36 | PTCARENOTE ---
Pt remains NSR on tele with HR 70s. AAOx3, Malayalam speaking, material requirements worker in room and family at bedside to help with translating. Pt able to make needs known. Pt clipped and showered. No complaints of CP or SOB. Heparin gtt currently infusing
at 800units/hr. Plan for shift discussed with pt and family who verbalize understanding. NPO since midnight for CVOR in AM. Call boyle within reach.
[2024-05-11] MEDS: TESSALON PERLES 200 MG PO (01:15)
[2024-05-11] MEDS: PROTONIX 40 MG PO (05:50)
[2024-05-11] MEDS: LOPRESSOR 50 MG PO (05:50)
[2024-05-11] MEDS: MAGNESIUM OXIDE 500 MG PO (05:50)
[2024-05-11] MEDS: BACTROBAN 2% OINTMENT 1 APPLIC NASAL (05:51)
[2024-05-11] MEDS: NITRO-BID 1 INCH TOPICAL (05:51)
[2024-05-11 05:52] LABS: APTT 127.1 Sec (23.4-35.0)
[2024-05-11 06:26] LABS: Glucose - Point of Care 97 mg/dl (70-99)
[2024-05-11 07:31] LABS: ACT+ - POC 123 Seconds (82-134)
[2024-05-11 08:03] LABS: Urine Albumin 1+ (Neg - Trace); Urine Bilirubin Negative (Negative); Urine Character Clear (Clear); Urine Color Yellow; Urine Glucose Negative (Negative); Urine Ketone 1+ (Negative); Urine Leukocyte Negative (Negative); Urine Nitrite Negative (Negative); Urine Occult Blood Negative (Negative); Urine Urobilinogen Negative (Neg - 1+)
[2024-05-11 08:20] LABS: Urine Mucus Many; Urine Squamous Cell 0-2 /LPF (Few)
[2024-05-11 08:27] LABS: Urine Amorphous Seen
[2024-05-11 08:28] LABS: Urine Hyaline Cast 0-2 /LPF (0-2)
[2024-05-11 08:30] LABS: Urine Red Blood Cell 0-2 /HPF (0-2); Urine White Cell 0-2 /HPF (0-5)
--- NOTE | 2024-05-11 09:01 | W.PN.CD ---
Today's Communication / Plan
-
Surgery today.
Impression / Plan
-
IMPRESSION/PLAN: 58M with HTN, HLD, and NIDDM presented to [facility] with chest pain. An abnormal troponin led to [facility] which demonstrated MVCAD. He was subsequently transferred for CABG.
#Multivessel CAD/NSTEMI
-Acute.
-CABG today.
-Anticipate routine post operative management.
-Wean vent to extubate.
-Wean pressors for MAP > 65 mmHg, CI > 1.8 L/min/m2.
-Chest tube/pain control per CT surgery.
#HTN emergency
-Acute, resolved.
-We will address blood pressure post op.
#HARRY
-Chronic.
-NICOLE DRAFTER CIVIL (CAD).
-CT surgery has reviewed with vascular and plan to proceed with CABG.
#HLD
-Chronic.
-High intensity statin with goal LDL <55
#IDDM
-Chronic, uncontrolled.
-HgbA1c >10%.
-Diabetic WORKPLACE RELATIONS ADVISER is following.
-He will benefit from GLP1 analogs as an outpatient.
Subjective/Interval History:
Currently undergoing surgery.
DATA:
Transthoracic echocardiogram, 05/04/2024 ([facility]):
1. Left ventricular systolic function is low normal
2. Left ventricular ejection fraction is estimated 55-60%
3. Apical lateral segment, apical anterior segment, and apex are abnormal
4. Grade 1 DD
5. Borderline LVH
6. TDS
7. Mildly dilated LA
8. Mild mitral valve regurgitation
Cardiac catheterization, 05/04/2024 ([facility]):
1. PDA is occluded with collaterals
2. Significant distal RCA lesion
3. Significant mid LAD and proximal and mid junction D2 lesions
4. Significant OM 4 proximal and moderate mid lesions
5. OM 3 is an atretic vessel with subtotal stenosis
6. Mild disease and multiple other areas
Physical Exam
Vital Signs/Labs
Vital Signs
Temp Pulse Resp BP Pulse Ox
36.6 C 91 18 145/85 100
05/11/24 05:41 05/11/24 06:01 05/11/24 05:41 05/11/24 05:51 05/11/24 05:41
05/09/24 05/10/24 05/11/24
11:59 11:59 11:59
Actual Weight 86.2 kg 86.3 kg 84.4 kg
05/10/24 01:33
05/07/24 04:37
PT 13.5 Sec (11.4-14.6) 05/05/24 03:28
INR 1.00 05/05/24 03:28
APTT 127.1 Sec (23.4-35.0) H 05/11/24 05:25
APTT Cancelled 05/11/24 05:25
Magnesium 1.9 mg/dl (1.6-2.3) 05/07/24 04:37
Triglycerides 152 mg/dl (10-149) H 05/04/24 17:17
LDL Cholesterol, Calc 32 mg/dl 05/04/24 17:17
VLDL Cholesterol, Calc 30 mg/dl (0-30) 05/04/24 17:17
HDL Cholesterol 105 mg/dl 05/04/24 17:17
Physical Exam
Constitutional: Comfortable
Cardiovascular: Other (Currently arrested on bypass.)
Respiratory: Other (Vented.)
Neuro/Psych: Other (Sedated and unresponsive.)
Data Reviewed
-
Date of Service: May 11, 2024
Medical Decision Making: Reviewed Test Results, Independent Historian Assessment, Test Interpretation and Review of Case with other Provider
EKG: Tracing Personally Visualized and interpreted and Report Reviewed by me
Echo: Report Reviewed by me
X-Ray/CT/US/MRI/NUC/PET: Image Personally Visualized and interpreted and Report Reviewed by me
Medical Tests (PFT, Pathology etc): Report Reviewed by me
Labs: Labs Reviewed by me
Old Records: Reviewed
--- NOTE | 2024-05-11 09:11 | PN.DE.MGMTRT ---
Insulin Management
- -
05/11/2024: Diabetes Management f/u:
Patient transferred from [facility], presented with chest pain, NSTEMI, found to have MVD CAD.
PMH: T2DM, HTN, HLD. Prior to admission was taking 70/30 insulin 32 units BID. States he has a working glucose monitor at home.
A1C 10.6%, cr .9, eGFR > 60.
Pt is off the floor to the OR for CABG today. Was NPO after MN, FBG 97.
Pt was taking 20 units BID of 70/30 prior to surgery but will be managed on Critical Care Glycemic Protocol post-op x48 hrs.
Will follow up tomorrow
05/08 Encouraged pt to contact PCP for script to start CGM use at home post discharge/
Discussed with patient, family and Nurse.
Diabetes History
- -
Type of Diabetes: 2 requiring insulin
Pre-Admission Diabetes Regimen
Lab Results
Hemoglobin A1c 10.6 % (4.0-5.6) H 05/04/24 17:17
Insulin Pump Settings
IP Diabetes Regimen
05/10/24 05/10/24 05/10/24
12:47 16:51 22:32
POC Glucose 189 H 212 H 102 H
05/11/24
06:25
POC Glucose 97
Meal type: Breakfast
Amount consumed: 80%
Patient Education
[2024-05-11 10:15] LABS: B.E. - POC -2.8 mmol/L; Glucose - POC 120 mg/dl (70-99); HCO3 - POC 22 mmol/L (21-28); Hematocrit - POC 33 % PCV (42-52); Hemodilution- POC No; Hemoglobin Calculated - POC 11.3; Ionized Calcium - POC 1.25 mmol/L (1.15-1.33); O2 Saturation %Calculated-POC 99.6 % (94-98); PCO2 - POC 37 mmHg (35-48); PO2 - POC 179 mmHg (83-108); POC Comment PRE; Potassium - POC 4.3 mmol/L (3.5-5.1); Sodium - POC 137 mmol/L (136-145); pH - POC 7.38 (7.35-7.45)
[2024-05-11 10:22] LABS: ACT+ - POC 546 Seconds (82-134)
[2024-05-11 10:51] LABS: B.E. - POC -6.4 mmol/L; Glucose - POC 234 mg/dl (70-99); HCO3 - POC 19 mmol/L (21-28); Hematocrit - POC 32 % PCV (42-52); Hemodilution- POC No; Hemoglobin Calculated - POC 10.9; Ionized Calcium - POC 1.16 mmol/L (1.15-1.33); O2 Saturation %Calculated-POC 99.8 % (94-98); PCO2 - POC 37 mmHg (35-48); PO2 - POC 254 mmHg (83-108); POC Comment PRE; Potassium - POC 6.5 mmol/L (3.5-5.1); Sodium - POC 131 mmol/L (136-145); Specimen Type - POC Arterial; pH - POC 7.32 (7.35-7.45)
[2024-05-11 11:04] LABS: ACT+ - POC 600 Seconds (82-134)
[2024-05-11 11:21] LABS: B.E. - POC -1.4 mmol/L; Glucose - POC 197 mg/dl (70-99); HCO3 - POC 24 mmol/L (21-28); Hematocrit - POC 27 % PCV (42-52); Hemodilution- POC Yes; Hemoglobin Calculated - POC 9.1; Ionized Calcium - POC 1.06 mmol/L (1.15-1.33); O2 Saturation %Calculated-POC 99.9 % (94-98); PCO2 - POC 43 mmHg (35-48); PO2 - POC 312 mmHg (83-108); POC Comment CPB; Potassium - POC 7.5 mmol/L (3.5-5.1); Sodium - POC 131 mmol/L (136-145); Specimen Type - POC Arterial; pH - POC 7.36 (7.35-7.45)
[2024-05-11 11:35] LABS: ACT+ - POC 518 Seconds (82-134)
[2024-05-11 11:47] LABS: B.E. - POC 2.4 mmol/L; Glucose - POC 183 mg/dl (70-99); HCO3 - POC 28 mmol/L (21-28); Hematocrit - POC 25 % PCV (42-52); Hemodilution- POC Yes; Hemoglobin Calculated - POC 8.4; Ionized Calcium - POC 1.03 mmol/L (1.15-1.33); O2 Saturation %Calculated-POC 99.9 % (94-98); PCO2 - POC 46 mmHg (35-48); PO2 - POC 319 mmHg (83-108); POC Comment CPB; Potassium - POC 6.7 mmol/L (3.5-5.1); Sodium - POC 134 mmol/L (136-145); Specimen Type - POC Arterial; pH - POC 7.39 (7.35-7.45)
[2024-05-11 12:01] LABS: ACT+ - POC 477 Seconds (82-134)
--- NOTE | 2024-05-11 12:05 | CM ---
Reviewed chart. Mr. Zaragoza is in the operating room today. Prior to admission he resides with his spouse, two sone and D-I-L on a one story home without any steps to enter. Prior to admission he was independent with ambulation and adls. He does
not have any DME in the home. Medical work-up in progress. The discharge plan is to return home with his family and [facility] when medically stable.
[2024-05-11 12:24] LABS: Glucose - POC 159 mg/dl (70-99); HCO3 - POC 22 mmol/L (21-28); Hematocrit - POC 25 % PCV (42-52); Hemodilution- POC Yes; Hemoglobin Calculated - POC 8.5; Ionized Calcium - POC 1.03 mmol/L (1.15-1.33); O2 Saturation %Calculated-POC 99.9 % (94-98); PCO2 - POC 40 mmHg (35-48); PO2 - POC 315 mmHg (83-108); POC Comment CPH; Sodium - POC 139 mmol/L (136-145); Specimen Type - POC Arterial; pH - POC 7.36 (7.35-7.45)
[2024-05-11 12:38] LABS: ACT+ - POC 590 Seconds (82-134)
[2024-05-11 12:48] LABS: B.E. - POC -1.2 mmol/L; Glucose - POC 138 mg/dl (70-99); HCO3 - POC 24 mmol/L (21-28); Hematocrit - POC 24 % PCV (42-52); Hemodilution- POC Yes; Hemoglobin Calculated - POC 8.3; Ionized Calcium - POC 0.98 mmol/L (1.15-1.33); O2 Saturation %Calculated-POC 99.9 % (94-98); PCO2 - POC 39 mmHg (35-48); PO2 - POC 281 mmHg (83-108); POC Comment WARM; Potassium - POC 4.4 mmol/L (3.5-5.1); Sodium - POC 141 mmol/L (136-145); Specimen Type - POC Arterial; pH - POC 7.39 (7.35-7.45)
[2024-05-11 13:00] LABS: ACT+ - POC 571 Seconds (82-134)
[2024-05-11 13:25] LABS: B.E. - POC -1.1 mmol/L; Glucose - POC 132 mg/dl (70-99); HCO3 - POC 23 mmol/L (21-28); Hematocrit - POC 24 % PCV (42-52); Hemodilution- POC Yes; Hemoglobin Calculated - POC 8.2; Ionized Calcium - POC 0.93 mmol/L (1.15-1.33); O2 Saturation %Calculated-POC 99.9 % (94-98); PCO2 - POC 37 mmHg (35-48); PO2 - POC 340 mmHg (83-108); POC Comment WARM; Sodium - POC 141 mmol/L (136-145); Specimen Type - POC Arterial; pH - POC 7.41 (7.35-7.45)
[2024-05-11 13:34] LABS: ACT+ - POC 541 Seconds (82-134)
[2024-05-11 13:56] LABS: B.E. - POC -0.1 mmol/L; Glucose - POC 137 mg/dl (70-99); HCO3 - POC 24 mmol/L (21-28); Hematocrit - POC 24 % PCV (42-52); Hemodilution- POC Yes; Hemoglobin Calculated - POC 8.1; Ionized Calcium - POC 0.92 mmol/L (1.15-1.33); O2 Saturation %Calculated-POC 99.9 % (94-98); PCO2 - POC 37 mmHg (35-48); PO2 - POC 323 mmHg (83-108); POC Comment WARM; Potassium - POC 4.3 mmol/L (3.5-5.1); Sodium - POC 140 mmol/L (136-145); Specimen Type - POC Arterial; pH - POC 7.42 (7.35-7.45)
[2024-05-11 14:07] LABS: ACT+ - POC 534 Seconds (82-134)
[2024-05-11 14:53] LABS: B.E. - POC -1.7 mmol/L; Glucose - POC 124 mg/dl (70-99); HCO3 - POC 23 mmol/L (21-28); Hematocrit - POC 25 % PCV (42-52); Hemodilution- POC Yes; Hemoglobin Calculated - POC 8.6; Ionized Calcium - POC 1.21 mmol/L (1.15-1.33); PCO2 - POC 40 mmHg (35-48); PO2 - POC 398 mmHg (83-108); POC Comment WARM; Potassium - POC 4.1 mmol/L (3.5-5.1); Sodium - POC 143 mmol/L (136-145); Specimen Type - POC Arterial; pH - POC 7.38 (7.35-7.45)
[2024-05-11 14:56] LABS: ACT+ - POC 123 Seconds (82-134)
[2024-05-11 15:02] LABS: B.E. - POC -0.6 mmol/L; Glucose - POC 124 mg/dl (70-99); HCO3 - POC 25 mmol/L (21-28); Hematocrit - POC 22 % PCV (42-52); Hemodilution- POC Yes; Hemoglobin Calculated - POC 7.6; Ionized Calcium - POC 1.31 mmol/L (1.15-1.33); O2 Saturation %Calculated-POC 97.4 % (94-98); PCO2 - POC 42 mmHg (35-48); PO2 - POC 97 mmHg (83-108); POC Comment POST; Potassium - POC 3.9 mmol/L (3.5-5.1); Sodium - POC 142 mmol/L (136-145); Specimen Type - POC Arterial; pH - POC 7.38 (7.35-7.45)
--- NOTE | 2024-05-11 15:23 | W.CVOR.SURPR ---
CVOR Surgeon Immed Pre Op
-
I have examined this patient prior to performance of the scheduled procedure.
The patient's condition is unchanged from the time of the dictated/written History and
Physical and the patient is able to undergo the scheduled procedure.
--- NOTE | 2024-05-11 15:23 | W.IMMPOSTOP ---
Addendum entered and electronically signed by Olu Zaragoza MD 05/11/24 17:47:
ADDENDUM:
After chest closure, initial CT output was higher than expected. There was no clotting observed in CTs c/w coagulopathy. TEG obtained and indicated FFP deficiency. 2U FFP, additional 1pk PLTs, and additional 1U PRBC administered. Given CT output
was >300 over 1st 45min, I felt it was necessary to re-open and reassess surgical sites. I notified family. Upon re-entry, no significant mediastinal hematoma was present. I re-evaluated all surgical sites w/ exception of distal to OM. There was
no surgical source of bleeding. I reinforced the arteriotomy and oversewed a GSV graft clip. I placed additional topical hemostatic agents. Fortunately, with ongoing transfusion, the patient's coagulopathy improved. Chest closed.
Original Note:
Surgical Immed Post Op Note
-
CARDIAC SURGERY OPERATIVE NOTE:
Preoperative Dx:
Hypertensive emergency
NSTEMI
MVCAD
NIDDM
HTN/HLD
Postoperative Dx:
Same
Procedures:
1) Median sternotomy
2) Endoscopic harvest/prep of L RA
3) Endoscopic harvest/prep of RLE GSV
4) Takedown of ORLY (narrow pedicle)
5) CABG x 4 (ORLY to LAD, GSV to D2, RA to OM, GSV to PDA)
6) Redo of RA proximal - on-pump/arrested re-exploration of RA to OM distal anastomosis
7) Control of minor postoperative coagulopathy
Surgeon:
Olu Zaragoza M.D.
Assistants:
Niki Cadet P.A.-C.; property management assistant throughout, endoscopic harvest/prep of L RA
Latisha Diamond P.A.-C.; assist w/ endo L RA, closure ([id number])
Karen Stubbs P.A.-C.; endoscopic RLE GSV
Anesthesia:
Octavio Paredes M.D. and Anai Lee C.R.N.A.
Perfusion:
Rosie Vizcaino C.C.P. and Karen Hodges C.C.P.; XC: 100min, CPB: 235min
Findings:
ORLY was healthy appearing conduit w/ very brisk blood flow; ELD 2.5mm
L RA was adequately sized conduit w/ good back bleeding w/ scattered calcifications throughout its bryant; ELD 3.5mm
GSV was adequate conduit w/ ELD 3.0-3.25mm w/ slightly thin bryant
LAD was visible on epicardial surface distally. It took an intramyocardial course at its midpoint. Anastomosis performed just distal to intramyocardial segment. Normal bryant at this location. ELD 2.75mm
D2 was visible on the epicardial surface. ELD 1.5mm w/ normal bryant at anatomosis
OM was visible on the epicardial surface. It had scattered calcifications throughout its course. ELD 1.25mm
PDA was visible on the epicardial surface. It had dense calcifications throughout. ELD ~1.00mm to slightly less at arteriotomy. This was slightly smaller than anticipated based on surface profile.
TRANSIT TIME U/S assessment: Initially great flow in GSV to D2 and ORLY to LAD; marginal (xzro-[id number] biphasic) flow in GSV to PDA [expected given quality of distal target]; despite brisk backbleeding through RA which was used to de-air the
ascending aorta prior to removal of the partial clamp; there was NO FLOW on U/S flow probe assessment. I re-established cardioplegic arrest and took down proximal anastomosis. There was a minor dissection noted, but it was not clear this was the
causative etiology behind lack of flow. I resected approximately 1cm of graft. I hand injected cardioplegic solution through this graft and it flowed w/o resistance into distal target. Partial clamp was placed, cross-clamp was removed. Brisk
back bleeding through RA conduit observed. Repeat proximal anastomosis performed w/o incident. Good U/S flow in all grafts w/ exception of GSV to PDA (expected/small target).
Post-RODRÍGUEZ: LVEF 65%, no RWMA, no sig VHD
Transitions:
2U PRBC
1pk PLTs
Implants:
CT x 4 (B/L pleural, inferior mediastinal, superior mediastinal)
Sternal wires x 9
Complications:
Minor postoperative coagulopathy
Addition sutures placed, topical hemostatic agents applied, PLT transfused w/ improvement
Condition:
64 isoelectric sinus. 118/62. CVP 18. 100%
GTTS: levophed 4, insulin 0.5, precedex 0.5, dilt 2.5
Stable/guarded to CVICU
--- NOTE | 2024-05-11 15:31 | CON.INTV ---
Consultation
Consultation Request
Date/Time Consultation Requested: 05/11/2024 - 150
Date/Time Consultation Performed: 05/11/2024 - 153
Requesting Provider: SIRISHA Bautista
Performing Provider: Huy Montoya MD
Reason for Consultation: s/p CABG x4
Medical History
-
Chief Complaint: Chest pain
History of Present Illness:
58-year-old male non-smoker with a past medical history of DM type II, hypertension and hyperlipidemia who initially presented to [facility] with chest pain which had preceded for 2-3 days. Patient was initially hypertensive in the ER
to 209/109 with abnormal EKG with T wave inversions. Troponin was also positive. Heparin drip started. Echo reportedlty showed preserved LVEF at 55 to 60% with apical-anterior + apical abnormalities. Patient taken to the Newspaper Journalist showing
multivessel disease and then transferred here to [place] for surgical evaluation. While here, patient was maintained on heparin drip. Cardiothoracic surgery was following. A CTA head/neck was done on 05/06/2024 showing an occluded right
internal carotid artery. Vascular surgery discussed the case and no intervention was planned given it is unilateral disease and outpatient follow-up was recommended. Surgical intervention was discussed including its risks and benefits, and today
patient underwent CABG x 4 and during the case there had to be a reexploration of the RA to OM distal anastomosis. Postoperation RODRÍGUEZ showed LVEF at 65% with no regional wall motion abnormalities and no significant valvular heart disease. Patient
given a total of 2 units PRBCs and 1 pack platelets during the case. Patient then transferred to the CVICU postoperatively and automotive general manager/pulmonary service now consulted for additional management/recommendations.
When I saw the patient he was resting in bed in no acute distress. Heart rate 63, BP via right radial A-line: 105/49, BP via NIBP: 124/69 and CVP: 11. He is currently on Cardizem at 2.5mg/hr, Levophed at 2mcg/min, insulin 4 units/hr, and Precedex
at 0.5mcg/kg/hr. He has mediastinal chest tubes x 2+ bilateral pleural chest tubes. He is currently intubated on SIMV at 14/450/40%/5, with pressure support of 5. He is breathing at 14 breaths/min and VTe 564 mL and PIP: 27 cmH2O.
PMHx: Hypertension, hypercholesterolemia, DM type II and history of NE
PSHx: Non-contributory
Past Medical History
Past Medical History: Other (Above as per HPI)
Past Surgical History: Other (Above as per HPI)
Social History
Tobacco: Non-smoker
Alcohol: Occasional
Drug: None
Personal:
Living: With Family
Family History
Family History: CAD
Allergies / Home Medications
Allergies
Allergy/AdvReac Type Severity Reaction Status Date / Time
No Known Allergies Allergy Verified 05/04/24 17:03
Home Medications
�Medication �Instructions �Recorded �Confirmed �Last Taken �Type
Humulin 70/30 U-100 Insulin 32 units SC BID Diabetes 05/04/24 05/04/24 Unknown History
losartan 50 mg tablet 50 mg PO BID Blood Pressure 05/04/24 05/04/24 Unknown History
rosuvastatin 20 mg tablet 20 mg PO DAILY High Cholesterol 05/04/24 05/04/24 Unknown History
Review of Systems
-
Unable to Obtain full review of systems at this time due to: Patient Intubation
Vitals / Labs / Diagnostic Testing
Vital Signs
Temp Pulse Resp BP Pulse Ox
98.4 F 63 14 124/69 98
05/11/24 18:05 05/11/24 18:55 05/11/24 18:55 05/11/24 18:08 05/11/24 18:55
Lab Data
05/11/24 18:15
Laboratory Results
05/10/24 05/11/24 05/11/24
22:33 05:25 05:25
PT
INR
APTT 69.3 H Cancelled 127.1 H
pH
pCO2
pO2
HCO3
O2 Delivery Level
05/11/24
18:15
PT 18.8 H
INR 1.55
APTT 36.7 H
pH 7.40
pCO2 41
pO2 190 H
HCO3 25.4
O2 Delivery Level
Diagnostic Testing:
Physical Exam
-
HEENT: Normocephalic, Anicteric and Other (ETT in place)
Cardiovascular: S1/S2 and Peripheral Edema (negative)
Respiratory: Wheeze (negative), Rales (negative), Rhonchi (negative), Non-Labored Respirations and Other (Mechanical breath sounds heard bilaterally)
GI: Soft, Non Distended, Non Tender and Normal Bowel Sounds
Neurology: Tremors (negative)
Skin: Warm and Dry
General: Respiratory Distress (negative), Comfortable, Fever (negative) and Chills (negative)
Assessment
-
Assessment: 58-year-old male non-smoker with a past medical history of DM type II, hypertension and hyperlipidemia who initially presented to [facility] with chest pain which had preceded for 2-3 days. Patient was initially
hypertensive in the ER to 209/109 with abnormal EKG with T wave inversions. Troponin was also positive. Heparin drip started. Echo reportedlty showed preserved LVEF at 55 to 60% with apical-anterior + apical abnormalities. Patient taken to the
Newspaper Journalist showing multivessel disease and then transferred here to [place] for surgical evaluation. While here, patient was maintained on heparin drip. Cardiothoracic surgery was following. A CTA head/neck was done on 05/06/2024 showing an
occluded right internal carotid artery. Vascular surgery discussed the case and no intervention was planned given it is unilateral disease and outpatient follow-up was recommended. Surgical intervention was discussed including its risks and
benefits, and on 05/11/2024 the patient underwent CABG x 4 and during the case there had to be a reexploration of the RA to OM distal anastomosis. Postoperation RODRÍGUEZ showed LVEF at 65% with no regional wall motion abnormalities and no significant
valvular heart disease. Patient given a total of 2 units PRBCs and 1 pack platelets during the case. Patient then transferred to the CVICU postoperatively and automotive general manager/pulmonary service now consulted for additional management/recommendations.
Chronic conditions OIL LABORATORY ANALYST: HTN, hypercholesterolemia, DM type II and history of NE
Impression:
#Multivessel CAD with NSTEMI s/p CABG x 4 (POD #0)
#Reexploration of RA to OM distal anastomosis (POD #0)
#Acute anemia due to above
#Acute thrombocytopenia due to above
#Hypocalcemia
#Hypertensive crisis now resolved
#DM type II
#Hypertension
#Hyperlipidemia
Plan:
Ventilator settings reviewed
FiO2 will be weaned to maintain SpO2 >90-94%
Minute ventilation will be adjusted
Arterial blood gases will be monitored
Spontaneous breathing trial will be attempted with hopeful extubation after anesthesia/sedation wear off
prn nebulized bronchodilators
Pulmonary artery catheter parameters will be followed
Pressors/antihypertensive/inotropes/diuretics will be provided as needed
Maintain MAP>65
Replete electrolytes with K>4, Mg>2
Monitor chest tube output (mediastinal chest tubes x 2+ bilateral pleural chest tubes)
Monitor hemoglobin
Monitor platelet count and coags
Transfuse blood products as needed to maintain Hb>7g/dL, plt>50k (given post-operative status)
CT surgery managing chest tubes
Monitor blood sugar to maintain euglycemia with goal BG 140-180
Insulin drip per protocol
Aspiration precautions
VAP prevention protocol
DVT prophylaxis
Early nutrition
Early mobilization
Critical care statement: A total of 46 minutes of critical care time was provided for this patient today. This includes management of ventilator, spontaneous breathing trial, arterial blood gases, pressors, of unstable vital signs, evaluation of the
patient at bedside, reviewing the patient's pertinent medical records including radiographs, microbiology, laboratory evaluations, and discussion with primary team and critical care nursing.
[2024-05-11 17:44] LABS: B.E. - POC -3.2 mmol/L; Glucose - POC 125 mg/dl (70-99); HCO3 - POC 22 mmol/L (21-28); Hematocrit - POC 22 % PCV (42-52); Hemodilution- POC Yes; Hemoglobin Calculated - POC 7.6; Ionized Calcium - POC 1.19 mmol/L (1.15-1.33); PCO2 - POC 38 mmHg (35-48); PO2 - POC 397 mmHg (83-108); POC Comment POST; Potassium - POC 4.3 mmol/L (3.5-5.1); Sodium - POC 142 mmol/L (136-145); Specimen Type - POC Arterial; pH - POC 7.37 (7.35-7.45)
--- NOTE | 2024-05-11 18:13 | W.PN.UPDATE ---
Update Note
Progress Note Update
58-year-old male presented to outside hospital with chest pain ruled in for non-STEMI. He underwent left heart cath 1125 which reported triple-vessel coronary disease. Patient was transferred from [facility] for CABG evaluation. Intravenous
heparin was continued. Patient noted to have right ICA occlusion confirmed by CT of head and neck. Discussion with vascular confirmed plan for outpatient follow-up.
IV fluids: 3900
U.O.:� 2350�
Blood:� 3PRBC, 2FFP, 2Plts
Wires:� none
Inotropes:� none
Pressors:� Levophed @ 6
Sedatives:� Precedex @ 0.5
�
NEURO: sedated on Precedex, pupils +2mm B/L
RESP: #8OT @24cm> 500/60%/14/5. Lungs clear B/L. 2 mediastinal (75cc on arrival) and R/L pleural (50cc on arrival) chest tubes to -20cm suction. Sanguineous drainage
CV: RRR +S1, S2, no S3, no�rub, no murmur. Aquacell to median sternotomy. RIJ intact w/o [place]
ABD: round, soft, no BS
EXT: no edema, +2/4 DP pulses B/L, no femoral bruit, RLE JAMES wrap intact; Left radial JAMES wrap intact, pulse oximitry with adequate pleth. Right radial A-line intact
: Bae with clear yellow urine
�
A/P: POD #0 s/p CABG x 4 (ORLY to LAD, GSV to D2, RA to OM, GSV to PDA). Reopen in OR for bleeding
RODRÍGUEZ: EF�60-65%
- wean and extubate
- use train of 4 if needed (received 250 Fentanyl prior to arrival in CVICU)
- add calcium tone for radial patency as BP permits
# NSTEMI/CAD
- will require ASA/Plavix, statin (home Rosuvastatin), add beta tone when off Levophed
# Right ICA occlusion
- assess neuo status as awakens
- outpatient follow-up with vascular
- continue statin
�
# acute surgical blood loss anemia-expected
- trend CBC, coags, fibrinogen
�
�
# T2DM (A1C 10.6)
- insulin infusion x 48h
- Diabetes LOCKSTITCH ZIPPER SETTER will see patient to determine further insulin requirements after insulin infusion completed
- will benefit from addition of SGLT2i
�
[2024-05-11 18:16] LABS: Glucose - Point of Care 173 mg/dl (70-99)
[2024-05-11 18:20] LABS: B.E. 0.5 mmol/L; HCO3 25.4 mmol/L (21-28); Ionized Calcium 1.13 mMOL/L (1.15-1.33); PCO2 41 mmHg (35-48); PO2 190 mmHg (83-108); Potassium 4.5 mMOL/L (3.5-5.1); Sodium 140 mMOL/L (136-145)
[2024-05-11 18:29] LABS: Hematocrit 22.8 % (39.0-52.0); Hemoglobin 7.8 g/dL (13.0-18.0); Platelet Count 139 10^3/uL (130-400)
[2024-05-11] MEDS: ANCEF 10 IV ×2 (18:30)
--- NOTE | 2024-05-11 18:30 | PTCARENOTE ---
Pt received from CVOR at 1805; Sedated and intubated; NSR rhythm on monitor; VSS; DP and radial pulses present; Lungs diminished at bases; ETT size 8 positioned and secured at 24 cm right lip; Ventilator settings SIMV 14/550/5/5 FiO2 40%; CTx4 to
-20 cm wall suction draining bloody drainage- no air leak, tidaling, or crepitus noted; Hypoactive BS; Bae catheter in place draining clear, yellow urine; Sternal incision aquacel, approximated, and SKIVER SOCK LININGS; Right groin puncture site glued,
approximated with light drainage, ; Right A-line in place, Slic in right Cordis; all lines zeroed and leveled; #18 PIV present in right AC; Levo/insulin/precedex/Cardizem infusing. see nursing flowsheetsand worklist for detailed assessment.
[2024-05-11] MEDS: NEURONTIN PO (18:31)
[2024-05-11] MEDS: PACERONE PO (18:31)
[2024-05-11] MEDS: CRESTOR PO (18:31)
[2024-05-11] MEDS: TYLENOL PO (18:31)
[2024-05-11] MEDS: PROTONIX PO (18:31)
[2024-05-11] MEDS: NSS 500 IV (18:32)
[2024-05-11] MEDS: CALCIUM GLUCONATE 100 IV ×2 (18:32→20:00)
[2024-05-11 18:35] LABS: INR 1.55; PT 18.8 Sec (11.4-14.6)
[2024-05-11 18:36] LABS: APTT 36.7 Sec (23.4-35.0); Blood Urea Nitrogen 19 mg/dl (9-20); Estimated Creatinine Clearance 73 ml/min; Fibrinogen 265 MG/DL (199-459); Glucose 160 mg/dl (70-99); Magnesium 2.4 mg/dl (1.6-2.3)
[2024-05-11] MEDS: NOVOLOG FLEXPEN-MODERATE RESISTANCE SC ×2 (18:36)
[2024-05-11] MEDS: LOW STRENGTH ASPIRIN PO (18:36)
[2024-05-11] MEDS: LOPRESSOR PO (18:36)
[2024-05-11] MEDS: NOVOLOG MIX 70/30 FLEXPEN SC (18:36)
[2024-05-11] MEDS: COLACE PO (18:36)
[2024-05-11] MEDS: SENOKOT PO (18:37)
[2024-05-11] MEDS: NITRO-BID TOPICAL (18:37)
[2024-05-11] MEDS: DILAUDID 0.5 MG IV (18:40)
[2024-05-11 19:16] LABS: Glucose - Point of Care 161 mg/dl (70-99)
[2024-05-11] MEDS: PRECEDEX 100 IV (20:21)
[2024-05-11 20:27] LABS: Glucose - Point of Care 139 mg/dl (70-99)
[2024-05-11 21:44] LABS: Glucose - Point of Care 143 mg/dl (70-99)
[2024-05-11 22:22] LABS: Hematocrit 21.3 % (39.0-52.0); Hemoglobin 7.4 g/dL (13.0-18.0); Platelet Count 147 10^3/uL (130-400)
--- NOTE | 2024-05-11 23:00 | PTCARENOTE ---
bedside report received from previous RN. pt intubated via ETT. vent set to SIMV 14/550/5/40%. POX 100%. CT x4 intact to -20cm wall suction, drainage WNL, no air leak noted. B/L breath sounds present. NSR on monitor, HR 60s. B/L radial and DP pulses
palpable. heart tones clear. R radial art line intact. Levo gtt infusing @ 3mcg. orders received for 1u PRBCs per CT PA. RIJ cordis and slic catheter intact. Cardizem gtt infusing @ 2.5mg/hr. hypoactive bowel sounds present. Insulin gtt infusing per
glycemic protocol. fischer catheter in place draining clear, yellow urine. all surgical sites stable. see worklist for full assessment, VS, and interventions.
[2024-05-11 23:08] LABS: Glucose - Point of Care 159 mg/dl (70-99)
[2024-05-12] VITALS (37 sets, daily range): BP systolic 91–155; BP diastolic 46–91; PULSE 80; O2SAT 100
[2024-05-12] MEDS: SENOKOT-S PO (00:11)
[2024-05-12] MEDS: NEURONTIN PO (00:12)
[2024-05-12] MEDS: CARDENE 200 IV (00:21)
[2024-05-12] MEDS: TYLENOL PO ×3 (00:21→15:28)
[2024-05-12] MEDS: PACERONE PO (00:21)
[2024-05-12] MEDS: ANCEF 5 IV ×3 (00:31→13:54)
[2024-05-12] MEDS: BACTROBAN 2% OINTMENT 1 APPLIC NASAL ×3 (00:32→20:29)
[2024-05-12] MEDS: ASPIRIN 300 MG RECTAL (01:14)
[2024-05-12 01:19] LABS: Glucose - Point of Care 148 mg/dl (70-99)
[2024-05-12 02:58] LABS: Glucose - Point of Care 129 mg/dl (70-99)
[2024-05-12 03:17] LABS: Hematocrit 25.7 % (39.0-52.0); Hemoglobin 8.9 g/dL (13.0-18.0); INR 1.32; Mean Corp Hgb Conc. 34.6 g/dL (33.0-37.0); Mean Corpuscular Hgb 30.1 pg (27.0-31.0); Mean Corpuscular Volume 86.8 fL (80.0-94.0); Mean Platelet Volume 10.2 fL (7.4-10.4); PT 16.7 Sec (11.4-14.6); Platelet Count 150 10^3/uL (130-400); Red Blood Cell Count 2.96 10^6/uL (4.70-6.10); Red Cell Dist. Width 13.1 % (11.5-14.5); White Blood Cell Count 9.2 10^3/uL (4.8-10.8)
--- NOTE | 2024-05-12 03:20 | PTCARENOTE ---
pt becoming more awake, following commands. RT at bedside to place vent to CPAP breathing trial. POX 100%. NSR 60s-70s. CT output and UO WNL. all surgical sites stable. Cardizem gtt maintained @ 2.5mg. Insulin gtt maintained per protocol. AM labs
drawn and sent. EKG completed.
--- NOTE | 2024-05-12 03:30 | W.PN.CT ---
Today's Communication / Plan
-
Plan:
-No major issues overnight. Hemodynamically and neurologically intact
-Pt slow to awaken from anesthesia. Successfully extubated on 05/12/24 @ 0420
-Weaned off Levophed gtt overnight, remains on insulin gtt per protocol. Was on Cardizem gtt for radial graft patency- D/C'd @ 0600, will start PO Norvasc
-No swan, U/O since OR: 810mL
-Chest tube output: 2meds 160/250, R/L pleural 180/260
-Cont. current meds (ASA, Lopressor, Amiodarone, Crestor; will add Plavix and Norvasc)
-Will likely benefit from higher BP given NICOLE occlusion
-Diabetes education/management following (hgb A1C of 10.6)
-Tele phase tomorrow when off insulin gtt per protocol. Renewed insulin gtt
-D/C a-line and SLIC @ 0600
-D/C fischer later today, slow to awaken from anesthesia
-No temporary PW
-Maintain cordis
-No temporary PW
-Encourage use of IS
-Wean off of O2 as tolerated
-OOB into chair/Ambulate
Assessment / Plan
-
Assessment:
-S/P Median sternotomy/CABG x 4 (ORLY to LAD, GSV to D2, RA to OM, GSV to PDA)/Endoscopic harvest/prep of L RA/ Redo of RA proximal - on-pump/arrested re-exploration of RA to OM distal anastomosis, by Dr. Zaragoza, 05/11/24, pod#1
-Multivessel CAD
-NSTEMI
-[place]
-100% occluded NICOLE, presumed chronic (US 05/05/24, Head/neck CTA 05/06/24 with Widely patent left carotid arterial system and proximal intracranial arterial circulation bilaterally)
-No valvular disease, per echo 05/04/24 @ [facility]
-LVEF 50-60%; 60-65% per intraop RODRÍGUEZ
-HTN (presented to [facility] with hypertensive urgency -BP 209/109)
-HLD
-T2DM (insulin dependent, A1C 10.6)
-Hx Shingles
-Carotid artery disease (100% occluded NIOCLE per u/s 05/05/24)
-S/P skin grafts
-GERD
-Sore throat/cough- afebrile, nl wbc. Negative for Covid and Influenza A&B
-Acute postop blood loss/Anemia (transfused 3u prbc's intraop and 1u prbc postop)
-Acute postop coagulopathy (transfused 2u ffps and 2 {5 pk} plts)
-Acute postop atelectasis
-Acute postop hypovolemia with subsequent hypervolemia
Chest CT 05/05/24:
1. No definitive acute abnormalities within the chest.
2. Normal caliber thoracic aorta with minimal foci of calcified plaque within the arch.
3. Moderate calcified plaque within the left coronary artery.
4. Small nodular area of consolidation within the posterior right lower lobe, likely atelectasis.
Carotid US 05/05/24:
1. Right carotid: Occluded right internal carotid artery. Likely chronic, but cannot ascertain definitively chronicity. Clinical correlation is advised. Recommend confirmatory enhanced imaging study.
2. Left carotid: No significant plaque or stenosis left internal carotid artery.
3. Antegrade flow bilateral vertebral arteries.
Head/neck CTA 05/06/24:
1. No blood flow identified in the right internal carotid artery suggesting proximal complete occlusion.
2. Widely patent left carotid arterial system and proximal intracranial arterial circulation bilaterally.
3. No findings to suggest bilateral vertebral artery or left internal carotid artery dissection bilaterally.
4. Mildly dominant left vertebral artery.
Palmar arch US 05/06/24:
findings suggestive of complete palmar arch
Discussed patient care with: Cardiology, Nursing, Respiratory Therapy, Pharmacy and Care Team
Subjective
Procedure
S/P Median sternotomy/CABG x 4 (ORLY to LAD, GSV to D2, RA to OM, GSV to PDA)/Endoscopic harvest/prep of L RA/ Redo of RA proximal - on-pump/arrested re-exploration of RA to OM distal anastomosis, by Dr. Zaragoza, 05/11/24
-
Date of Service: May 12, 2024
Pt c/o incisional pain, otherwise feels well
Objective Data
-
Lab Results
05/12/24 02:56
PT 16.7 Sec (11.4-14.6) H 05/12/24 02:56
INR 1.32 05/12/24 02:56
APTT 36.7 Sec (23.4-35.0) H 05/11/24 18:15
Vital Signs
Vital Signs
Temp Pulse Resp BP Pulse Ox
98.0 F 68 14 114/67 100
05/12/24 03:00 05/12/24 03:00 05/12/24 03:00 05/12/24 03:00 05/12/24 03:00
CT Intake/Output/Weight
05/11/24 05/11/24 05/12/24
06:59 18:59 06:59
Intake Total 88.6 / 601.2 512.6 / 601.2
Output Total 252 / 1134 882 / 1134
Balance -163.4 / -532.8 -369.4 / -532.8
SaO2: 97 (4L)
Physical Exam
-
General: Awake, Oriented and AOx3
Cardiovascular: Regular rate & rhythm, No Murmurs, No Rub and No Gallop
Respiratory: Decreased Breath Sounds (at bases, otherwise clear)
Sternum: Stable
Incision: Clean, Dry, Intact and Dressing Intact
Extremities: Other (+trace edema)
Data Reviewed
-
Lab Results: Results Reviewed
Medications: Active Meds Reviewed
Chest X-Ray: Report Reviewed and Image Reviewed
ECG: Report Reviewed and Image Reviewed
[2024-05-12] MEDS: ZOFRAN 4 MG IV ×2 (03:47→12:20)
[2024-05-12 03:51] LABS: Blood Urea Nitrogen 22 mg/dl (9-20); Calcium 8.9 mg/dl (8.4-10.2); Carbon Dioxide 27 mmol/L (22-30); Chloride 111 mmol/L (98-107); Estimated Creatinine Clearance 67 ml/min; Glucose 141 mg/dl (70-99); Magnesium 2.3 mg/dl (1.6-2.3); Potassium 4.2 mmol/L (3.5-5.1); Sodium 143 mmol/L (135-145); eGFR > 60.00
[2024-05-12 03:58] LABS: Glucose - Point of Care 141 mg/dl (70-99)
[2024-05-12 04:06] LABS: B.E. -0.7 mmol/L; HCO3 22.9 mmol/L (21-28); Ionized Calcium 1.28 mMOL/L (1.15-1.33); O2 Saturation % 98.7 % (94-98); PCO2 33 mmHg (35-48); PO2 116 mmHg (83-108); pH 7.45 (7.35-7.45)
--- NOTE | 2024-05-12 04:20 | PTCARENOTE ---
ABG reviewed w CT PA. RT at bedside, pt extubated to 6LNC without incident. no wheezing or stridor noted. POX 100%. VSS.
[2024-05-12] MEDS: DILAUDID 0.25 MG IV (04:27)
--- NOTE | 2024-05-12 04:44 | RESPNOTE ---
Pt extubated to 6L NC. IS 250.
[2024-05-12 05:17] LABS: Glucose - Point of Care 142 mg/dl (70-99)
[2024-05-12] MEDS: DILAUDID 0.5 MG IV (05:36)
--- NOTE | 2024-05-12 06:30 | PTCARENOTE ---
per CT PA - Cardidwightm gtt off @ 0600. RIJ slic and R radial art line d/c'd without incident.
[2024-05-12 06:34] LABS: Glucose - Point of Care 137 mg/dl (70-99)
--- NOTE | 2024-05-12 07:00 | PTCARENOTE ---
Bedside walking rounds report received: patient seen on rounds resting in bed on 4L nasal canula decreased to 2L nasal canula. NSR on monitor. Patient is mainly minimal turkish speaking (Bots[place]an dialect adelina): patient sister in room and helping with
translations and needs with nursing staff) Patient is having sternal op site pain with pericardial friction rub auscultated: patient is also having continued nausea: Cristhian Matos CT surgery aware of same and new orders noted and received for same.
Repositioned frequently and HOB at 35 degrees. Chest tubes x 4 (2 meds and right and left pleural to -20cm wall suction) all without air leak and patent for serosang drainage. See flowrecord for remaining assessments.
[2024-05-12 07:02] LABS: Glucose - Point of Care 131 mg/dl (70-99)
[2024-05-12] MEDS: REGLAN 5 MG PO (07:55)
[2024-05-12] MEDS: OFIRMEV 100 IV (08:15)
--- NOTE | 2024-05-12 08:22 | W.PN.INTV ---
Today's Communication / Plan
Recommendations
Pain control
Up OOB as tolerated
Encourage incentive spirometer use
Cardiac rehab consult
Maintain SpO2 >90-94%
Continue with insulin drip with goal BG 140�180
Concrete Mixer Operator services will continue to follow along while patient remains in the CVICU
Assessment
-
Assessment: 58-year-old male non-smoker with a past medical history of DM type II, hypertension and hyperlipidemia who initially presented to [facility] with chest pain which had preceded for 2-3 days. Patient was initially
hypertensive in the ER to 209/109 with abnormal EKG with T wave inversions. Troponin was also positive. Heparin drip started. Echo reportedlty showed preserved LVEF at 55 to 60% with apical-anterior + apical abnormalities. Patient taken to the
Wood Carving Lathe Operator showing multivessel disease and then transferred here to [place] for surgical evaluation. While here, patient was maintained on heparin drip. Cardiothoracic surgery was following. A CTA head/neck was done on 05/06/2024 showing an
occluded right internal carotid artery. Vascular surgery discussed the case and no intervention was planned given it is unilateral disease and outpatient follow-up was recommended. Surgical intervention was discussed including its risks and
benefits, and on 05/11/2024 the patient underwent CABG x 4 and during the case there had to be a reexploration of the RA to OM distal anastomosis. Postoperation RODRÍGUEZ showed LVEF at 65% with no regional wall motion abnormalities and no significant
valvular heart disease. Patient given a total of 2 units PRBCs and 1 pack platelets during the case. Patient then transferred to the CVICU postoperatively and bander/pulmonary service now consulted for additional management/recommendations.
Chronic conditions MEDICAL SERVICE TECHNICIAN: HTN, hypercholesterolemia, DM type II and history of [place]
Impression:
#Multivessel CAD with NSTEMI s/p CABG x 4 (POD #1)
#Reexploration of RA to OM distal anastomosis (POD #1)
#Acute anemia due to above
#Acute thrombocytopenia due to above - plt now normalized
#Hypocalcemia
#Hypertensive crisis now resolved
#DM type II
#Hypertension
#Hyperlipidemia
Plan:
Patient successfully extubated on 05/12/2024 overnight; patient currently on room air breathing comfortably and saturating 97%
prn nebulized bronchodilators
Encourage incentive spirometer 10x per hour for at least 4 hrs a day
Maintain MAP>65
Replete electrolytes with K>4, Mg>2
Monitor chest tube output (mediastinal chest tubes x 2+ bilateral pleural chest tubes)
Monitor hemoglobin
Monitor platelet count and coags
Transfuse blood products as needed to maintain Hb>7g/dL, plt>50k (given post-operative status)
CT surgery managing chest tubes
Monitor blood sugar to maintain euglycemia with goal BG 140-180
Insulin drip per protocol
Aspiration precautions
DVT prophylaxis
Early nutrition
Early mobilization
Concrete Mixer Operator services will continue to follow along while patient remains in the CVICU.
Critical care statement: A total of 41 minutes of critical care time was provided for this patient today. This includes management of ventilator, spontaneous breathing trial, arterial blood gases, pressors, of unstable vital signs, evaluation of the
patient at bedside, reviewing the patient's pertinent medical records including radiographs, microbiology, laboratory evaluations, and discussion with primary team and critical care nursing.
Subjective Dataa
Subjective Data
Date of Service:
Date of Service: May 12, 2024
Chief Complaint: Concrete Mixer Operator Follow Up
Subjective:
Patient was seen and evaluated today at bedside. Patient's [id number], Lola, at bedside and all questions were answered. Currently he is resting in a chair in no acute distress. Currently on insulin drip at 4 units/hr, saturating 97% on
room air, heart rate 89 and BP 124/60. He has some mild left-sided pain but denies substernal chest pain, SOB, [place], abdominal pain, nausea, fevers or chills. Afebrile overnight.
Review of Systems
General: Other (Negative unless mentioned above)
Objective Data
Data Reviewed
Vital Signs / I&O / Oxygen:
Vital Signs
Temp Pulse Resp BP Pulse Ox
98.2 F 83 17 144/57 98
05/12/24 08:00 05/12/24 09:00 05/12/24 09:00 05/12/24 09:00 05/12/24 09:00
Intake and Output
05/11/24 05/12/24 05/13/24
06:59 06:59 06:59
Intake Total 960 / 960 744.2 / 818.2 262 / 262
Output Total 1324 / 1364 150 / 150
Balance 960 / 960 -579.8 / -545.8 112 / 112
SaO2 [CPAP] 100
SaO2 [SIMV] 100
SaO2 98
Nasal Cannula flow liters per 2
minute
Physical Exam
General: Respiratory Distress (negative), Comfortable, Chills (negative) and Sweats (negative)
HEENT: Normocephalic and Anicteric
Cardiovascular: S1-S2 and Peripheral Edema (negative)
Respiratory: Wheeze (negative), Crackles (Bibasilar), Rhonchi (negative), Non-Labored Respirations and Chest Tube (mediastinal chest tubes x 2+ bilateral pleural chest tubes)
GI: Soft, Non Distended, Non Tender and Normal Bowel Sounds
Neurology: Awake, Alert and Tremors (negative)
Skin: Warm, Dry, Cyanosis (negative) and Jaundice (negative)
Labs/Micro/Reports
Lab Data
05/12/24 02:56
05/12/24 02:56
Laboratory Results
05/11/24 05/12/24 05/12/24
18:15 02:56 03:55
PT 18.8 H 16.7 H
INR 1.55 1.32
APTT 36.7 H
pH 7.40 7.45
pCO2 41 33 L
pO2 190 H 116 H
HCO3 25.4 22.9
O2 Delivery Level
--- NOTE | 2024-05-12 08:25 | W.PN.ANS.POP ---
Anesthesia Post Operative
- Anesthesia Post Op Note
Vital Signs Stable-See Nursing Note: Yes
Airway Patent: Yes
Adequate Pain Control: Yes (Nurse at bedside for pain med administration)
Change in Mental Status: No
Current Postoperative Nausea & Vomiting: No
Anesthesia Complications: No
General Anesthetic Recall: No
Unplanned Admission: No
Post Op Hydration Adequate: Yes
[2024-05-12] MEDS: NOVOLIN R INSULIN INFUSION 100 IV (08:40)
[2024-05-12] MEDS: LOPRESSOR 12.5 MG PO ×2 (08:48→20:29)
[2024-05-12] MEDS: FEOSOL 325 MG PO (08:48)
[2024-05-12] MEDS: NEURONTIN 100 MG PO (08:48)
[2024-05-12] MEDS: PACERONE 200 MG PO ×3 (08:48→22:09)
[2024-05-12] MEDS: NORVASC 2.5 MG PO ×2 (08:48→20:30)
[2024-05-12] MEDS: PROTONIX 40 MG PO (08:49)
[2024-05-12] MEDS: CRESTOR 20 MG PO (08:49)
[2024-05-12] MEDS: PLAVIX 75 MG PO (08:50)
[2024-05-12] MEDS: VITAMIN C 500 MG PO (08:50)
[2024-05-12] MEDS: MAGNESIUM OXIDE 500 MG PO ×2 (08:50→20:30)
[2024-05-12] MEDS: LIDOCAINE 4% PATCH 1 PATCH TOPICAL (08:53)
[2024-05-12] MEDS: SENOKOT-S 1 TABLET PO ×2 (08:54→20:31)
[2024-05-12] MEDS: LOW STRENGTH ASPIRIN 81 MG PO (08:54)
--- NOTE | 2024-05-12 09:07 | PN.DE.MGMTRT ---
Insulin Management
- -
05/12/2024: Diabetes Management f/u:
Patient transferred from [facility], presented with chest pain, NSTEMI, found to have MVD CAD.
PMH: T2DM, HTN, HLD. Prior to admission was taking 70/30 insulin 32 units BID. States he has a working glucose monitor at home.
A1C 10.6%, cr .9, eGFR > 60.
Pt awake, alert, sitting up in chair, at bedside. POD #1 s/p CABG, doing well.
Remains on glycemic protocol, blood sugar range 129 to 142, requiring 4 to 4.5 units of insulin/hr
Will cont same for today and reassess in am for readiness to transition off drip.
Pt was taking 20 units BID of 70/30 prior to surgery. Will follow up tomorrow. Discussed with patient, family and Nurse.
05/08 Encouraged pt to contact PCP for script to start CGM use at home post discharge/
Diabetes History
- -
Type of Diabetes: 2 requiring insulin
Pre-Admission Diabetes Regimen
05/11/24 05/12/24
18:15 02:56
Creatinine 1.1 1.2
Lab Results
Hemoglobin A1c 10.6 % (4.0-5.6) H 05/04/24 17:17
Insulin Pump Settings
IP Diabetes Regimen
05/11/24 05/11/24 05/11/24
18:14 18:15 19:14
Glucose 160 H
POC Glucose 173 H 161 H
05/11/24 05/11/24 05/11/24
20:25 21:43 23:06
Glucose
POC Glucose 139 H 143 H 159 H
05/12/24 05/12/24 05/12/24
01:18 02:56 02:57
Glucose 141 H
POC Glucose 148 H 129 H
05/12/24 05/12/24 05/12/24
03:56 05:16 06:33
Glucose
POC Glucose 141 H 142 H 137 H
05/12/24
07:01
Glucose
POC Glucose 131 H
Patient Education
[2024-05-12 09:10] LABS: Glucose - Point of Care 127 mg/dl (70-99)
[2024-05-12] MEDS: ROXICODONE 5 MG PO ×2 (10:34→22:10)
[2024-05-12 11:17] LABS: Glucose - Point of Care 102 mg/dl (70-99)
--- NOTE | 2024-05-12 11:30 | PTCARENOTE ---
Patient is improving with pain and nausea: now denies nausea and sternal op site pain is improving. See MAR flow record. Patient assited OOB with assist of 2: cardiac rehab nurse and field staff. Patient titrated down to room air once oob in recliner
chair. NSR. No 'dumping' from chest tubes upon standing and per pstient was slightly lightheaded which past once patient moving and in chair. NSR. See flow record for remaining assessments.
--- NOTE | 2024-05-12 11:58 | CM ---
Reviewed chart. Met with Mr. Zaragoza and his family to review discharge plans. Family states he is a little uncomfortable today. Prior to admission he resides with his spouse, two sons and [id number] in a one story home without any steps to
enter. Prior to admission he was independent with ambulation and adls. He does not have any DME in the home. Medical work-up in progress. The discharge plan is to return home with his family and a home visit by the Transitional Care Nurse when
medically stable.
[2024-05-12 13:17] LABS: Glucose - Point of Care 134 mg/dl (70-99)
[2024-05-12] MEDS: TORADOL 30 MG IV (13:40)
[2024-05-12 15:28] LABS: Glucose - Point of Care 151 mg/dl (70-99)
[2024-05-12] MEDS: NSS IV (15:29)
[2024-05-12] MEDS: NEURONTIN 300 MG PO ×2 (15:29→22:09)
--- NOTE | 2024-05-12 16:00 | PTCARENOTE ---
No acute changes. Vitals stable. Remains oob in chair on room air. Stood with assist of nurse at chair: tolerated well: slightly lightheaded per sister and now at bedside. Patient had minimal drainage out of chest tubes upon standing.
[2024-05-12 17:11] LABS: Glucose - Point of Care 135 mg/dl (70-99)
[2024-05-12 19:56] LABS: Glucose - Point of Care 180 mg/dl (70-99)
--- NOTE | 2024-05-12 21:15 | PTCARENOTE ---
Report received from DINESH Earl. Walking rounds done. Pt sitting in chair. + language barrier. Language line in room. Family at bedside as well. Pt oriented x 4. Generalized weakness, moves all extremities x 4. Pt on room air in chair. Sats 94%.
Helped back to bed with 2 person assist. Room air sat in bed 91%. 2L/NC applied. Sats up to 98%. BBS present. Decreased to B bases. Shallow breathing due to pain at times. CDB and IS encouraged. IS Peak ~ [address] x 4, all to -20 cm suction.
Sanguinous drainage present. Audible heart tones. + pericardial rub auscultated. Pt in SR, rate 90's. Afebrile. For pulse and wound assessments, see flowsheets. Belly soft, nontender. Hypoactive bowel sounds x 4. Bae draining clear, yellow urine.
CHG bath done. Gown, leads, linen changed. Dressing change to CTs x 4 done per protocol. Glycemic protocol followed. BILL Crowley in to assess pt. Ongoing plan of care.
[2024-05-12 21:47] LABS: Glucose - Point of Care 152 mg/dl (70-99)
[2024-05-12] MEDS: TYLENOL 1000 MG PO (22:09)
--- NOTE | 2024-05-12 22:15 | PTCARENOTE ---
Roxicodone 5 mg given for c/o 8/10 mid-back pain. Scheduled Tylenol and gabapentin also given. Family staying overnight. Glycemic protocol continuing to be followed. Pt remains in SR. O2 Sat on 2L/NC 96-97%.
[2024-05-12 22:44] LABS: Glucose - Point of Care 105 mg/dl (70-99)
[2024-05-12 23:37] LABS: Glucose - Point of Care 88 mg/dl (70-99)
[2024-05-13] VITALS (24 sets, daily range): BP systolic 103–144; BP diastolic 59–97; BMI 28.5
[2024-05-13 00:44] LABS: Glucose - Point of Care 111 mg/dl (70-99)
[2024-05-13 01:43] LABS: Glucose - Point of Care 107 mg/dl (70-99)
--- NOTE | 2024-05-13 03:30 | PTCARENOTE ---
Labs drawn and sent. Pt states mid-back pain is now 3/10. Remains in SR. On 2L/NC, sats 96-100%. Glycemic protocol followed. Family remains at bedside.
[2024-05-13 03:37] LABS: Glucose - Point of Care 93 mg/dl (70-99)
[2024-05-13 03:58] LABS: Mean Corp Hgb Conc. 33.3 g/dL (33.0-37.0); Mean Corpuscular Hgb 30.3 pg (27.0-31.0); Mean Corpuscular Volume 90.9 fL (80.0-94.0); Mean Platelet Volume 10.6 fL (7.4-10.4); Platelet Count 151 10^3/uL (130-400); Red Blood Cell Count 2.64 10^6/uL (4.70-6.10); Red Cell Dist. Width 13.6 % (11.5-14.5); White Blood Cell Count 11.3 10^3/uL (4.8-10.8)
[2024-05-13 04:07] LABS: Blood Urea Nitrogen 30 mg/dl (9-20); Calcium 8.3 mg/dl (8.4-10.2); Carbon Dioxide 30 mmol/L (22-30); Chloride 107 mmol/L (98-107); Estimated Creatinine Clearance 64 ml/min; Glucose 84 mg/dl (70-99); Magnesium 2.5 mg/dl (1.6-2.3); Sodium 142 mmol/L (135-145); eGFR 58.99
[2024-05-13] MEDS: ROXICODONE 5 MG PO (04:47)
[2024-05-13] MEDS: TYLENOL 1000 MG PO ×3 (04:48→21:33)
[2024-05-13 04:56] LABS: Glucose - Point of Care 102 mg/dl (70-99)
--- NOTE | 2024-05-13 05:02 | PTCARENOTE ---
Pt c/o sternal and mid-back pain 01/17. Roxicodone 5 mg po given for pain, with Tylenol as scheduled. Glucose check done. Glycemic protocol followed. Creatinine 1.4 this am, discussed with BILL Crowley. Will leave Bae in until team rounds. UO 25-40
mls/hr. Pt remains in SR.
--- NOTE | 2024-05-13 05:04 | W.PN.CT ---
Today's Communication / Plan
-
-pod #2
-no issues overnight
-CT output: 2 med 65/170, 2 pleur
-Cr trended up - 1.4 today (1.2 on 05/12 and 1.0 preop)- follow
-wt is up 11 lbs. Consider diuresis
-wean off O2 as tolerated - pOx 98 on 2L
-current meds (ASA, Plavix, Crestor, Norvasc 2.5 bid for radial graft, Lopressor, Amio, Feosol, Protonix)
-encourage IS, OOB
Assessment / Plan
-
Assessment:
-S/P Median sternotomy/CABG x 4 (ORLY to LAD, GSV to D2, RA to OM, GSV to PDA)/Endoscopic harvest/prep of L RA/ Redo of RA proximal - on-pump/arrested re-exploration of RA to OM distal anastomosis, by Dr. Zaragoza, 05/11/24, pod#2
-Multivessel CAD
-NSTEMI
-[place]
-100% occluded NICOLE, presumed chronic (US 05/05/24, Head/neck CTA 05/06/24 with Widely patent left carotid arterial system and proximal intracranial arterial circulation bilaterally)
-No valvular disease, per echo 05/04/24 @ [facility]
-LVEF 50-60%; 60-65% per intraop RODRÍGUEZ
-HTN (presented to [facility] with hypertensive urgency -BP 209/109)
-HLD
-T2DM (insulin dependent, A1C 10.6)
-Hx Shingles
-Carotid artery disease (100% occluded NICOLE per u/s 05/05/24)
-S/P skin grafts
-GERD
-Sore throat/cough- afebrile, nl wbc. Negative for Covid and Influenza A&B
-Acute postop blood loss/Anemia (transfused 3u prbc's intraop and 1u prbc postop)
-Acute postop coagulopathy (transfused 2u ffps and 2 {5 pk} plts)
-Acute postop atelectasis
-Acute postop hypovolemia with subsequent hypervolemia
-MARISOL
Chest CT 05/05/24:
1. No definitive acute abnormalities within the chest.
2. Normal caliber thoracic aorta with minimal foci of calcified plaque within the arch.
3. Moderate calcified plaque within the left coronary artery.
4. Small nodular area of consolidation within the posterior right lower lobe, likely atelectasis.
Carotid US 05/05/24:
1. Right carotid: Occluded right internal carotid artery. Likely chronic, but cannot ascertain definitively chronicity. Clinical correlation is advised. Recommend confirmatory enhanced imaging study.
2. Left carotid: No significant plaque or stenosis left internal carotid artery.
3. Antegrade flow bilateral vertebral arteries.
Head/neck CTA 05/06/24:
1. No blood flow identified in the right internal carotid artery suggesting proximal complete occlusion.
2. Widely patent left carotid arterial system and proximal intracranial arterial circulation bilaterally.
3. No findings to suggest bilateral vertebral artery or left internal carotid artery dissection bilaterally.
4. Mildly dominant left vertebral artery.
Palmar arch US 05/06/24:
findings suggestive of complete palmar arch
Discussed patient care with: Nursing and Care Team
Subjective
Procedure
S/P Median sternotomy/CABG x 4 (ORLY to LAD, GSV to D2, RA to OM, GSV to PDA)/Endoscopic harvest/prep of L RA/ Redo of RA proximal - on-pump/arrested re-exploration of RA to OM distal anastomosis, by Dr. Zaragoza, 05/11/24
-
Date of Service: May 13, 2024
Objective Data
-
Lab Results
05/13/24 03:33
05/13/24 03:33
PT 16.7 Sec (11.4-14.6) H 05/12/24 02:56
INR 1.32 05/12/24 02:56
APTT 36.7 Sec (23.4-35.0) H 05/11/24 18:15
Vital Signs
Vital Signs
Temp Pulse Resp BP Pulse Ox
98 F 90 16 109/68 100
05/13/24 03:00 05/13/24 05:00 05/13/24 05:00 05/13/24 04:00 05/13/24 05:00
CT Intake/Output/Weight
05/12/24 05/12/24 05/13/24
06:59 18:59 06:59
Intake Total 655.6 / 818.2 824.3 / 1181.5 357.2 / 1181.5
Output Total 1072 / 1364 565 / 960 395 / 960
Balance -416.4 / -545.8 259.3 / 221.5 -37.8 / 221.5
SaO2: 100
Physical Exam
-
General: Awake and AOx3
Cardiovascular: Regular rate & rhythm, No Murmurs and Rub
Respiratory: Decreased Breath Sounds
Sternum: Stable
Incision: Clean, Dry and Intact
Extremities: Other (trace edema b/l, DPs by Doppler)
Abdomen: soft, nontender, nondistended, bowel sounds, + flatus, no BM
Data Reviewed
-
Lab Results: Results Reviewed
Medications: Active Meds Reviewed
Chest X-Ray: Report Reviewed and Image Reviewed
ECG: Report Reviewed and Image Reviewed
--- NOTE | 2024-05-13 07:00 | PTCARENOTE ---
Bedside walking rounds report received. Patient seen on rounds resting in bed. Sister in law here at bedside for support and language needs for basics of patient. Language line video IPad available in room if needed. Patient is currently in NSR on
monitor and is on 2l nasal canula. Denies significant pain and denies nausea. Plan per CT surgery to possibly dc chest tubes this am as well as Bae catheter as determined by Dr. Zaragoza and CT surgical team. See flowrecord for remaining assessments
and outputs/chest tube drainage.
--- NOTE | 2024-05-13 07:21 | PTCARENOTE ---
Report to DINESH Earl. Walking rounds done. Dr. Zaragoza in this am to see pt.
[2024-05-13 07:26] LABS: Glucose - Point of Care 100 mg/dl (70-99)
--- NOTE | 2024-05-13 07:57 | PN.DE.MGMTRT ---
Insulin Management
- -
05/13/2024: Diabetes Management f/u:
Patient transferred from [facility], presented with chest pain, NSTEMI, found to have MVD CAD.
PMH: T2DM, HTN, HLD. Prior to admission was taking 70/30 insulin 32 units BID. States he has a working glucose monitor at home.
A1C 10.6%, cr .9, eGFR > 60.
Pt awake, alert, sitting up in chair, family at bedside. POD #2 s/p CABG, doing well.
Remains on glycemic protocol, blood sugar range 93 to 111, requiring 0.8 to 5 units of insulin/hr
Will transition off glycemic protocol to Insulin SQ.
Give reduced dose of 70/30 15 units now, trun drip off 1 hr after administering SQ insulin.
Pt was taking 20 units BID of 70/30 prior to surgery (32 units BID at home).
Will cont to follow and adjust insulin if needed. Discussed with patient, family and Nurse.
05/08 Encouraged pt to contact PCP for script to start CGM use at home post discharge/
Diabetes History
- -
Type of Diabetes: 2 requiring insulin
Pre-Admission Diabetes Regimen
05/13/24
03:33
Creatinine 1.4 H
Lab Results
Hemoglobin A1c 10.6 % (4.0-5.6) H 05/04/24 17:17
Insulin Pump Settings
IP Diabetes Regimen
05/12/24 05/12/24 05/12/24
09:02 11:15 13:11
Glucose
POC Glucose 127 H 102 H 134 H
05/12/24 05/12/24 05/12/24
15:25 17:09 19:41
Glucose
POC Glucose 151 H 135 H 180 H
05/12/24 05/12/24 05/12/24
21:45 22:43 23:35
Glucose
POC Glucose 152 H 105 H 88
05/13/24 05/13/24 05/13/24
00:43 01:41 03:33
Glucose 84
POC Glucose 111 H 107 H
05/13/24 05/13/24 05/13/24
03:35 04:55 07:21
Glucose
POC Glucose 93 102 H 100 H
Meal type: Breakfast
Patient Education
[2024-05-13] MEDS: LIDOCAINE 4% PATCH 1 PATCH TOPICAL (08:11)
[2024-05-13] MEDS: PACERONE 200 MG PO ×3 (08:11→21:33)
[2024-05-13] MEDS: PLAVIX 75 MG PO (08:12)
[2024-05-13] MEDS: MAGNESIUM OXIDE 500 MG PO ×2 (08:12→20:01)
[2024-05-13] MEDS: FARXIGA 10 MG PO (08:12)
[2024-05-13] MEDS: VITAMIN C 500 MG PO (08:12)
[2024-05-13] MEDS: FEOSOL 325 MG PO (08:12)
[2024-05-13] MEDS: NORVASC 2.5 MG PO ×2 (08:12→20:01)
[2024-05-13] MEDS: PROTONIX 40 MG PO (08:13)
[2024-05-13] MEDS: SENOKOT-S 1 TABLET PO ×2 (08:13→20:02)
[2024-05-13] MEDS: LOPRESSOR 12.5 MG PO ×2 (08:13→20:01)
[2024-05-13] MEDS: NEURONTIN 300 MG PO (08:13)
[2024-05-13] MEDS: CRESTOR 20 MG PO (08:13)
[2024-05-13] MEDS: LOW STRENGTH ASPIRIN 81 MG PO (08:13)
[2024-05-13] MEDS: BACTROBAN 2% OINTMENT 1 APPLIC NASAL ×2 (08:14→20:02)
[2024-05-13] MEDS: NOVOLIN R INSULIN INFUSION 100 IV (08:18)
--- NOTE | 2024-05-13 08:20 | W.PN.INTV ---
Today's Communication / Plan
Recommendations
Pain control
Up OOB as tolerated
Encourage incentive spirometer use
Cardiac rehab consult
Maintain SpO2 >90-94%
Maintain BG 140�180
Patient has been weaned off the insulin drip and will be downgraded to CVICU�telemetry status today. Once downgraded then we will sign off at that time. No additional recommendations otherwise; Park Naturalist/Pulmonary service will now sign off.
Please re-consult if there are any additional questions/concerns, or if patient's respiratory status deteriorates.
Assessment
-
Assessment: 58-year-old male non-smoker with a past medical history of DM type II, hypertension and hyperlipidemia who initially presented to [facility] with chest pain which had preceded for 2-3 days. Patient was initially
hypertensive in the ER to 209/109 with abnormal EKG with T wave inversions. Troponin was also positive. Heparin drip started. Echo reportedlty showed preserved LVEF at 55 to 60% with apical-anterior + apical abnormalities. Patient taken to the
[facility] showing multivessel disease and then transferred here to [facility] for surgical evaluation. While here, patient was maintained on heparin drip. Cardiothoracic surgery was following. A CTA head/neck was done on 05/06/2024 showing an
occluded right internal carotid artery. Vascular surgery discussed the case and no intervention was planned given it is unilateral disease and outpatient follow-up was recommended. Surgical intervention was discussed including its risks and
benefits, and on 05/11/2024 the patient underwent CABG x 4 and during the case there had to be a reexploration of the RA to OM distal anastomosis. Postoperation RODRÍGUEZ showed LVEF at 65% with no regional wall motion abnormalities and no significant
valvular heart disease. Patient given a total of 2 units PRBCs and 1 pack platelets during the case. Patient then transferred to the CVICU postoperatively and rougher helper/pulmonary service now consulted for additional management/recommendations.
Chronic conditions [employer]IDENT [employer]: HTN, hypercholesterolemia, DM type II and history of [place]
Impression:
#Multivessel CAD with NSTEMI s/p CABG x 4 (POD #2)
#Reexploration of RA to OM distal anastomosis (POD #2)
#Acute anemia due to above
#Acute thrombocytopenia due to above - plt now normalized
#Hypocalcemia - now resolved
#Hypertensive crisis now resolved
#DM type II
#Hypertension
#Hyperlipidemia
Plan:
Patient successfully extubated on 05/12/2024 overnight; patient currently on room air breathing comfortably and saturating 94%
prn nebulized bronchodilators - not currently bronchospastic
Encourage incentive spirometer 10x per hour for at least 4 hrs a day
Maintain MAP>65
Replete electrolytes with K>4, Mg>2
Currently on amiodarone -if he is discharged with this then he will need annual spirometry to trend FVC to assess for any developing restrictive lung defect
Chest tubes now have all been removed
Monitor hemoglobin
Monitor platelet count and coags
Transfuse blood products as needed to maintain Hb>7g/dL, plt>50k (given post-operative status)
Monitor blood sugar to maintain euglycemia with goal BG 140-180
Insulin drip now stopped; continue with ISS to maintain BG goal as above
Aspiration precautions
DVT prophylaxis
Early nutrition
Early mobilization
Patient has been weaned off the insulin drip and will be downgraded to CVICU�telemetry status today. Once downgraded then we will sign off at that time. No additional recommendations otherwise; Park Naturalist/Pulmonary service will now sign off.
Thank you for allowing us to be involved in the care of this patient. Please reconsult if there are any additional questions/concerns, or if patient's respiratory status deteriorates.
Total time spent today was 56 minutes for this encounter. Time includes reviewing laboratory test/imaging results, reviewing pertinent medical records, obtaining and reviewing medical history, performing an appropriate exam, ordering medications,
tests and procedures. Time also includes documentation of this encounter, coordinating patient care and communicating with other healthcare professionals. Total time does not include separately billed tests performed on this date of service.
Subjective Dataa
Subjective Data
Date of Service:
Date of Service: May 13, 2024
Chief Complaint: Park Naturalist Follow Up
Subjective:
Patient was seen and evaluated today at bedside. Currently heart rate 91, BP 112/97 and saturating 94% on room air. Insulin drip is now off. R�IJ cordis in place. He is having urinary retention of >600 cc and is being straight cathed. Patient's
son, Jerry, at bedside and all questions were answered. Patient currently denies chest pain, HURTADO, SOB, abdominal pain, fevers or chills.
Review of Systems
General: Other (Negative unless mentioned above)
Objective Data
Data Reviewed
Vital Signs / I&O / Oxygen:
Vital Signs
Temp Pulse Resp BP Pulse Ox
98.3 F 87 18 123/74 97
05/13/24 08:09 05/13/24 08:09 05/13/24 08:09 05/13/24 08:09 05/13/24 08:09
Intake and Output
05/12/24 05/13/24 05/14/24
06:59 06:59 06:59
Intake Total 744.2 / 818.2 1593.9 / 1606.3 24.8 / 24.8
Output Total 1324 / 1364 960 / 1040 150 / 150
Balance -579.8 / -545.8 633.9 / 566.3 -125.2 / -125.2
SaO2 [CPAP] 100
SaO2 [SIMV] 100
SaO2 97
Nasal Cannula flow liters per 2
minute
Physical Exam
General: Respiratory Distress (negative), Comfortable, Chills (negative) and Sweats (negative)
HEENT: Normocephalic, Anicteric and Other (R-IJ cordis in place)
Cardiovascular: S1-S2 and Peripheral Edema (negative)
Respiratory: Wheeze (negative), Crackles (Bilateral), Rhonchi (negative) and Non-Labored Respirations
GI: Soft, Non Distended, Non Tender and Normal Bowel Sounds
Neurology: Awake, Alert and Tremors (negative)
Skin: Warm, Dry, Cyanosis (negative) and Jaundice (negative)
Labs/Micro/Reports
Lab Data
05/13/24 03:33
--- NOTE | 2024-05-13 09:00 | PTCARENOTE ---
Chest tubes x 4 removed by Carlo Morrow with [employer] TECHNICIAN assist and prep. Sutures tied purse string style.
--- NOTE | 2024-05-13 09:15 | PTCARENOTE ---
Bae catheter removed. Urinal provided. Assisted oob to chair with assist of 2 RN's.
[2024-05-13] MEDS: LASIX 20 MG IV (10:02)
[2024-05-13] MEDS: KCL 20 MEQ PO (10:02)
[2024-05-13 10:04] LABS: Glucose - Point of Care 96 mg/dl (70-99)
[2024-05-13] MEDS: NOVOLOG MIX 70/30 FLEXPEN 15 UNITS SC (10:17)
[2024-05-13 11:10] LABS: Glucose - Point of Care 101 mg/dl (70-99)
--- NOTE | 2024-05-13 12:00 | PTCARENOTE ---
Patient is attempting to void sitting and standing and unable to do so/prolonged period of time allowed: bladder scanned for 672ml in bladder: patient straight cath for 700ml clear aubrey urine and patient tolerated well. Room air. NSR. See flow
record for remaining assessments.Patient and family instructed of bladder scan protocol and side effects of urinary retention.
[2024-05-13] MEDS: NEURONTIN PO ×2 (15:53→21:34)
--- NOTE | 2024-05-13 15:59 | CM ---
Reviewed chart. Tried to see Mr. Zaragoza to review discharge plans. He was asleep. Prior to admission he resides with his spouse, two sons and [id number] in a one story home without any steps to enter. Prior to admission he was independent with
ambulation and adls. He does not have any DME in the home. Medical work-up in progress. The discharge plan is to return home with his family and home visit by the Transitional Care Nurse when medically stable.
[2024-05-13] MEDS: NSS IV (18:25)
[2024-05-13] MEDS: NOVOLOG MIX 70/30 FLEXPEN 20 UNITS SC (18:28)
--- NOTE | 2024-05-13 18:30 | PTCARENOTE ---
Stood in bathroom and was able to void clear yellow urine without difficulty.
[2024-05-13 18:33] LABS: Glucose - Point of Care 139 mg/dl (70-99)
[2024-05-13] MEDS: FLEXERIL 5 MG PO (18:37)
--- NOTE | 2024-05-13 21:00 | PTCARENOTE ---
Assumed care of pt from dayshift RN. Walking rounds completed. Pt AAOx3. Following commands appropriately. Pt non-Dominican speaking. Language line and family at the bedside to help translate. Pt is SR on the tele monitor. HR 80-90s. B/L pedal and
hand edema present. B/L DP pulses weak on palpation. Left ulnar pulse weak on palpation. Right radial pulse palpable. BP stable. Pt on RA. POX 92%. CT dressing changed. Sutures intact. Abdomen soft/nontender. +BS. Pt voiding in the bathroom w/o
issue. All surgical sites stable. Right IJ cordis and Right PIV C/D/I. Pt ambulated in braga w/ 2 person assist. Pt laying in bed at this time. See worklist for full nursing assessment and interventions. Call boyle within reach.
[2024-05-13 21:28] LABS: Blood Urea Nitrogen 31 mg/dl (9-20); Calcium 8.2 mg/dl (8.4-10.2); Carbon Dioxide 27 mmol/L (22-30); Chloride 102 mmol/L (98-107); Estimated Creatinine Clearance 67 ml/min; Glucose 155 mg/dl (70-99); Potassium 4.5 mmol/L (3.5-5.1); Sodium 137 mmol/L (135-145); eGFR > 60.00
[2024-05-13] MEDS: NSS 500 IV (21:33)
[2024-05-14] VITALS (13 sets, daily range): BP systolic 116–142; BP diastolic 63–80; PULSE 83–91; O2SAT 97; BMI 29.8
[2024-05-14 00:18] LABS: Glucose - Point of Care 188 mg/dl (70-99)
--- NOTE | 2024-05-14 00:27 | PTCARENOTE ---
No acute changes in assessment. Pt is SR on the tele monitor. HR 80-90s. BP stable. Pt on RA. POX 95%. All surgical sites stable. Pt repositioned in bed. No c/o pain at this time. Call boyle within reach. Family at the bedside.
--- NOTE | 2024-05-14 01:23 | PTCARENOTE ---
Pt up w/ assist x2 to void in the bathroom. While standing in the bathroom pt became unsteady from left leg weakness. CTPA and help called to room. Pt sat down in chair. No dizziness. BP 137/71. POX 97%. HR 90.
[2024-05-14 03:47] LABS: Hematocrit 22.5 % (39.0-52.0); Hemoglobin 7.6 g/dL (13.0-18.0); Mean Corp Hgb Conc. 33.8 g/dL (33.0-37.0); Mean Corpuscular Hgb 30.5 pg (27.0-31.0); Mean Corpuscular Volume 90.4 fL (80.0-94.0); Mean Platelet Volume 10.6 fL (7.4-10.4); Platelet Count 185 10^3/uL (130-400); Red Blood Cell Count 2.49 10^6/uL (4.70-6.10); Red Cell Dist. Width 12.9 % (11.5-14.5)
[2024-05-14 04:08] LABS: Blood Urea Nitrogen 30 mg/dl (9-20); Calcium 8.2 mg/dl (8.4-10.2); Carbon Dioxide 27 mmol/L (22-30); Chloride 101 mmol/L (98-107); Estimated Creatinine Clearance 73 ml/min; Glucose 142 mg/dl (70-99); Magnesium 2.4 mg/dl (1.6-2.3); Potassium 4.4 mmol/L (3.5-5.1); Sodium 137 mmol/L (135-145); eGFR > 60.00
[2024-05-14] MEDS: FLEXERIL 5 MG PO (04:14)
--- NOTE | 2024-05-14 04:53 | W.PN.CT ---
Today's Communication / Plan
-
-pod #3
-no significant issues overnight
-felt knee weakness while standing in the bathroom, needed help to get back, no dizziness. Will ask PT/OT to eval
-Cr improved -1.1 today (1.4 peak on 05/13, 1.2 on 05/12 and 1.0 preop)- follow
-h/h 7.6/22.5- follow
-wt is up 9 lbs. Consider diuresis. Diuresed well with 20 iv Lasix on 05/13 (UO 1400)
-weaned off O2 - pOx 98 on RA
-current meds (ASA, Plavix, Crestor, Norvasc 2.5 bid for radial graft, Lopressor, Amio, Feosol, Protonix)
-encourage IS, OOB
Assessment / Plan
-
Assessment:
-S/P Median sternotomy/CABG x 4 (ORLY to LAD, GSV to D2, RA to OM, GSV to PDA)/Endoscopic harvest/prep of L RA/ Redo of RA proximal - on-pump/arrested re-exploration of RA to OM distal anastomosis, by Dr. Zaragoza, 05/11/24, pod#3
-Multivessel CAD
-NSTEMI
-[place]
-100% occluded NICOLE, presumed chronic (US 05/05/24, Head/neck CTA 05/06/24 with Widely patent left carotid arterial system and proximal intracranial arterial circulation bilaterally)
-No valvular disease, per echo 05/04/24 @ [facility]
-LVEF 50-60%; 60-65% per intraop RODRÍGUEZ
-HTN (presented to [facility] with hypertensive urgency -BP 209/109)
-HLD
-T2DM (insulin dependent, A1C 10.6)
-Hx Shingles
-Carotid artery disease (100% occluded NICOLE per u/s 05/05/24)
-S/P skin grafts
-GERD
-Sore throat/cough- afebrile, nl wbc. Negative for Covid and Influenza A&B
-Acute postop blood loss/Anemia (transfused 3u prbc's intraop and 1u prbc postop)
-Acute postop coagulopathy (transfused 2u ffps and 2 {5 pk} plts)
-Acute postop atelectasis
-Acute postop hypovolemia with subsequent hypervolemia
-MARISOL- improved
Chest CT 05/05/24:
1. No definitive acute abnormalities within the chest.
2. Normal caliber thoracic aorta with minimal foci of calcified plaque within the arch.
3. Moderate calcified plaque within the left coronary artery.
4. Small nodular area of consolidation within the posterior right lower lobe, likely atelectasis.
Carotid US 05/05/24:
1. Right carotid: Occluded right internal carotid artery. Likely chronic, but cannot ascertain definitively chronicity. Clinical correlation is advised. Recommend confirmatory enhanced imaging study.
2. Left carotid: No significant plaque or stenosis left internal carotid artery.
3. Antegrade flow bilateral vertebral arteries.
Head/neck CTA 05/06/24:
1. No blood flow identified in the right internal carotid artery suggesting proximal complete occlusion.
2. Widely patent left carotid arterial system and proximal intracranial arterial circulation bilaterally.
3. No findings to suggest bilateral vertebral artery or left internal carotid artery dissection bilaterally.
4. Mildly dominant left vertebral artery.
Palmar arch US 05/06/24:
findings suggestive of complete palmar arch
Discussed patient care with: Nursing and Care Team
Subjective
Procedure
S/P Median sternotomy/CABG x 4 (ORLY to LAD, GSV to D2, RA to OM, GSV to PDA)/Endoscopic harvest/prep of L RA/ Redo of RA proximal - on-pump/arrested re-exploration of RA to OM distal anastomosis, by Dr. Zaragoza, 05/11/24
-
Date of Service: May 14, 2024
Objective Data
-
Lab Results
05/14/24 03:18
05/14/24 03:18
PT 16.7 Sec (11.4-14.6) H 05/12/24 02:56
INR 1.32 05/12/24 02:56
APTT 36.7 Sec (23.4-35.0) H 05/11/24 18:15
Vital Signs
Vital Signs
Temp Pulse Resp BP Pulse Ox
98.1 F 83 16 142/68 98
05/14/24 03:13 05/14/24 03:13 05/14/24 03:13 05/14/24 03:13 05/14/24 03:13
CT Intake/Output/Weight
05/13/24 05/13/24 05/14/24
06:59 18:59 06:59
Intake Total 769.6 / 1606.3 1186.2 / 1236.2 50 / 1236.2
Output Total 395 / 1040 1590 / 1590
Balance 374.6 / 566.3 -403.8 / -353.8 50 / -353.8
SaO2: 98
Physical Exam
-
General: Awake and AOx3
Cardiovascular: Regular rate & rhythm, No Murmurs and Rub
Respiratory: Decreased Breath Sounds
Sternum: Stable
Incision: Clean, Dry and Intact
Abdomen: soft, nontender, nondistended, bowel sounds, + flatus, no BM
Extremities: Other (trace edema b/l, DPs by Doppler)
Data Reviewed
-
Lab Results: Results Reviewed
Medications: Active Meds Reviewed
Chest X-Ray: Report Reviewed and Image Reviewed
ECG: Report Reviewed and Image Reviewed
--- NOTE | 2024-05-14 05:00 | PTCARENOTE ---
Pt remains SR on the tele monitor. HR 80-90s. BP stable. Pt on RA. POX 98%. All surgical sites stable. Pt assist x2 out of bed/chair to void in the bathroom. Pt repositioned several times for comfort. See MAR for medication administration. Call boyle
within reach.
[2024-05-14] MEDS: TYLENOL 1000 MG PO ×3 (05:23→22:32)
--- NOTE | 2024-05-14 07:41 | W.PN.CD ---
Today's Communication / Plan
-
post op pain challenging to assess. chest wall pain consistent with expected post op surgery but he also just says he hurts all over
- repeat ECG
Post op anemia
- hb 7.6
- slow trend down since 05/12 8.9-8.0-7.6
- consider PRBC
Impression / Plan
-
IMPRESSION/PLAN: 58M with HTN, HLD, and NIDDM presented to [facility] with chest pain. An abnormal troponin led to [facility] which demonstrated MVCAD. He was subsequently transferred for CABG.
#Multivessel CAD/NSTEMI
- CABG x 4 (ORLY to LAD, GSV to D2, RA to OM, GSV to PDA)/Endoscopic harvest/prep of L RA/ Redo of RA proximal - on-pump/arrested re-exploration of RA to OM distal anastomosis, by Dr. Zaragoza, 05/11/24,
- post op pain. challenging to assess. post op chest discomfort but also just hurts all over. Pain control per CT surgery . repeat ECG
Back pain. low back burning while inbe d but resolved
Post op anemia
- hb 7.6
- slow trend down since 05/12 8.9-8.0-7.6
- consider PRBC
#HTN emergency
-Acute, resolved.
-We will address blood pressure post op.
#Carotid artery disease
-Chronic.
-NICOLE METHODS AND PROCEDURES ANALYST.
#HLD.
-High intensity statin with goal LDL <55
#IDDM
-Chronic, uncontrolled.
-HgbA1c >10%.
-Diabetic IT OPERATIONS ANALYST consulted
-post op managemnt
Subjective/Interval History:
Currently undergoing surgery.
DATA:
Transthoracic echocardiogram, 05/04/2024 ([facility]):
1. Left ventricular systolic function is low normal
2. Left ventricular ejection fraction is estimated 55-60%
3. Apical lateral segment, apical anterior segment, and apex are abnormal
4. Grade 1 DD
5. Borderline LVH
6. TDS
7. Mildly dilated LA
8. Mild mitral valve regurgitation
Cardiac catheterization, 05/04/2024 ([facility]):
1. PDA is occluded with collaterals
2. Significant distal RCA lesion
3. Significant mid LAD and proximal and mid junction D2 lesions
4. Significant OM 4 proximal and moderate mid lesions
5. OM 3 is an atretic vessel with subtotal stenosis
6. Mild disease and multiple other areas
Physical Exam
Vital Signs/Labs
Vital Signs
Temp Pulse Resp BP Pulse Ox
98.1 F 90 16 142/68 98
05/14/24 03:13 05/14/24 06:15 05/14/24 03:13 05/14/24 03:13 05/14/24 04:55
05/13/24 05/14/24 05/15/24
06:59 06:59 06:59
Actual Weight 88.8 kg
05/14/24 03:18
05/14/24 03:18
PT 16.7 Sec (11.4-14.6) H 05/12/24 02:56
INR 1.32 05/12/24 02:56
APTT 36.7 Sec (23.4-35.0) H 05/11/24 18:15
Magnesium 2.4 mg/dl (1.6-2.3) H 05/14/24 03:18
Triglycerides 152 mg/dl (10-149) H 05/04/24 17:17
LDL Cholesterol, Calc 32 mg/dl 05/04/24 17:17
VLDL Cholesterol, Calc 30 mg/dl (0-30) 05/04/24 17:17
HDL Cholesterol 105 mg/dl 05/04/24 17:17
Physical Exam
Constitutional: No acute distress
Cardiovascular: Rhythm & rate is regular and Other (no rub or murmur)
Respiratory: Wheeze Absent and Rhonchi Absent
GI: Soft and Non tender
Neuro/Psych: Alert and Oriented
Other: Other (bandage on back. he has a linear abrasion)
Data Reviewed
-
Date of Service: May 14, 2024
Medical Decision Making: Reviewed Test Results
EKG: Report Reviewed by me
--- NOTE | 2024-05-14 07:46 | PN.DE.MGMTRT ---
Insulin Management
- -
05/14/2024: Diabetes Management f/u:
Patient transferred from [facility], presented with chest pain, NSTEMI, found to have MVD CAD.
PMH: T2DM, HTN, HLD. Prior to admission was taking 70/30 insulin 32 units BID. States he has a working glucose monitor at home.
A1C 10.6%, Cr 0.9, eGFR > 60.
Pt awake, alert, sitting up in chair, family at bedside. POD #3 s/p CABG, doing well.
Transitioned off glycemic protocol yesterday. Blood sugar stable, premeal 96 to 139.
Will make no changes to current regimen: 70/30 20 units BID (was taking 32 units BID at home) and Farxiga 10mg daily.
Will cont to follow and adjust insulin if needed. Discussed with patient, family and Nurse.
Switch to Jardiance at discharge since that is what's covered by pt's insurance.
05/08 Encouraged pt to contact PCP for script to start CGM use at home post discharge
Diabetes History
- -
Type of Diabetes: 2 requiring insulin
Pre-Admission Diabetes Regimen
05/13/24 05/14/24
20:10 03:18
Creatinine 1.2 1.1
Lab Results
Hemoglobin A1c 10.6 % (4.0-5.6) H 05/04/24 17:17
Insulin Pump Settings
IP Diabetes Regimen
05/13/24 05/13/24 05/13/24
09:53 11:08 18:27
Glucose
POC Glucose 96 101 H 139 H
05/13/24 05/14/24 05/14/24
20:10 00:16 03:18
Glucose 155 H 142 H
POC Glucose 188 H
Meal type: Breakfast
Amount consumed: 50%
Patient Education
[2024-05-14] MEDS: FARXIGA 10 MG PO (09:16)
[2024-05-14] MEDS: CRESTOR 20 MG PO (09:16)
[2024-05-14] MEDS: LIDOCAINE 4% PATCH 1 PATCH TOPICAL (09:16)
[2024-05-14] MEDS: NEURONTIN 300 MG PO ×3 (09:16→22:31)
[2024-05-14] MEDS: MAGNESIUM OXIDE 500 MG PO ×2 (09:16→20:53)
[2024-05-14] MEDS: LOPRESSOR 12.5 MG PO ×2 (09:17→20:51)
[2024-05-14] MEDS: NORVASC 2.5 MG PO ×2 (09:17→20:53)
[2024-05-14] MEDS: FEOSOL 325 MG PO (09:17)
[2024-05-14] MEDS: PLAVIX 75 MG PO (09:17)
[2024-05-14] MEDS: SENOKOT-S 1 TABLET PO ×2 (09:17→20:53)
[2024-05-14] MEDS: LOW STRENGTH ASPIRIN 81 MG PO (09:17)
[2024-05-14] MEDS: PACERONE 200 MG PO ×3 (09:17→22:31)
[2024-05-14] MEDS: VITAMIN C 500 MG PO (09:17)
[2024-05-14] MEDS: PROTONIX 40 MG PO (09:17)
[2024-05-14] MEDS: NOVOLOG MIX 70/30 FLEXPEN 20 UNITS SC ×2 (09:26→17:18)
[2024-05-14] MEDS: BACTROBAN 2% OINTMENT 1 APPLIC NASAL ×2 (09:27→20:51)
--- NOTE | 2024-05-14 10:23 | PTCARENOTE ---
assumed care of pt from previous shift RN, sinus rhythm on tele, VSS, + peripheral pulses, trace edema to bilateral lower extremities. Lungs diminished, pox 98% on RA, coughing and deep breathing encouraged. +bs, tolerating po intake, voids
spontaneously. Sternal aquacell dressing intact, CT sutures MANUEL, left radial sites MANUEL. Cordis to be removed, PIV flushes easily. Plan of care reviewed w the pt and his family. Questions encouraged.
--- NOTE | 2024-05-14 11:49 | WOUNDNOTE ---
[facility] RN NOTE: Reviewed chart and spoke to RNAdwoa. RN suspects DTI of left and right buttock and abrasion or scarring of spine. Patient is s/p CABG x4 o 12/. Patients family alerted nuring staff when they noted wound on buttocks and spine last
night. Brothers both present during assessment and helped to translate for patient. Patient found sitting in chair with air cushion. Silicone border foam was appropriately applied to the left buttock. Patient has DTI appearing wound of left buttock
and a small linear DTI appearing wound of right buttock. The skin on both buttocks is firm and non-blanchable. Patient denies pain when the wound is palpated. The spine appears to be a superficial linear abrasion that is 95% scabbed. Two open areas
of spine appear superficial with pink wound bed, no drainage noted. Spoke to patient and brother and explained that buttock wound is likely an evolving DTI which may worsen or open. Both stated understanding. Recommended keeping area covered and
changing position frequently to decrease pressure in area. Patient stated he is able to change position frequently in bed and chair and ambulates to bathroom often. Patient and brother stated understanding of instructions. He is on a Centrella Max
bed and reports good appetite. Update given to MOLDING SUPERVISORKait. Will update orders and discharge instructions. Will continue to follow during in patient stay.
--- NOTE | 2024-05-14 12:50 | PTCARENOTE ---
pt c/o penile pain. Dr. Zaragoza at bedside and evaluated pt. Urology consulted.
--- NOTE | 2024-05-14 13:09 | PTCARENOTE ---
cordis removed without incident.
[2024-05-14 13:14] LABS: Glucose - Point of Care 246 mg/dl (70-99)
--- NOTE | 2024-05-14 13:34 | CON.MD ---
Consultation - Medical
-
see dictated note
uncirc male- does not speak nepali
had cabg- fischer
now with painful paraphimosis
foreskin manually reduced back into normal position
call with any further questions
--- NOTE | 2024-05-14 13:46 | CM ---
Reviewed chart. Met with Mr. Zaragoza and his family to review discharge plans. He states he is feeling better and maybe able to go home soon. He states prior to admission he resides with his spouse, son and daughter in law in a two story home with
one step to enter. He states he has to go up a full flight of steps to get to bedroom/full bathroom. He states he does not have a bathroom on the first floor. He states his spouse works outside the home at [employer]. His youngest son
graduates from [employer] next month and then he will be home. his one family member is a CCU nurse and she will be available to assist in his care if needed. He has a prescription plan with [employer] and uses [facility]. Telephone call to "Maureen"[employer]rayan,([phone]) to check on co-pay for Farxiga and Jardiance. Farxiga is not in formulary and not covered. Jardiance is covered and his co-pay for one month will be $35.00 a month and for 90 day mail order if would be $85.00. He has
commercial insurance so he can use the $10.00 a month coupon. Placed the $10.00 coupon in his red discharge folder. We also reviewed a home visit by the Transitional Care Nurse. He is agreeable to a home visit. Medical work-up in progress. The
discharge plan is to return home with his spouse, son and [id number] and a home visit by the Transitional Care Nurse when medically stable.
[2024-05-14] MEDS: LASIX 40 MG IV (16:11)
--- NOTE | 2024-05-14 21:00 | PTCARENOTE ---
Patient received OOB in chair. Patient A+A+Ox3. No neurological deficits noted. Patient's family member at bedside. No c/o pain or discomfort. Room air. SpO2 96%. Sinus Rhythm. Heart rate 80's. No c/o chest pain, pressure or discomfort.
Abdomen soft, round, nontender. Normoactive bowel sounds. No BM. No c/o nausea. No vomiting. Voiding without difficulty. No c/o penile pain or discomfort. Foreskin covering penis/penis tip. Slight ecchymosis to shaft of penis. Left arm
radial graft site - Incisions open to air - Intact - Surgical adhesive - Positive Ulnar pulse - Edema to left hand/forearm - No c/o pain, discomfort, numbness or tingling. Sternal Dressing intact. Chest tube sutures intact - Open to air. Right
groin puncture intact. Right knee/lower extremity incisions intact - Surgical adhesive - Open to air. Positive, palpable pulses. Generalized edema. Two foam dressings to mid-back region intact. Foam dressing to left buttock intact. Assessment
as documented.
[2024-05-14 22:37] LABS: Glucose - Point of Care 226 mg/dl (70-99)
[2024-05-15] VITALS (9 sets, daily range): BP systolic 112–144; BP diastolic 65–78; PULSE 80; O2SAT 98; BMI 29.4
--- NOTE | 2024-05-15 00:30 | PTCARENOTE ---
Patient sleeping without difficulty. Family member sleeping in room. Assessment/Interventions as documented.
--- NOTE | 2024-05-15 04:04 | W.PN.CT ---
Today's Communication / Plan
-
-pod #4
-no significant issues overnight. Pt is smiling, says that he feels better. Walked in hallways earlier, denies further knee weakness ([id number] is at bedside translating)
-s/p reduction of paraphimosis 05/14, voiding - appreciate Urology input
-appreciate wound care input re: DTI
-appears volume overloaded, wt is up 9 lbs. Consider bid Lasix
-labs pending
-follow Cr (1.1 on 05/14, 1.4 peak on 05/13, 1.2 on 05/12 and 1.0 preop)- follow
-h/h pending today (7.6/22.5 on 05/14)- follow
-weaned off O2 - pOx 98 on RA
-follow 2v-CXR
-current meds (ASA, Plavix, Crestor, Norvasc 2.5 bid for radial graft, Farxiga, Lopressor, Amio, Feosol, Protonix)
-continue PT/OT
-encourage IS, OOB
-appreciate everyone's input
Assessment / Plan
-
Assessment:
-S/P Median sternotomy/CABG x 4 (ORLY to LAD, GSV to D2, RA to OM, GSV to PDA)/Endoscopic harvest/prep of L RA/ Redo of RA proximal - on-pump/arrested re-exploration of RA to OM distal anastomosis, by Dr. Zaragoza, 05/11/24, pod#4
-Multivessel CAD
-NSTEMI
-[place]
-100% occluded NICOLE, presumed chronic (US 05/05/24, Head/neck CTA 05/06/24 with Widely patent left carotid arterial system and proximal intracranial arterial circulation bilaterally)
-No valvular disease, per echo 05/04/24 @ [facility]
-LVEF 50-60%; 60-65% per intraop RODRÍGUEZ
-HTN (presented to [facility] with hypertensive urgency -BP 209/109)
-HLD
-T2DM (insulin dependent, A1C 10.6)
-Hx Shingles
-Carotid artery disease (100% occluded NICOLE per u/s 05/05/24)
-S/P skin grafts
-GERD
-Sore throat/cough- afebrile, nl wbc. Negative for Covid and Influenza A&B
-Acute postop blood loss/Anemia (transfused 3u prbc's intraop and 1u prbc postop)
-Acute postop coagulopathy (transfused 2u ffps and 2 {5 pk} plts)
-Acute postop atelectasis
-Acute postop hypovolemia with subsequent hypervolemia
-MARISOL- improved
-Acute postop paraphimosis -foreskin was manually reduced back into normal position by Urology 05/[address] 05/05/24:
1. No definitive acute abnormalities within the chest.
2. Normal caliber thoracic aorta with minimal foci of calcified plaque within the arch.
3. Moderate calcified plaque within the left coronary artery.
4. Small nodular area of consolidation within the posterior right lower lobe, likely atelectasis.
Carotid US 05/05/24:
1. Right carotid: Occluded right internal carotid artery. Likely chronic, but cannot ascertain definitively chronicity. Clinical correlation is advised. Recommend confirmatory enhanced imaging study.
2. Left carotid: No significant plaque or stenosis left internal carotid artery.
3. Antegrade flow bilateral vertebral arteries.
Head/neck CTA 05/06/24:
1. No blood flow identified in the right internal carotid artery suggesting proximal complete occlusion.
2. Widely patent left carotid arterial system and proximal intracranial arterial circulation bilaterally.
3. No findings to suggest bilateral vertebral artery or left internal carotid artery dissection bilaterally.
4. Mildly dominant left vertebral artery.
Palmar arch US 05/06/24:
findings suggestive of complete palmar arch
Discussed patient care with: Nursing and Care Team
Subjective
Procedure
S/P Median sternotomy/CABG x 4 (ORLY to LAD, GSV to D2, RA to OM, GSV to PDA)/Endoscopic harvest/prep of L RA/ Redo of RA proximal - on-pump/arrested re-exploration of RA to OM distal anastomosis, by Dr. Zaragoza, 05/11/24
-
Date of Service: May 15, 2024
Objective Data
-
PT 16.7 Sec (11.4-14.6) H 05/12/24 02:56
INR 1.32 05/12/24 02:56
APTT 36.7 Sec (23.4-35.0) H 05/11/24 18:15
Vital Signs
Vital Signs
Temp Pulse Resp BP Pulse Ox
98.7 F 82 16 125/68 98
05/14/24 22:30 05/14/24 22:31 05/14/24 22:30 05/14/24 22:31 05/14/24 22:30
CT Intake/Output/Weight
05/14/24 05/14/24 05/15/24
06:59 18:59 06:59
Intake Total 50 / 1236.2 120 / 360 240 / 360
Output Total 400 / 800 400 / 800
Balance 50 / -353.8 -280 / -440 -160 / -440
SaO2: 98
Physical Exam
-
General: Awake and AOx3
Cardiovascular: Regular rate & rhythm, No Murmurs and Rub
Respiratory: Decreased Breath Sounds, rales at bases, L>R. No wheeze
Sternum: Stable
Incision: Clean, Dry and Intact
Abdomen: soft, nontender, nondistended, bowel sounds, + flatus, no BM
Extremities: Other (1-2+ edema b/l, DPs by Doppler)
Data Reviewed
-
Lab Results: Results Reviewed
Medications: Active Meds Reviewed
Chest X-Ray: Report Reviewed and Image Reviewed
ECG: Report Reviewed and Image Reviewed
[2024-05-15] MEDS: TYLENOL 1000 MG PO ×2 (04:53→14:00)
--- NOTE | 2024-05-15 05:30 | PTCARENOTE ---
Patient A+A+Ox3. No neurological deficits noted. Patient's family member at bedside. AM lab work collected and sent. Standing scale weight 87.8 kg. Patient back to sleep. Assessment/Interventions as documented.
[2024-05-15 06:18] LABS: Hematocrit 28.1 % (39.0-52.0); Hemoglobin 9.2 g/dL (13.0-18.0); Mean Corp Hgb Conc. 32.9 g/dL (33.0-37.0); Mean Corpuscular Hgb 30.5 pg (27.0-31.0); Mean Corpuscular Volume 92.7 fL (80.0-94.0); Mean Platelet Volume 10.5 fL (7.4-10.4); Platelet Count 239 10^3/uL (130-400); Red Blood Cell Count 3.02 10^6/uL (4.70-6.10); Red Cell Dist. Width 12.8 % (11.5-14.5); White Blood Cell Count 9.2 10^3/uL (4.8-10.8)
[2024-05-15 07:36] LABS: % Basophils 0.3 % (0-2); % Immature Granulocytes 1.8 % (0-0.5); % Lymphocytes 18.3 % (20.5-51.1); % Neutrophils 69.6 % (42.2-75.2); Absolute Eosinophils 0.2 10^3/uL (0-0.7); Absolute Immature Granulocytes 0.1 10^3/uL (0-0.05); Absolute Lymphocytes 1.4 10^3/uL (1.2-3.4); Absolute Monocytes 0.5 10^3/uL (0.1-0.6); Absolute Neutrophils 5.4 10^3/uL (1.4-6.5); Hematocrit 22.3 % (39.0-52.0); Hemoglobin 7.6 g/dL (13.0-18.0); Mean Corp Hgb Conc. 34.1 g/dL (33.0-37.0); Mean Corpuscular Hgb 31.1 pg (27.0-31.0); Mean Corpuscular Volume 91.4 fL (80.0-94.0); Mean Platelet Volume 10.2 fL (7.4-10.4); Nucleated Red Blood Cells % 0.4 % (-); Platelet Count 201 10^3/uL (130-400); Red Blood Cell Count 2.44 10^6/uL (4.70-6.10); Red Cell Dist. Width 12.7 % (11.5-14.5); White Blood Cell Count 7.7 10^3/uL (4.8-10.8)
--- NOTE | 2024-05-15 07:44 | PN.DE.MGMTRT ---
Insulin Management
- -
05/15/2024: Diabetes Management f/u:
Patient transferred from [facility], presented with chest pain, NSTEMI, found to have MVD CAD.
PMH: T2DM, HTN, HLD. Prior to admission was taking 70/30 insulin 32 units BID. States he has a working glucose monitor at home.
A1C 10.6%, Cr 0.9, eGFR > 60.
Pt awake, alert, sitting up in chair, family at bedside. POD #4 s/p CABG, doing well.
Transitioned off glycemic protocol 05/13. premeal blood sugar starting to trend, was 188 to 246 yesterday.
Will increase 70/30 dose to 25 units BID (was taking 32 units BID at home) and Farxiga 10mg daily.
Will cont to follow and adjust insulin if needed. Discussed with patient, family and Nurse.
Switch to Jardiance at discharge since that is what's covered by pt's insurance.
05/08 Encouraged pt to contact PCP for script to start CGM use at home post discharge
Diabetes History
- -
Type of Diabetes: 2 requiring insulin
Pre-Admission Diabetes Regimen
05/15/24
05:49
Creatinine Cancelled
Lab Results
Hemoglobin A1c 10.6 % (4.0-5.6) H 05/04/24 17:17
Insulin Pump Settings
IP Diabetes Regimen
05/14/24 05/14/24 05/15/24
13:13 22:35 05:49
Glucose Cancelled
POC Glucose 246 H 226 H
Meal type: Dinner
Meal type: Breakfast
Amount consumed: 75%
Patient Education
[2024-05-15 07:59] LABS: Blood Urea Nitrogen 28 mg/dl (9-20); Calcium 8.3 mg/dl (8.4-10.2); Carbon Dioxide 28 mmol/L (22-30); Chloride 103 mmol/L (98-107); Estimated Creatinine Clearance 73 ml/min; Glucose 144 mg/dl (70-99); Magnesium 2.5 mg/dl (1.6-2.3); Potassium 4.3 mmol/L (3.5-5.1); Sodium 138 mmol/L (135-145); eGFR > 60.00
[2024-05-15] MEDS: FEOSOL 325 MG PO (09:07)
[2024-05-15] MEDS: PROTONIX 40 MG PO (09:07)
[2024-05-15] MEDS: NEURONTIN 300 MG PO (09:07)
[2024-05-15] MEDS: SENOKOT-S 1 TABLET PO (09:07)
[2024-05-15] MEDS: MAGNESIUM OXIDE 500 MG PO (09:07)
[2024-05-15] MEDS: CRESTOR 20 MG PO (09:07)
[2024-05-15] MEDS: PACERONE 200 MG PO ×2 (09:07→15:54)
[2024-05-15] MEDS: DULCOLAX 10 MG PO (09:07)
[2024-05-15] MEDS: FARXIGA 10 MG PO (09:07)
[2024-05-15] MEDS: LOPRESSOR 12.5 MG PO (09:07)
[2024-05-15] MEDS: LOW STRENGTH ASPIRIN 81 MG PO (09:08)
[2024-05-15] MEDS: NOVOLOG MIX 70/30 FLEXPEN 25 UNITS SC (09:08)
[2024-05-15] MEDS: NORVASC 2.5 MG PO (09:08)
[2024-05-15] MEDS: VITAMIN C 500 MG PO (09:08)
[2024-05-15] MEDS: PLAVIX 75 MG PO (09:08)
[2024-05-15] MEDS: LIDOCAINE 4% PATCH TOPICAL (09:08)
[2024-05-15] MEDS: BACTROBAN 2% OINTMENT 1 APPLIC NASAL (09:09)
[2024-05-15] MEDS: NOVOLOG MIX 70/30 FLEXPEN SC (09:28)
--- NOTE | 2024-05-15 09:34 | PTCARENOTE ---
assumed care of pt from previous shift RN, sinus rhythm on tele, VSS, + peripheral pulses, trace edema to bilateral lower extremities. Lungs diminished, pox 98% on RA, coughing and deep breathing encouraged. +bs, tolerating po intake, voids
spontaneously. Sternal aquacell dressing intact, CT sutures MANUEL, left radial sites MANUEL. PIV flushes easily. Plan of care reviewed w the pt and his family. Questions encouraged.
--- NOTE | 2024-05-15 12:15 | PTCARENOTE ---
sinus rhythm maintained on tele, VSS, ambulating in hallway w family, tolerated working w PT. Pain is well controlled.
[2024-05-15] MEDS: NSS IV (12:53)
--- NOTE | 2024-05-15 13:20 | W.DCSUMMARY ---
Discharge Summary
Discharge Data
Date of Admission: 05/04/24
Date of Discharge: 05/15/24
-
Pending Results: No
Hospital Course
Primary care physician: Lesly Woo NP
Outpatient elevator constructor: Terence Bragg
Inpatient consultants: [facility] Cardiology
Procedures:
1. Coronary artery bypass grafting
Primary Diagnosis:
1. NSTEMI, triple-vessel coronary disease
Secondary Diagnoses:
1. Hypertension
2. Type 2 diabetes (A1c 10.6) right carotid stenosis (100% occluded)
3. Hyperlipidemia
4. Postoperative acute blood loss anemia and coagulopathy
5. Post-operative Paraphimosis
6. Postoperative urinary retention
7. pressure injury (buttocks)
HPI: 58-year-old Bulgarian male initially presented to [facility] with complaints of chest pain x 2 to 3 days. Patient found to be hypertensive (BP 209/109) and EKG showed some abnormal T wave inversions. Patient ruled in for non-STEMI
with positive troponins and heparin infusion was initiated. Echocardiogram showed an EF of 55-60% with apical anterior and apex abnormalities. Patient underwent left heart cath on 05/04 which reported multivessel disease. Therefore he was
transferred to [facility] for surgical evaluation.
Hospital course: Preop cardiac workup included a carotid ultrasound which revealed occluded right internal carotid artery. Confirmatory CT of head and neck confirmed right internal carotid artery occlusion and patent left carotid. Vascular surgery
commented on film and recommended outpatient follow-up surveillance. Diabetes was noted to be under poor control with an A1c of 10.6, and diabetes nurse practitioner consult was placed for recommendations. Patient underwent CABG x 4 with LONGORIA to
LAD, radial to OM 2, saphenous vein graft to D2, and saphenous vein graft to RPDA with Dr. Olu Zaragoza. Intraoperative RODRÍGUEZ reported EF of 60-65%. Patient required 3 PRBC Intra-Op and 1 PRBC postop plus 2 FFP and 2 pools of platelets IntraOp for
surgical blood loss anemia and coagulopathy. Patient returned to CVICU on Levophed at 6, Precedex, and insulin. Patient had no temporary pacing wires. Patient had minimal bleeding. Patient was extubated at 0421 postoperative day #1. Chest
drains were discontinued on postoperative day #2 and patient required straight cath x 1 for urinary retention. Patient successfully voided afterward. Small skin tears were noted on the posterior thorax. Pressure injury to B/L buttocks (skin
intact). Wound care team was consulted and recommended offloading pressure points with Vashe and Xeroform dressing. No Sting barrier and silicone foam DTI on buttocks.
Home medication change
Humulin 70/30 dosage changed
Stop Losartan
New meds as listed below
Discharge Plan
-
Patient Disposition: Home (Routine Discharge)
Discharge Diagnosis/Procedures: NSTEMI/CX4
Condition: Good
Diet: Low Cholesterol, Low Sodium and Diabetic, Carb Controlled
Activity: No strenuous activity
Driving Restrictions: Not until seen by your Dr
Bathing Restrictions: OK to Shower
Other Services: Cardiac Rehab
Specialty Instructions: Weigh Daily- Call MD for wt gain/loss 3 lbs overnight/5 lbs in 1 week
Activity Restrictions/Additional Instructions:
Wound Care Instructions Linear back wound- Clean with Vashe moistened gauze and cover with Xeroform and silicone border foam. Change daily and PRN if loose or soiled.
Right and Left Buttock DTI- Apply no-sting barrier to right and and left buttock and apply 5 layer silicone sacral foam to left buttock and 4x4 silicone border foam to right buttock. Assess daily and change foam Q 48 hours and PRN if soiled.
Air cushion to chair, change position in chair frequently to reduce pressure to buttocks
Follow up at [facility] wound care center or your local wound care center ([facility]) if wounds worsen, open, or become painful
Follow up at wound care center call for an appointment.
Referrals:
CT Transitional Care Nurse [Outside] - in one to two days
(
The Cardiothoracic Transitional Care Nurse will call you to set up a visit in 1-2 days.)
KALEIGH WOO CRNP [Family Provider] - in four to six weeks (Please make an appointment in four to six weeks. )
Joel Bae III, MD [Active] - (call for appointment for 100% right carotid artery stenosis follow-up)
Darcy Inman MD [Active] - 06/29/24 4:00 pm
Olu Zaragoza MD [Active] - 06/16/24 2:30 pm
Prescriptions:
New
acetaminophen 325 mg Tablet
650 mg PO Q4HPRN PRN (Reason: mild pain,headache,temp >101F ) Qty: 0 0RF
aspirin 81 mg Tablet,Chewable
81 mg PO DAILY Qty: 0 0RF
ferrous sulfate [FeroSul] 325 mg (65 mg iron) Tablet
325 mg PO DAILY Qty: 30 0RF
clopidogrel 75 mg Tablet
75 mg PO DAILY Qty: 30 1RF
pantoprazole 40 mg Tablet,Delayed Release (Dr/Ec)
40 mg PO DAILY Qty: 30 1RF
oxycodone 5 mg Tablet
5 mg PO Q4HPRN PRN (Reason: severe pain) Qty: 20 0RF
amlodipine 5 mg Tablet
2.5 mg PO BID Qty: 60 2RF
gabapentin 300 mg Capsule
300 mg PO TID Qty: 90 0RF
Jardiance 10 mg tablet
10 mg PO DAILY Qty: 30 1RF
insulin asp prt-insulin aspart 100 unit/mL (70-30) Insulin Pen
25 unit SC BID@0800,1700 Qty: 15 1RF
metoprolol succinate [Toprol XL] 25 mg tablet extended release 24 hr
25 mg PO DAILY Qty: 30 1RF
Continued
rosuvastatin 20 mg Tablet
20 mg PO DAILY
Discontinued
losartan 50 mg Tablet
50 mg PO BID
Humulin 70/30 U-100 Insulin
32 units SC BID
Discharge Orders:
Discharge Patient (As Directed); Ordered 05/15/24
Ordered By: Kait Edouard
Care Plan Goals
Care Plan Goals:
Problem: Readiness for enhanced knowledge related to diagnosis and treatment plan
Goal: Understand your diagnosis and treatment plan needs, including medications if applicable.
Instructions: Know your diagnosis, underlying causes and treatment plan options, including medications if applicable. Consult with your health care team to learn about your diagnosis and treatment plan, including medications if applicable.
Discharge Date and Time
Print Language: BELARUSIAN
--- NOTE | 2024-05-15 14:09 | CM ---
Reviewed chart. Met with Mr. Zaragoza and his family to review discharge plans. He states he is feeling well and maybe able to go home soon. We reviewed a home visit by the Transitional Care Nurse. He is agreeable to a home visit. The phone number
is schedule an appointment is his son, ([phone]) and if does not answer the second phone number is Nicole [id number].( [phone]) He ambulated today 75 x 2 today. Medical work-up in progress. The discharge plan is to return home with
his family and a home visit by the Transitional Care Nurse when medically stable.
--- NOTE | 2024-05-15 14:29 | WOUNDNOTE ---
[facility] RN NOTE: Patient visited prior to possible discharge today. Buttock and spine wound appear stable. Spoke to patients [id number], Lola who will be helping care for patient. Explained to Lola that buttock wound is evolving and may
worsen. Wound care orders were reviewed and updated, and wound care supplies given for patient to take home. Patient continues with air cushion to the chair and will take home. Patient and family instructed to ambulate as tolerated and change
position frequently in chair in bed. Patient and family instructed to follow up at local wound center or [facility] if wounds worsen. All stated understanding of instructions. Hospitalist and DINESH Orona given update. Will continue to follow as needed.
--- NOTE | 2024-05-15 14:59 | W.PN.CD ---
Today's Communication / Plan
-
doing well post-op
anemia stable
Impression / Plan
-
IMPRESSION/PLAN: 58M with HTN, HLD, and NIDDM presented to [facility] with chest pain. An abnormal troponin led to [facility] which demonstrated MVCAD. He was subsequently transferred for CABG.
#Multivessel CAD/NSTEMI
- CABG x 4 (ORLY to LAD, GSV to D2, RA to OM, GSV to PDA)/Endoscopic harvest/prep of L RA/ Redo of RA proximal - on-pump/arrested re-exploration of RA to OM distal anastomosis, by Dr. Zaragoza, 05/11/24,
- post op pain. challenging to assess. post op chest discomfort but also just hurts all over. Pain control per CT surgery . repeat ECG stable without ischemic changes
Back pain. low back burning while in bed but resolved
Post op anemia
- hb 7.6, stable
- consider transfusion if drifts further
#HTN emergency
-Acute, resolved.
-We will address blood pressure post op.
#Carotid artery disease
-Chronic.
-NICOLE CHILD AND ADOLESCENT THERAPIST.
#HLD.
-High intensity statin with goal LDL <55
#IDDM
-Chronic, uncontrolled.
-HgbA1c >10%.
-Diabetic BASIC ACOUSTIC ANALYST consulted
-post op management
Subjective/Interval History:
Feeling well. Ambulating halls without symptoms.
No events on telemetry.
DATA:
Transthoracic echocardiogram, 05/04/2024 ([facility]):
1. Left ventricular systolic function is low normal
2. Left ventricular ejection fraction is estimated 55-60%
3. Apical lateral segment, apical anterior segment, and apex are abnormal
4. Grade 1 DD
5. Borderline LVH
6. TDS
7. Mildly dilated LA
8. Mild mitral valve regurgitation
Cardiac catheterization, 05/04/2024 ([facility]):
1. PDA is occluded with collaterals
2. Significant distal RCA lesion
3. Significant mid LAD and proximal and mid junction D2 lesions
4. Significant OM 4 proximal and moderate mid lesions
5. OM 3 is an atretic vessel with subtotal stenosis
6. Mild disease and multiple other areas
Physical Exam
Vital Signs/Labs
Vital Signs
Temp Pulse Resp BP Pulse Ox
36.9 C 97 16 132/65 99
05/15/24 11:53 05/15/24 12:00 05/15/24 11:53 05/15/24 11:53 05/15/24 11:53
05/14/24 05/15/24 05/16/24
06:59 06:59 06:59
Actual Weight 88.8 kg 87.8 kg
05/15/24 07:27
05/15/24 07:27
PT 16.7 Sec (11.4-14.6) H 05/12/24 02:56
INR 1.32 05/12/24 02:56
APTT 36.7 Sec (23.4-35.0) H 05/11/24 18:15
Magnesium 2.5 mg/dl (1.6-2.3) H 05/15/24 07:27
Triglycerides 152 mg/dl (10-149) H 05/04/24 17:17
LDL Cholesterol, Calc 32 mg/dl 05/04/24 17:17
VLDL Cholesterol, Calc 30 mg/dl (0-30) 05/04/24 17:17
HDL Cholesterol 105 mg/dl 05/04/24 17:17
Physical Exam
Constitutional: No acute distress
Cardiovascular: Rhythm & rate is regular and Pedal edema present (1+ r>l)
Respiratory: Respiratory effort normal
Neuro/Psych: AO x 3
Data Reviewed
-
Date of Service: May 15, 2024
Medical Decision Making: Reviewed Test Results
EKG: Tracing Personally Visualized and interpreted
Labs: Labs Reviewed by me
[2024-05-15] MEDS: NEURONTIN PO (15:54)
--- NOTE | 2024-05-15 17:00 | PTCARENOTE ---
Sternal aquacell removed: sternal incision is CDI and well approximated. Showered. DTI wound left buttock and spinal wound care instructions extensively reviewed with family and verbalized and demonstrated understanding.
== END 2024-05-15 18:25 | disposition home or self-care (01) | DRG 236 ==
LOC: CVICU 15:43
PROVIDERS: Anesthesiology; Clinical Nurse Specialist Acute Care; Nurse Practitioner; Physician Assistant; Physician Assistant Medical; ADMITTING PHYSICIAN Thoracic Surgery (Cardiothoracic Vascular Surgery); CONSULT PHYSICIAN Internal Medicine Cardiovascular Disease; CONSULT PHYSICIAN Internal Medicine Critical Care Medicine; FAMILY PHYSICIAN Nurse Practitioner Family; OTHER PHYSICIAN Specialist
PROC: 5A1221Z Performance of Cardiac Output, Continuous (ICD-10-PCS; 2024-05-11)
PROC: 30233K1 Transfusion of Nonautologous Frozen Plasma into Peripheral Vein, Percutaneous Approach (ICD-10-PCS; 2024-05-11)
PROC: 03BC4ZZ Excision of Left Radial Artery, Percutaneous Endoscopic Approach (ICD-10-PCS; 2024-05-11)
PROC: 06BP4ZZ Excision of Right Saphenous Vein, Percutaneous Endoscopic Approach (ICD-10-PCS; 2024-05-11)
PROC: 30233R1 Transfusion of Nonautologous Platelets into Peripheral Vein, Percutaneous Approach (ICD-10-PCS; 2024-05-11)
PROC: 02100ZC Bypass Coronary Artery, One Artery from Thoracic Artery, Open Approach (ICD-10-PCS; 2024-05-11)
PROC: B24BZZ4 Ultrasonography of Heart with Aorta, Transesophageal (ICD-10-PCS; 2024-05-11)
PROC: 021109W Bypass Coronary Artery, Two Arteries from Aorta with Autologous Venous Tissue, Open Approach (ICD-10-PCS; 2024-05-11)
PROC: 30233N1 Transfusion of Nonautologous Red Blood Cells into Peripheral Vein, Percutaneous Approach (ICD-10-PCS; 2024-05-11)
PROC: 02100AW Bypass Coronary Artery, One Artery from Aorta with Autologous Arterial Tissue, Open Approach (ICD-10-PCS; 2024-05-11)
DX: I21.4 Non-ST elevation (NSTEMI) myocardial infarction (principal); D62 Acute posthemorrhagic anemia; I16.1 Hypertensive emergency; D68.8 Other specified coagulation defects; J98.11 Atelectasis; N17.9 Acute kidney failure, unspecified; E11.9 Type 2 diabetes mellitus without complications; I10 Essential (primary) hypertension; E78.00 Pure hypercholesterolemia, unspecified; I25.10 Atherosclerotic heart disease of native coronary artery without angina pectoris; I65.21 Occlusion and stenosis of right carotid artery; D69.59 Other secondary thrombocytopenia; E83.51 Hypocalcemia; N47.2 Paraphimosis; R33.8 Other retention of urine; K21.9 Gastro-esophageal reflux disease without esophagitis; E87.70 Fluid overload, unspecified; E86.1 Hypovolemia; L89.321 Pressure ulcer of left buttock, stage 1; L89.311 Pressure ulcer of right buttock, stage 1; I25.2 Old myocardial infarction; Z11.52 Encounter for screening for COVID-19; Z79.4 Long term (current) use of insulin; Z79.899 Other long term (current) drug therapy; Z82.49 Family history of ischemic heart disease and other diseases of the circulatory system
CPT/HCPCS: 70496; 70498; 71045; 71046; 71250; 80048; 80053; 80061; 81003; 81015; 82248; 82330; 82565; 82805; 82947; 82962; 83036; 83735; 84132; 84302; 84520; 85014; 85018; 85025; 85027; 85049; 85347; 85384; 85576; 85610; 85730; 86850; 86900; 86901; 86920; 87070; 87502; 87811; 93005; 93312; 93320; 93325; 93880; 93923; 93931; 94002; 94003; 97116; 97162; 97167; 97530; 97535; J2597; P9016; P9045; P9059; P9073; Q9967

== ENCOUNTER → 2024-05-22 12:19 | Outpatient (REF) | payer BC, SELFPAY | LOC: WOUND 12:19 | PROVIDERS: ATTENDING PHYSICIAN Surgery; FAMILY PHYSICIAN Internal Medicine Cardiovascular Disease | DX: L89.151 Pressure ulcer of sacral region, stage 1 (principal); E11.3399 Type 2 diabetes mellitus with moderate nonproliferative diabetic retinopathy without macular edema, unspecified eye; I25.10 Atherosclerotic heart disease of native coronary artery without angina pectoris; I21.4 Non-ST elevation (NSTEMI) myocardial infarction | CPT/HCPCS: 99204 ==